=== PATIENT | female | born 1950 | race Caucasian/White ===

== ENCOUNTER 2016-04-13 19:53 | Inpatient (IN) | payer MEDICARE, BC ==
--- NOTE | 2016-04-13 20:42 | EDM.PDOC ---
ED HISTORY OF PRESENT ILLNESS - General Chief Complaint: Respiratory Problem Stated Complaint: ILLNESS Time Seen by Provider: 04/13/16 20:10 Source: Reports: Patient, Family History Limitations: Reports: No limitations - History of Present Illness INITIAL COMMENTS - FREE TEXT/NARRATIVE: 65-year-old female with very severe advanced COPD has had increasing shortness of breath over the past several days. She is on Proventil Zithromax 3 times a week and was started on Levaquin several days ago in response to a productive cough. She's also been running "low-grade fevers". She gets very distressed at night, anxious, and can't breathe. Severity: moderate Associated Symptoms: Reports: cough, fever/chills, weakness - Related Data Allergies/ADRs: Allergies Allergy/AdvReac Type Severity Reaction Status Date / Time Cephalosporins Allergy Severe Anaphylactic Verified 04/13/16 19:56 Shock Penicillins Allergy Severe Anaphylactic Verified 04/13/16 19:56 Shock adhesive Allergy Unknown Cannot Verified 04/13/16 19:56 Remember Iodinated Contrast Media - Allergy Itching Verified 04/13/16 19:56 Oral and [Iodinated Contrast Media - IV Dye] erythromycin base AdvReac Unknown Nausea and Verified 04/13/16 19:56 [Erythromycin Base] Vomiting Home Meds: Home Meds Nitroglycerin [Nitrostat] 0.4 mg SL DAILY PRN 12/28/12 [History] Albuterol/Ipratropium [DuoNeb 3.0-0.5 MG/3 ML] 3 ml NEB QIDRT #100 [facility] 03/28/14 [Rx] Budesonide [Pulmicort] 0.5 mg NEB BIDRT #60 [facility] 03/28/14 [Rx] Simethicone [Gas-X] 80 mg PO TID PRN 07/24/14 [History] Cholecalciferol (Vitamin D3) [Vitamin D3] 1,000 units PO DAILY #0 12/12/14 [ History] Acetaminophen [Tylenol] 650 mg PO Q4H PRN 04/28/15 [History] Aspirin [Halfprin] 81 mg PO DAILY 05/29/15 [History] Famotidine [Pepcid] 20 mg PO DAILY 05/29/15 [History] busPIRone [Buspar] 20 mg PO TID 05/29/15 [History] LORazepam [Ativan] 1 mg PO BID 06/10/15 [History] Calcitonin ([place]) [Miacalcin Nasal [place]] 1 spray NS DAILY 10/16/15 [History] Triamcinolone Acetonide [Triamcinolone Acetonide 0.1% Crm] 1 dose TOP DAILY PRN 10/16/15 [History] Warfarin [Coumadin] 5 mg PO ASDIRECTED 10/16/15 [History] Warfarin [Coumadin] 7.5 mg PO ASDIRECTED 10/16/15 [History] Arformoterol [Brovana] 15 mcg NEB BID neb 10/20/15 [Rx] guaiFENesin [Mucinex] 400 mg PO TID 12/20/15 [History] ALPRAZolam [Alprazolam] 0.25 mg PO BID PRN #20 tablet 12/21/15 [Rx] Citalopram Hydrobromide [Celexa] 20 mg PO DAILY 12/29/15 [History] Carvedilol 12.5 mg PO BID 02/08/16 [History] Prednisone [IJD: predniSONE] 10 mg PO WITHBREAKFAST 02/08/16 [History] rOPINIRole [Requip] 1 mg PO BEDTIME 02/08/16 [History] Diltiazem [Dilacor XR] 180 mg PO DAILY 02/24/16 [History] Azithromycin 500 mg PO ASDIRECTED 04/13/16 [History] Bumetanide [Bumex] 1 mg PO BID 04/13/16 [History] L.acidoph,Paracasei, B.lactis [Probiotic] 2 each PO DAILY 04/13/16 [History] Levofloxacin [Levaquin] 250 mg PO DAILY 04/13/16 [History] Mirtazapine [Remeron] 22.5 mg PO BEDTIME 04/13/16 [History] Morphine [MS Contin] 15 mg PO Q12H 04/13/16 [History] Nystatin [Mycostatin] 500,000 unit PO QID 04/13/16 [History] Potassium Chloride [Klor-Con M20] 20 meq PO BID 04/13/16 [History] Sennosides/Docusate Sodium [Senna Laxative Tablet] 1 tab PO BID 04/13/16 [ History] Tiotropium [Spiriva] 18 mcg INH DAILY 04/13/16 [History] oxyCODONE 10 mg PO BID PRN 04/13/16 [History] Past Medical History HEENT History: Reports: Cataract, Other (see below) Other HEENT History: dry nose Cardiovascular History: Reports: Aneurysm, CAD, Hypertension, VT, SOB on exertion Other Cardiovascular History: 3 stents, aneurysm was repaired Respiratory History: Reports: Asthma, Bronchitis, recurrent, COPD, Intubation, previous, Pneumonia, recurrent, SOB Gastrointestinal History: Reports: Chronic diarrhea, Irritable bowel syndrome, Other (see below) Other Gastrointestinal History: microscopic colitis Genitourinary History: Reports: Renal calculus, Other (see below) Other Genitourinary History: incontient a lot lately per pt 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: , Spontaneous Musculoskeletal History: Reports: Arthritis, Back pain, chronic, Fibromyalgia, Osteoporosis, Other (see below) Other Musculoskeletal History: compression fx Neurological History: Reports: Other (see below) Other Neuro History: compression fractures Psychiatric History: Reports: Anxiety, Depression Endocrine/Metabolic History: Reports: Osteoporosis Hematologic History: Reports: Other (see below) Other Hematologic History: v Leiden factor five Dermatologic History: Reports: Eczema, Other (see below) Other Dermatologic History: bruises easily related to coumadin, prednisone - Infectious Disease History Infectious Disease History: Reports: Chicken pox Other Infectious Disease History: hx of Hepatitis as a child, pt. does not know which one - Past Surgical History Cardiovascular Surgical History: Reports: Aneurysm, Coronary artery stent GI Surgical History: Reports: Appendectomy, Cholecystectomy, Colonoscopy Other GI Surgeries/Procedures: recent [facility] micrscopic colitis Female Surgical History: Reports: Breast biopsy, Other (see below) Other Female Surgeries/Procedures: cystoscopy x1 for hematuria Neurological Surgical History: Reports: Vertebroplasty Musculoskeletal Surgical History: Reports: Shoulder surgery Social & Family History - Family History Family Medical History: Noncontributory Cardiac: Reports: [place] Respiratory: Reports: COPD : Reports: Renal disease/insufficiency Psychiatric: Reports: Depression - Tobacco Use Smoking Status *Q: Former Smoker Years of Tobacco use: 50 Packs/Tins Daily: 0 Used Tobacco, but Quit: Yes Month Tobacco Last Used: 2012 Second Hand Smoke Exposure: No - Caffeine Use Caffeine Use: Reports: Coffee, Soda, Tea Caffeine Use Comment: 3-4 cups a day - Alcohol Use Days Per Week of Alcohol Use: 3 Number of Drinks Per Day: 1 Total Drinks Per Week: 3 - Recreational Drug Use Recreational Drug Use: No Recreational Drug Type: Reports: Oxycodone Other Recreational Drug Type: per prescription Recreational Drug Use Frequency: Daily - Living Situation & Occupation Living situation: Reports: , alone, other (Has 3 children: Lisbet and Lia, one son Steven.) Occupation: retired (lives alone in [place], [place]., has one cat, 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.) ED ROS GENERAL - Review of Systems Review Of Systems: See Below Constitutional: Reports: fever, chills, malaise HEENT: Reports: No symptoms Respiratory: Reports: shortness of breath, cough, sputum Cardiovascular: Denies: Chest pain GI/Abdominal: Denies: Nausea, Vomiting Musculoskeletal: Reports: back pain Neurological: Denies: headache Psychiatric: Reports: Anxiety ED EXAM, GENERAL - Physical Exam Exam: See Below Exam Limited By: No limitations General Appearance: alert, mild distress Eye Exam: bilateral eye: EOMI Respiratory/Chest: respiratory distress (Patient displays mild respiratory distress with increased effort. She has diffuse decreased breath sounds and also diffuse expiratory wheezes.) Cardiovascular: regular rate, rhythm GI/Abdominal: soft, non tender Neurological: alert, oriented Psychiatric: anxious Course - Vital Signs Last Recorded V/S: Last Vital Signs Temp 97.8 F 04/14/16 15:00 Pulse 81 04/14/16 14:34 Resp 16 04/14/16 17:00 BP 113/61 04/14/16 17:00 Pulse Ox 95 04/14/16 17:00 - Orders/Labs/Meds Orders: Active Orders 24 hr Category Date Time Status Patient Status [ADT] Routine ADT 04/13/16 23:05 Active Bedrest Bathroom Privileges [RC] ASDIRECTED Care 04/13/16 23:05 Active Cardiac Monitoring [RC] Q6H Care 04/13/16 20:26 Active Diabetes Education [RC] Click to Edit Care 04/13/16 23:05 Active Intake and Output [RC] QSHIFT Care 04/13/16 23:05 Active Oxygen Therapy [RC] PRN Care 04/13/16 23:05 Active RT Aerosol Therapy [RC] ASDIRECTED Care 04/13/16 23:05 Active VTE/DVT Education [RC] Per Unit Routine Care 04/13/16 23:05 Active Vital Signs [RC] Q2H Care 04/13/16 23:05 Active CULTURE BLOOD [BC] Urgent Lab 04/13/16 20:30 Received CULTURE BLOOD [BC] Urgent Lab 04/13/16 21:40 Received CULTURE URINE [RM] Stat Lab 04/13/16 21:55 Received ALPRAZolam [Xanax] Med 04/13/16 23:05 Active 0.25 mg PO BID PRN Albuterol [Proventil Neb Soln] Med 04/13/16 23:05 Active 2.5 mg NEB Q4H PRN Albuterol/Ipratropium [DuoNeb 3.0-0.5 MG/3 ML] Med 04/13/16 23:05 Active 3 ml NEB QID PRN Albuterol/Ipratropium [DuoNeb 3.0-0.5 MG/3 ML] Med 04/14/16 07:00 Active 3 ml NEB QIDRT Arformoterol [Brovana] Med 04/13/16 23:05 Active 15 mcg NEB BIDRT Aspirin [Halfprin] Med 04/14/16 09:00 Active 81 mg PO DAILY Bisacodyl [Dulcolax] Med 04/13/16 23:05 Active 5 mg PO DAILY PRN Budesonide [Pulmicort] Med 04/14/16 07:00 Active 0.5 mg NEB BIDRT Carvedilol [Coreg] Med 04/14/16 09:00 Active 12.5 mg PO BIDMEALS Citalopram [Celexa] Med 04/14/16 09:00 Active 20 mg PO DAILY Diltiazem [Cardizem CD] Med 04/14/16 09:00 Active 180 mg PO DAILY Docusate Sodium [Colace] Med 04/13/16 23:05 Active 100 mg PO BID PRN Docusate Sodium/Sennosides [Senna Plus] Med 04/14/16 09:00 Active 1 tab PO BID Famotidine [Pepcid] Med 04/14/16 09:00 Active 20 mg PO DAILY Insulin Aspart [NovoLOG] Med 04/13/16 23:05 Active See Protocol SUBCUT ASDIRECTED Levofloxacin/Dextrose 5%-Water [Levaquin in D5W 500 MG/ Med 04/13/16 23:05 Active 100 ML] 500 mg Premix Bag 1 bag IV Q24H Mirtazapine [Remeron] Med 04/13/16 23:05 Active 22.5 mg PO BEDTIME Morphine [MS Contin] Med 04/13/16 23:05 Active 15 mg PO Q12H Nitroglycerin [Nitrostat] Med 04/13/16 23:05 Active 0.4 mg SL DAILY PRN Nystatin [Mycostatin] Med 04/14/16 00:00 Active 5 ml PO QID Ondansetron [Zofran] Med 04/13/16 23:05 Active 4 mg IV Q4H PRN Tiotropium [Spiriva HandiHaler] Med 04/14/16 07:00 Active 18 mcg INH DAILYRT Triamcinolone Acetonide [Triamcinolone Acetonide 0.1% Med 04/13/16 23:05 Active Crm] 0 gm TOP DAILY PRN Warfarin [Coumadin] Med 04/14/16 13:00 Active 5 mg PO MoFr@1300 Zolpidem [Ambien] Med 04/13/16 23:05 Active 5 mg PO BEDTIME PRN busPIRone [Buspar] Med 04/14/16 09:00 Active 20 mg PO TID guaiFENesin [Mucinex] Med 04/14/16 09:00 Active 600 mg PO BID oxyCODONE Med 04/13/16 23:05 Active 10 mg PO BID PRN rOPINIRole [Requip] Med 04/14/16 21:00 Active 1 mg PO BEDTIME Blood Culture x2 Reflex Set [OM.PC] Urgent Oth 04/13/16 20:26 Ordered Sequential Compression Device [OM.PC] Per Unit Routine Oth 04/13/16 23:05 Ordered Resuscitation Status Routine Resus Stat 04/13/16 22:26 Ordered Medication Orders Albuterol (Proventil Neb Soln) 2.5 mg NEB Q4H PRN PRN Reason: Shortness Of Breath/wheezing Albuterol/Ipratropium (Duoneb 3.0-0.5 Mg/3 Ml) 3 ml NEB QID PRN PRN Reason: Shortness Of Breath/wheezing Albuterol/Ipratropium (Duoneb 3.0-0.5 Mg/3 Ml) 3 ml NEB QIDRT [facility] Last Admin: 04/14/16 14:34 Dose: 3 ml Admin: 04/14/16 10:57 Dose: 3 ml Admin: 04/14/16 07:07 Dose: 3 ml Alprazolam (Xanax) 0.25 mg PO BID PRN PRN Reason: panic attack Last Admin: 04/14/16 00:38 Dose: 0.25 mg Arformoterol Tartrate (Brovana) 15 mcg NEB BIDRT [facility] Last Admin: 04/14/16 08:50 Dose: 15 mcg Admin: 04/14/16 01:08 Dose: Aspirin (Halfprin) 81 mg PO DAILY [facility] Last Admin: 04/14/16 08:16 Dose: 81 mg Bisacodyl (Dulcolax) 5 mg PO DAILY PRN PRN Reason: Constipation Budesonide (Pulmicort) 0.5 mg NEB BIDRT [facility] Last Admin: 04/14/16 07:07 Dose: 0.5 mg Buspirone HCl (Buspar) 20 mg PO TID [facility] Last Admin: 04/14/16 13:47 Dose: 20 mg Admin: 04/14/16 08:15 Dose: 20 mg Carvedilol (Coreg) 12.5 mg PO BIDMEALS [facility] Last Admin: 04/14/16 17:04 Dose: 12.5 mg Admin: 04/14/16 08:16 Dose: 12.5 mg Citalopram Hydrobromide (Celexa) 20 mg PO DAILY [facility] Last Admin: 04/14/16 08:15 Dose: 20 mg Diltiazem HCl (Cardizem Cd) 180 mg PO DAILY [facility] Last Admin: 04/14/16 08:15 Dose: 180 mg Docusate Sodium (Colace) 100 mg PO BID PRN PRN Reason: Constipation Docusate Sodium (Colace) 100 mg PO BID [facility] Last Admin: 04/14/16 11:45 Dose: 100 mg Famotidine (Pepcid) 20 mg PO DAILY [facility] Last Admin: 04/14/16 08:16 Dose: 20 mg Guaifenesin (Mucinex) 600 mg PO BID [facility] Last Admin: 04/14/16 08:16 Dose: 600 mg Levofloxacin/Dextrose 500 mg/ (Premix) 100 mls @ 100 mls/hr IV Q24H [facility] Last Admin: 04/14/16 01:03 Dose: 100 mls/hr Sodium Chloride (Normal Saline) 1,000 mls @ 75 mls/hr IV ASDIRECTED [facility] Insulin Aspart (Novolog) 0 unit SUBCUT ASDIRECTED [facility] PRN Reason: Protocol Last Admin: 04/14/16 17:05 Dose: 1 unit Admin: 04/14/16 12:04 Dose: 2 unit Admin: 04/14/16 08:21 Dose: 1 unit Lorazepam (Ativan) 1 mg IVPUSH Q2H PRN PRN Reason: Anxiety Last Admin: 04/14/16 14:19 Dose: 1 mg Methylprednisolone Sodium Succinate (Solu-Medrol) 40 mg IVPUSH Q6H [facility] Last Admin: 04/14/16 17:04 Dose: 40 mg Admin: 04/14/16 11:45 Dose: 40 mg Mirtazapine (Remeron) 22.5 mg PO BEDTIME [facility] Last Admin: 04/14/16 01:06 Dose: 22.5 mg Morphine Sulfate (Ms Contin) 15 mg PO Q12H [facility] Stop: 04/18/16 23:59 Last Admin: 04/14/16 11:45 Dose: 15 mg Admin: 04/14/16 00:22 Dose: 15 mg Nitroglycerin (Nitrostat) 0.4 mg SL DAILY PRN PRN Reason: Chest Pain Nystatin (Mycostatin) 5 ml PO QID [facility] Last Admin: 04/14/16 17:04 Dose: 5 ml Admin: 04/14/16 09:43 Dose: 5 ml Admin: 04/14/16 05:32 Dose: Admin: 04/14/16 01:15 Dose: Ondansetron HCl (Zofran) 4 mg IV Q4H PRN PRN Reason: Nausea/Vomiting Oxycodone HCl (Oxycodone) 10 mg PO BID PRN PRN Reason: Pain Polyethylene Glycol (Miralax) 17 gm PO DAILY [facility] Last Admin: 04/14/16 11:45 Dose: 17 gm Ropinirole HCl (Requip) 1 mg PO BEDTIME [facility] Senna/Docusate Sodium (Senna Plus) 1 tab PO BID [facility] Last Admin: 04/14/16 09:43 Dose: 1 tab Tiotropium [place] (Spiriva Handihaler) 18 mcg INH DAILYRT [facility] Last Admin: 04/14/16 08:50 Dose: 18 mcg Triamcinolone Acetonide (Triamcinolone Acetonide 0.1% Crm) 0 gm TOP DAILY PRN PRN Reason: Rash Warfarin Sodium (Coumadin) 5 mg PO MoFr@1300 [facility] Last Admin: 04/14/16 13:46 Dose: 5 mg Warfarin Sodium (Coumadin) 7.5 mg PO SuTuWeThSa@1300 [facility] Zolpidem Tartrate (Ambien) 5 mg PO BEDTIME PRN PRN Reason: Sleep Labs: Laboratory Tests 04/13/16 04/13/16 04/13/16 Range/Units 20:23 20:23 20:29 WBC 10.3 (4.5-11.0) K/uL RBC 3.44 (3.30-5.50) M/uL Hgb 10.7 L (12.0-15.0) g/dL Hct 35.8 L (36.0-48.0) % MCV 104 H (80-98) fL MCH 31 (27-31) pg MCHC 30 L (32-36) % Plt Count 206 (150-400) K/uL Neut % (Auto) 63 (36-66) % Lymph % (Auto) 10 L (24-44) % [place] % (Auto) 13 H (2-6) % Eos % (Auto) 14 H (2-4) % Baso % (Auto) 1 (0-1) % PT 29.4 H (9.5-12.0) sec INR 2.69 H (0.80-1.20) Puncture Site ABG pH (7.350-7.450) ABG pCO2 (35.0-42.0) mmHg ABG pO2 (75.0-100.0) mmHg ABG HCO3 (22.0-26.0) mmol/L ABG Total CO2 (21.0-25.0) mmol/L ABG O2 Saturation (95.0-98.0) % ABG O2 Content (15.0-23.0) %vol ABG Base Excess mm/L ABG Hemoglobin (12.0-16.0) g/dL ABG Oxyhemoglobin % ABG Carboxyhemoglobin (0.0-1.6) % ABG Methemoglobin % Cornelio Test O2 Delivery Device Oxygen Flow Rate L Sodium 144 (140-148) mmol/L Potassium 4.4 (3.6-5.2) mmol/L Chloride 105 (100-108) mmol/L Carbon Dioxide 35 H (21-32) mmol/L Anion Gap 8.4 (5.0-14.0) mmol/L BUN 21 H (7-18) mg/dL Creatinine 1.3 H (0.6-1.0) mg/dL Est Cr Clr Drug Dosing 32.92 mL/min Estimated GFR (MDRD) 41 L (>60) Glucose 135 H (74-106) mg/dL Lactic Acid (0.4-2.0) mmol/L Calcium 8.4 L (8.5-10.1) mg/dL Magnesium (1.8-2.4) mg/dL Amylase (25-115) U/L Lipase (73-393) U/L Urine Color Urine Appearance Urine pH (4.5-8.0) Ur Specific [place] (1.008-1.030) Urine Protein (NEGATIVE) mg/dL Urine Glucose (UA) (NEGATIVE) mg/dL Urine Ketones (NEGATIVE) mg/dL Urine Occult Blood (NEGATIVE) Urine Nitrite (NEGATIVE) Urine Bilirubin (NEGATIVE) Urine Urobilinogen (NORMAL) mg/dL Ur Leukocyte Esterase (NEGATIVE) Urine RBC (0-5) Urine WBC (0-5) Ur Epithelial Cells Amorphous Sediment Urine Bacteria Urine Mucus 04/13/16 04/13/16 04/13/16 Range/Units 20:31 20:42 21:30 WBC (4.5-11.0) K/uL RBC (3.30-5.50) M/uL Hgb (12.0-15.0) g/dL Hct (36.0-48.0) % MCV (80-98) fL MCH (27-31) pg MCHC (32-36) % Plt Count (150-400) K/uL Neut % (Auto) (36-66) % Lymph % (Auto) (24-44) % [place] % (Auto) (2-6) % Eos % (Auto) (2-4) % Baso % (Auto) (0-1) % PT (9.5-12.0) sec INR (0.80-1.20) Puncture Site Lt.radial ABG pH 7.374 (7.350-7.450) ABG pCO2 54.8 H (35.0-42.0) mmHg ABG pO2 77.3 (75.0-100.0) mmHg ABG HCO3 31.3 H (22.0-26.0) mmol/L ABG Total CO2 29.0 H (21.0-25.0) mmol/L ABG O2 Saturation 95.0 (95.0-98.0) % ABG O2 Content 13.9 L (15.0-23.0) %vol ABG Base Excess 5.5 mm/L ABG Hemoglobin 10.5 L (12.0-16.0) g/dL ABG Oxyhemoglobin 93.7 % ABG Carboxyhemoglobin 0.6 (0.0-1.6) % ABG Methemoglobin 0.8 % Cornelio Test Passed O2 Delivery Device Nasal cannula Oxygen Flow Rate 4 L Sodium (140-148) mmol/L Potassium (3.6-5.2) mmol/L Chloride (100-108) mmol/L Carbon Dioxide (21-32) mmol/L Anion Gap (5.0-14.0) mmol/L BUN (7-18) mg/dL Creatinine (0.6-1.0) mg/dL Est Cr Clr Drug Dosing mL/min Estimated GFR (MDRD) (>60) Glucose (74-106) mg/dL Lactic Acid 1.2 (0.4-2.0) mmol/L Calcium (8.5-10.1) mg/dL Magnesium 2.3 (1.8-2.4) mg/dL Amylase 46 (25-115) U/L Lipase 131 (73-393) U/L Urine Color Urine Appearance Urine pH (4.5-8.0) Ur Specific [place] (1.008-1.030) Urine Protein (NEGATIVE) mg/dL Urine Glucose (UA) (NEGATIVE) mg/dL Urine Ketones (NEGATIVE) mg/dL Urine Occult Blood (NEGATIVE) Urine Nitrite (NEGATIVE) Urine Bilirubin (NEGATIVE) Urine Urobilinogen (NORMAL) mg/dL Ur Leukocyte Esterase (NEGATIVE) Urine RBC (0-5) Urine WBC (0-5) Ur Epithelial Cells Amorphous Sediment Urine Bacteria Urine Mucus 04/13/16 Range/Units 21:55 WBC (4.5-11.0) K/uL RBC (3.30-5.50) M/uL Hgb (12.0-15.0) g/dL Hct (36.0-48.0) % MCV (80-98) fL MCH (27-31) pg MCHC (32-36) % Plt Count (150-400) K/uL Neut % (Auto) (36-66) % Lymph % (Auto) (24-44) % [place] % (Auto) (2-6) % Eos % (Auto) (2-4) % Baso % (Auto) (0-1) % PT (9.5-12.0) sec INR (0.80-1.20) Puncture Site ABG pH (7.350-7.450) ABG pCO2 (35.0-42.0) mmHg ABG pO2 (75.0-100.0) mmHg ABG HCO3 (22.0-26.0) mmol/L ABG Total CO2 (21.0-25.0) mmol/L ABG O2 Saturation (95.0-98.0) % ABG O2 Content (15.0-23.0) %vol ABG Base Excess mm/L ABG Hemoglobin (12.0-16.0) g/dL ABG Oxyhemoglobin % ABG Carboxyhemoglobin (0.0-1.6) % ABG Methemoglobin % Cornelio Test O2 Delivery Device Oxygen Flow Rate L Sodium (140-148) mmol/L Potassium (3.6-5.2) mmol/L Chloride (100-108) mmol/L Carbon Dioxide (21-32) mmol/L Anion Gap (5.0-14.0) mmol/L BUN (7-18) mg/dL Creatinine (0.6-1.0) mg/dL Est Cr Clr Drug Dosing mL/min Estimated GFR (MDRD) (>60) Glucose (74-106) mg/dL Lactic Acid (0.4-2.0) mmol/L Calcium (8.5-10.1) mg/dL Magnesium (1.8-2.4) mg/dL Amylase (25-115) U/L Lipase (73-393) U/L Urine Color Yellow Urine Appearance Clear Urine pH 8.0 (4.5-8.0) Ur Specific [place] 1.015 (1.008-1.030) Urine Protein Negative (NEGATIVE) mg/dL Urine Glucose (UA) Normal (NEGATIVE) mg/dL Urine Ketones Negative (NEGATIVE) mg/dL Urine Occult Blood Negative (NEGATIVE) Urine Nitrite Negative (NEGATIVE) Urine Bilirubin Negative (NEGATIVE) Urine Urobilinogen Normal (NORMAL) mg/dL Ur Leukocyte Esterase Negative (NEGATIVE) Urine RBC 0-5 (0-5) Urine WBC 10-20 H (0-5) Ur Epithelial Cells Few Amorphous Sediment Not seen Urine Bacteria Many Urine Mucus Not seen Meds: Medications Generic Name Dose Route Start Last Admin Trade Name Freq PRN Reason Stop Dose Admin Albuterol 2.5 mg 04/13/16 23:05 Proventil Neb Soln NEB Q4H PRN Shortness Of Breath/wheezing Albuterol/Ipratropium 3 ml 04/13/16 23:05 Duoneb 3.0-0.5 Mg/3 Ml NEB QID PRN Shortness Of Breath/wheezing Albuterol/Ipratropium 3 ml 04/14/16 07:00 04/14/16 14:34 Duoneb 3.0-0.5 Mg/3 Ml NEB 3 ml QIDRT [facility] Administration Alprazolam 0.25 mg 04/13/16 23:05 04/14/16 00:38 Xanax PO 0.25 mg BID PRN Administration panic attack Arformoterol Tartrate 15 mcg 04/13/16 23:05 04/14/16 08:50 Brovana NEB 15 mcg BIDRT [facility] Administration Aspirin 81 mg 04/14/16 09:00 04/14/16 08:16 Halfprin PO 81 mg DAILY [facility] Administration Bisacodyl 5 mg 04/13/16 23:05 Dulcolax PO DAILY PRN Constipation Budesonide 0.5 mg 04/14/16 07:00 04/14/16 07:07 Pulmicort NEB 0.5 mg BIDRT [facility] Administration Buspirone HCl 20 mg 04/14/16 09:00 04/14/16 13:47 Buspar PO 20 mg TID [facility] Administration Carvedilol 12.5 mg 04/14/16 09:00 04/14/16 17:04 Coreg PO 12.5 mg BIDMEALS [facility] Administration Citalopram Hydrobromide 20 mg 04/14/16 09:00 04/14/16 08:15 Celexa PO 20 mg DAILY [facility] Administration Diltiazem HCl 180 mg 04/14/16 09:00 04/14/16 08:15 Cardizem Cd PO 180 mg DAILY [facility] Administration Docusate Sodium 100 mg 04/13/16 23:05 Colace PO BID PRN Constipation Docusate Sodium 100 mg 04/14/16 11:00 04/14/16 11:45 Colace PO 100 mg BID [facility] Administration Famotidine 20 mg 04/14/16 09:00 04/14/16 08:16 Pepcid PO 20 mg DAILY [facility] Administration Guaifenesin 600 mg 04/14/16 09:00 04/14/16 08:16 Mucinex PO 600 mg BID [facility] Administration Levofloxacin/Dextrose 500 mg/ 100 mls @ 100 mls/hr 04/13/16 23:05 04/14/16 01 :03 Premix IV 100 mls/hr Q24H [facility] Administration Sodium Chloride 1,000 mls @ 75 mls/hr 04/14/16 10:30 Normal Saline IV ASDIRECTED [facility] Insulin Aspart 0 unit 04/13/16 23:05 04/14/16 17:05 Novolog SUBCUT 1 unit ASDIRECTED [facility] Administration Protocol Lorazepam 1 mg 04/14/16 02:10 04/14/16 14:19 Ativan IVPUSH 1 mg Q2H PRN Administration Anxiety Methylprednisolone Sodium Succinate 40 mg 04/14/16 11:00 04/14/16 17:04 Solu-Medrol IVPUSH 40 mg Q6H [facility] Administration Mirtazapine 22.5 mg 04/13/16 23:05 04/14/16 01:06 Remeron PO 22.5 mg BEDTIME [facility] Administration Morphine Sulfate 15 mg 04/13/16 23:05 04/14/16 11:45 Ms Contin PO 04/18/16 23:59 15 mg Q12H DAVIN Administration Nitroglycerin 0.4 mg 04/13/16 23:05 Nitrostat SL DAILY PRN Chest Pain Nystatin 5 ml 04/14/16 00:00 04/14/16 17:04 Mycostatin PO 5 ml QID DAVIN Administration Ondansetron HCl 4 mg 04/13/16 23:05 Zofran IV Q4H PRN Nausea/Vomiting Oxycodone HCl 10 mg 04/13/16 23:05 Oxycodone PO BID PRN Pain Polyethylene Glycol 17 gm 04/14/16 11:00 04/14/16 11:45 Miralax PO 17 gm DAILY DAVIN Administration Ropinirole HCl 1 mg 04/14/16 21:00 Requip PO BEDTIME DAVIN Senna/Docusate Sodium 1 tab 04/14/16 09:00 04/14/16 09:43 Senna Plus PO 1 tab BID DAVIN Administration Tiotropium Aurora 18 mcg 04/14/16 07:00 04/14/16 08:50 Spiriva Handihaler INH 18 mcg DAILYRT DAVIN Administration Triamcinolone Acetonide 0 gm 04/13/16 23:05 Triamcinolone Acetonide 0.1% Crm TOP DAILY PRN Rash Warfarin Sodium 5 mg 04/14/16 13:00 04/14/16 13:46 Coumadin PO 5 mg [id number] DAVIN Administration Warfarin Sodium 7.5 mg 04/15/16 13:00 Coumadin PO [email or web address] DAVIN Zolpidem Tartrate 5 mg 04/13/16 23:05 Ambien PO BEDTIME PRN Sleep Discontinued Medications Generic Name Dose Route Start Last Admin Trade Name Carringtonq PRN Reason Stop Dose Admin Lorazepam 1 mg 04/13/16 22:02 04/13/16 22:19 Ativan IVPUSH 04/13/16 22:03 1 mg ONETIME ONE Administration Lorazepam 2 mg 04/14/16 02:08 04/14/16 02:08 Ativan IVPUSH 04/14/16 02:09 2 mg ONETIME ONE Administration Methylprednisolone Sodium Succinate 125 mg 04/14/16 00:00 04/14/16 05:31 Solu-Medrol IVPUSH 125 mg Q6H DAVIN Administration Potassium Chloride 20 meq 04/14/16 09:00 04/14/16 08:15 Klor-Con M20 PO 20 meq BID DAVIN Administration - Re-Assessments/Exams Free Text/Narrative Re-Assessment/Exam: 04/13/16 20:39 A CBC and BMP were obtained. A 1 view chest x-ray was also obtained which looks stable without failure or infiltrates at this time. I asked Mera Giang of the hospitalist service to evaluate the patient for admission for treatment of her symptoms along with IV steroids and evaluate for any other options of treatment. Departure - Departure Time of Disposition: 23:14 Disposition: Admitted As Inpatient 64 Condition: poor Clinical Impression: Bronchitis COPD (chronic obstructive pulmonary disease) Qualifiers: COPD type: emphysema Emphysema type: panlobular Qualified Code(s): J43.1 - Panlobular emphysema Anxiety disorder Qualifiers: Anxiety disorder type: other mixed anxiety disorder Qualified Code(s): F41.3 - Other mixed anxiety disorders
[2016-04-13] MEDS ORDERED: LORazepam 2 MG/ML MDV IVPUSH ONE (22:02)
[2016-04-13] MEDS ORDERED: Bisacodyl 5 MG Tab PO PRN (23:05)
[2016-04-13] MEDS ORDERED: Ondansetron 4 MG/2 ML SDV IV PRN (23:05)
[2016-04-13] MEDS ORDERED: Zolpidem 5 MG Tab PO PRN (23:05)
[2016-04-13] MEDS ORDERED: Albuterol/Ipratropium 3.0-0.5 MG/3 ML Neb Soln NEB PRN (23:05)
[2016-04-13] MEDS ORDERED: oxyCODONE 5 MG Tab PO PRN (23:05)
[2016-04-13] MEDS ORDERED: Nitroglycerin 0.4 MG Tab.SL SL PRN (23:05)
[2016-04-13] MEDS ORDERED: Triamcinolone Acetonide 0.1% Crm 15 GM Tube TOP PRN (23:05)
[2016-04-14] MEDS: Morphine 15 MG Tab.ER PO SCH ×3 (00:22→22:22)
[2016-04-14] MEDS: methylPREDNISolone Sodium Succinate 125 MG/2 ML SDV IVPUSH SCH ×2 (00:23→05:31)
[2016-04-14] MEDS: ALPRAZolam 0.25 MG Tab PO PRN (00:38)
[2016-04-14] MEDS: Levofloxacin/Dextrose 5%-Water 500 MG in Premix Bag 1 BAG IV SCH ×2 (01:03→22:15)
[2016-04-14] MEDS: Mirtazapine 15 MG Tab PO SCH ×2 (01:06→20:21)
[2016-04-14] MEDS: Arformoterol 15 MCG/2 ML Neb Soln NEB SCH ×3 (01:08→20:14)
[2016-04-14] MEDS: Nystatin Susp 100,000 Unit/ML 5 ML UD Cup PO SCH ×5 (01:15→22:13)
[2016-04-14] MEDS ORDERED: LORazepam 2 MG/ML MDV IVPUSH ONE (02:08)
--- NOTE | 2016-04-14 05:56 | PCM.HP ---
H&P History of Present Illness - General Date of Service: 04/13/16 Source of Information: Patient, EMS, [facility] records History Limitations: Reports: No limitations - History of Present Illness Initial Comments - Free Text/Narative: - History of Present Illness INITIAL COMMENTS - FREE TEXT/NARRATIVE: 65-year-old female with very severe advanced COPD has had increasing shortness of breath over the past several days. She is on Proventil Zithromax 3 times a week and was started on Levaquin several days ago in response to a productive cough. She's also been running "low-grade fevers". She gets very distressed at night, anxious, and can't breathe. Severity: moderate 04/13/16 20:39 A CBC and BMP were obtained. A 1 view chest x-ray was also obtained which looks stable without failure or infiltrates at this time. I asked Mera Giang of the hospitalist service to evaluate the patient for admission for treatment of her symptoms along with IV steroids and evaluate for any other options of treatment. Onset of Symptoms: Reports: sudden Duration of Symptoms: Reports: Getting worse Location: Reports: chest Quality: Reports: Same as previous episode Improves with: Reports: None Worsens with: Reports: None Context: Reports: other (chronic COPD) Associated Symptoms: Reports: cough, fever/chills (low grade temp for 2 days. 100.9 and 99), shortness of breath (worse of respiratory status) - Related Data Allergies/Adverse Reactions: Allergies Allergy/AdvReac Type Severity Reaction Status Date / Time Cephalosporins Allergy Severe Anaphylactic Verified 04/13/16 19:56 Shock Penicillins Allergy Severe Anaphylactic Verified 04/13/16 19:56 Shock adhesive Allergy Unknown Cannot Verified 04/13/16 19:56 Remember Iodinated Contrast Media - Allergy Itching Verified 04/13/16 19:56 Oral and [Iodinated Contrast Media - IV Dye] erythromycin base AdvReac Unknown Nausea and Verified 04/13/16 19:56 [Erythromycin Base] Vomiting Home Medications: Home Meds Nitroglycerin [Nitrostat] 0.4 mg SL DAILY PRN 12/28/12 [History] Albuterol/Ipratropium [DuoNeb 3.0-0.5 MG/3 ML] 3 ml NEB QIDRT #100 neb 03/28/14 [Rx] Budesonide [Pulmicort] 0.5 mg NEB BIDRT #60 neb 03/28/14 [Rx] Simethicone [Gas-X] 80 mg PO TID PRN 07/24/14 [History] Cholecalciferol (Vitamin D3) [Vitamin D3] 1,000 units PO DAILY #0 12/12/14 [ History] Acetaminophen [Tylenol] 650 mg PO Q4H PRN 04/28/15 [History] Aspirin [Halfprin] 81 mg PO DAILY 05/29/15 [History] Famotidine [Pepcid] 20 mg PO DAILY 05/29/15 [History] busPIRone [Buspar] 20 mg PO TID 05/29/15 [History] LORazepam [Ativan] 1 mg PO BID 06/10/15 [History] Calcitonin ([place]) [Miacalcin Nasal [place]] 1 spray NS DAILY 10/16/15 [History] Triamcinolone Acetonide [Triamcinolone Acetonide 0.1% Crm] 1 dose TOP DAILY PRN 10/16/15 [History] Warfarin [Coumadin] 5 mg PO ASDIRECTED 10/16/15 [History] Warfarin [Coumadin] 7.5 mg PO ASDIRECTED 10/16/15 [History] Arformoterol [Brovana] 15 mcg NEB BID neb 10/20/15 [Rx] guaiFENesin [Mucinex] 400 mg PO TID 12/20/15 [History] ALPRAZolam [Alprazolam] 0.25 mg PO BID PRN #20 tablet 12/21/15 [Rx] Citalopram Hydrobromide [Celexa] 20 mg PO DAILY 12/29/15 [History] Carvedilol 12.5 mg PO BID 02/08/16 [History] Prednisone [IJD: predniSONE] 10 mg PO WITHBREAKFAST 02/08/16 [History] rOPINIRole [Requip] 1 mg PO BEDTIME 02/08/16 [History] Diltiazem [Dilacor XR] 180 mg PO DAILY 02/24/16 [History] Azithromycin 500 mg PO ASDIRECTED 04/13/16 [History] Bumetanide [Bumex] 1 mg PO BID 04/13/16 [History] L.acidoph,Paracasei, B.lactis [Probiotic] 2 each PO DAILY 04/13/16 [History] Levofloxacin [Levaquin] 250 mg PO DAILY 04/13/16 [History] Mirtazapine [Remeron] 22.5 mg PO BEDTIME 04/13/16 [History] Morphine [MS Contin] 15 mg PO Q12H 04/13/16 [History] Nystatin [Mycostatin] 500,000 unit PO QID 04/13/16 [History] Potassium Chloride [Klor-Con M20] 20 meq PO BID 04/13/16 [History] Sennosides/Docusate Sodium [Senna Laxative Tablet] 1 tab PO BID 04/13/16 [ History] Tiotropium [Spiriva] 18 mcg INH DAILY 04/13/16 [History] oxyCODONE 10 mg PO BID PRN 04/13/16 [History] Past Medical History HEENT History: Reports: Cataract, Other (see below) Other HEENT History: dry nose Cardiovascular History: Reports: Aneurysm, CAD, Hypertension, [place], SOB on exertion Other Cardiovascular History: 3 stents, aneurysm was repaired Respiratory History: Reports: Asthma, Bronchitis, recurrent, COPD, Intubation, previous, Pneumonia, recurrent, SOB Gastrointestinal History: Reports: Chronic diarrhea, Irritable bowel syndrome, Other (see below) Other Gastrointestinal History: microscopic colitis Genitourinary History: Reports: Renal calculus, Other (see below) Other Genitourinary History: incontient a lot lately per pt 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: , Spontaneous Musculoskeletal History: Reports: Arthritis, Back pain, chronic, Fibromyalgia, Osteoporosis, Other (see below) Other Musculoskeletal History: compression fx Neurological History: Reports: Other (see below) Other Neuro History: compression fractures Psychiatric History: Reports: Anxiety, Depression Endocrine/Metabolic History: Reports: Osteoporosis Hematologic History: Reports: Other (see below) Other Hematologic History: v Leiden factor five Dermatologic History: Reports: Eczema, Other (see below) Other Dermatologic History: bruises easily related to coumadin, prednisone - Infectious Disease History Infectious Disease History: Reports: Chicken pox Other Infectious Disease History: hx of Hepatitis as a child, pt. does not know which one - Past Surgical History Cardiovascular Surgical History: Reports: Aneurysm, Coronary artery stent GI Surgical History: Reports: Appendectomy, Cholecystectomy, Colonoscopy Other GI Surgeries/Procedures: recent dx [facility] micrscopic colitis Female Surgical History: Reports: Breast biopsy, Other (see below) Other Female Surgeries/Procedures: cystoscopy x1 for hematuria Neurological Surgical History: Reports: Vertebroplasty Musculoskeletal Surgical History: Reports: Shoulder surgery Social & Family History - Family History Family Medical History: Noncontributory Cardiac: Reports: [place] Respiratory: Reports: COPD : Reports: Renal disease/insufficiency Psychiatric: Reports: Depression - Tobacco Use Smoking Status *Q: Former Smoker Years of Tobacco use: 50 Packs/Tins Daily: 0 Used Tobacco, but Quit: Yes Month Tobacco Last Used: 2012 Second Hand Smoke Exposure: No - Caffeine Use Caffeine Use: Reports: Coffee, Soda, Tea Caffeine Use Comment: 3-4 cups a day - Alcohol Use Days Per Week of Alcohol Use: 3 Number of Drinks Per Day: 1 Total Drinks Per Week: 3 - Recreational Drug Use Recreational Drug Use: No Recreational Drug Type: Reports: Oxycodone Other Recreational Drug Type: per prescription Recreational Drug Use Frequency: Daily - Living Situation & Occupation Living situation: Reports: , extended care facility, other (Has 3 children: Stephie, one son Steven.) Occupation: retired (retired Nurse.) H&P Review of Systems - Review of Systems: Review Of Systems: See Below General: Reports: fever, chills, fatigue, other (worsen of breathing.) HEENT: Reports: glasses Pulmonary: Reports: shortness of breath, pleuritic chest pain, cough, other ( reports lungs feeling tight) Cardiovascular: Reports: no symptoms Gastrointestinal: Reports: No symptoms Genitourinary: Reports: no symptoms Musculoskeletal: Reports: muscle pain Skin: Reports: no symptoms Psychiatric: Reports: anxiety (restless, doesnt feel safe at [facility] tonight. worried about breathing) Neurological: Reports: no symptoms, weakness Hematologic/Lymphatic: Reports: no symptoms Immunologic: Reports: no symptoms Exam - Exam Exam: See Below - Vital Signs Vital Signs: Last Vital Signs Temp 37.4 C 04/14/16 02:38 Pulse 78 04/14/16 02:38 Resp 27 H 04/14/16 02:38 BP 135/77 04/13/16 23:05 Pulse Ox 93 L 04/14/16 02:38 Weight: 67.132 kg - Exam Quality Assessment: supplemental oxygen General: alert, oriented, cooperative, moderate distress HEENT: PERRLA, Hearing intact, Mucosa moist & pink, Nares patent, Normal nasal septum, Posterior pharynx clear, Conjunctiva clear, EOMI, EACs clear, TMs clear Neck: supple, trachea midline, 2 Lungs: Clear to auscultation, Normal respiratory effort, Decreased breath sounds Cardiovascular: regular rate, regular rhythm, normal S1, normal S2 Abdomen: normal bowel sounds, soft (Female) Exam: Deferred Rectal (Female) Exam: Deferred Back Exam: normal inspection, full range of motion Extremities: normal inspection Skin: warm, dry, intact Neurological: reflexes equal bilateral Neuro Extensive - Mental Status: alert, oriented x3, normal mood/affect, normal cognition, memory intact Psychiatric: alert, anxious Physical Exam Comments:: Mrs. Zuniga is sitting straight up on stretcher, breathing in short puffs, able to speak in complete sentence. appears frail and chronically ill. appears anxieous. Daughter and Son-in-law at bedside. - Patient Data Lab Results last 24 hrs: Laboratory Results - last 24 hr 04/14/16 04/14/16 Range/Units 05:00 05:00 WBC 8.5 (4.5-11.0) K/uL RBC 3.43 (3.30-5.50) M/uL Hgb 10.6 L (12.0-15.0) g/dL Hct 36.1 (36.0-48.0) % MCV 105 H (80-98) fL MCH 31 (27-31) pg MCHC 29 L (32-36) % Plt Count 195 (150-400) K/uL Neut % (Auto) 88 H (36-66) % Lymph % (Auto) 7 L (24-44) % [place] % (Auto) 2 (2-6) % Eos % (Auto) 3 (2-4) % Baso % (Auto) 0 (0-1) % Sodium 142 (140-148) mmol/L Potassium 5.4 H (3.6-5.2) mmol/L Chloride 105 (100-108) mmol/L Carbon Dioxide 34 H (21-32) mmol/L Anion Gap 8.4 (5.0-14.0) mmol/L BUN 23 H (7-18) mg/dL Creatinine 1.3 H (0.6-1.0) mg/dL Est Cr Clr Drug Dosing 31.69 mL/min Estimated GFR (MDRD) 41 L (>60) Glucose 160 H (74-106) mg/dL Calcium 8.7 (8.5-10.1) mg/dL Result Diagrams: 04/14/16 05:00 04/14/16 05:00 *Q Meaningful Use (ADM) - VTE *Q VTE Criteria *Q: - Stroke *Q Stroke Criteria *Q: - AMI *Q AMI Criteria *Q: - Problem List (1) COPD (chronic obstructive pulmonary disease) SNOMED Code(s): 59611066 ICD Code: J44.9 - CHRONIC OBSTRUCTIVE PULMONARY DISEASE, UNSPECIFIED Status : Acute Priority: High Current Visit: Yes Qualifiers: COPD type: emphysema Emphysema type: panlobular Qualified Code(s): J43.1 - Panlobular emphysema (2) Anxiety disorder SNOMED Code(s): 746811608 ICD Code: F41.9 - ANXIETY DISORDER, UNSPECIFIED Status: Chronic Priority : High Current Visit: Yes Qualifiers: Anxiety disorder type: other mixed anxiety disorder Qualified Code(s): F41.3 - Other mixed anxiety disorders (3) Cor pulmonale, chronic SNOMED Code(s): 89137829 ICD Code: I27.81 - COR PULMONALE (CHRONIC) Status: Acute Priority: Medium Current Visit: No Problem Details: acute on chronic (4) Stage III chronic kidney disease SNOMED Code(s): 179043237 ICD Code: N18.3 - CHRONIC KIDNEY DISEASE, STAGE 3 (MODERATE) Status: Acute Priority: Medium Current Visit: No Problem List Initiated/Reviewed/Updated: Yes Orders Last 24hrs: Active Orders 24 hr Category Date Time Status LORazepam [Ativan] Med 04/14/16 02:10 Active 1 mg IVPUSH Q2H PRN Medication Orders Albuterol (Proventil Neb Soln) 2.5 mg NEB Q4H PRN PRN Reason: Shortness Of Breath/wheezing Albuterol/Ipratropium (Duoneb 3.0-0.5 Mg/3 Ml) 3 ml NEB QID PRN PRN Reason: Shortness Of Breath/wheezing Albuterol/Ipratropium (Duoneb 3.0-0.5 Mg/3 Ml) 3 ml NEB QIDRT [facility] Alprazolam (Xanax) 0.25 mg PO BID PRN PRN Reason: panic attack Last Admin: 04/14/16 00:38 Dose: 0.25 mg Arformoterol Tartrate (Brovana) 15 mcg NEB BIDRT [facility] Last Admin: 04/14/16 01:08 Dose: Aspirin (Halfprin) 81 mg PO DAILY [facility] Bisacodyl (Dulcolax) 5 mg PO DAILY PRN PRN Reason: Constipation Budesonide (Pulmicort) 0.5 mg NEB BIDRT [facility] Buspirone HCl (Buspar) 20 mg PO TID [facility] Carvedilol (Coreg) 12.5 mg PO BID [facility] Citalopram Hydrobromide (Celexa) 20 mg PO DAILY [facility] Diltiazem HCl (Cardizem Cd) 180 mg PO DAILY [facility] Docusate Sodium (Colace) 100 mg PO BID PRN PRN Reason: Constipation Famotidine (Pepcid) 20 mg PO DAILY [facility] Guaifenesin (Mucinex) 400 mg PO TID [facility] Levofloxacin/Dextrose 500 mg/ (Premix) 100 mls @ 100 mls/hr IV Q24H [facility] Last Admin: 04/14/16 01:03 Dose: 100 mls/hr Insulin Aspart (Novolog) 0 unit SUBCUT ASDIRECTED [facility] PRN Reason: Protocol Lorazepam (Ativan) 1 mg IVPUSH Q2H PRN PRN Reason: Anxiety Methylprednisolone Sodium Succinate (Solu-Medrol) 125 mg IVPUSH Q6H [facility] Last Admin: 04/14/16 05:31 Dose: 125 mg Admin: 04/14/16 00:23 Dose: 125 mg Mirtazapine (Remeron) 22.5 mg PO BEDTIME [facility] Last Admin: 04/14/16 01:06 Dose: 22.5 mg Morphine Sulfate (Ms Contin) 15 mg PO Q12H [facility] Stop: 04/18/16 23:59 Last Admin: 04/14/16 00:22 Dose: 15 mg Nitroglycerin (Nitrostat) 0.4 mg SL DAILY PRN PRN Reason: Chest Pain Nystatin (Mycostatin) 5 ml PO QID [facility] Last Admin: 04/14/16 05:32 Dose: Admin: 04/14/16 01:15 Dose: Ondansetron HCl (Zofran) 4 mg IV Q4H PRN PRN Reason: Nausea/Vomiting Oxycodone HCl (Oxycodone) 10 mg PO BID PRN PRN Reason: Pain Potassium Chloride (Klor-Con M20) 20 meq PO BID [facility] Ropinirole HCl (Requip) 1 mg PO BEDTIME [facility] Senna/Docusate Sodium (Senna Plus) 1 tab PO BID [facility] Tiotropium [place] (Spiriva Handihaler) 18 mcg INH DAILYRT [facility] Triamcinolone Acetonide (Triamcinolone Acetonide 0.1% Crm) 0 gm TOP DAILY PRN PRN Reason: Rash Warfarin Sodium (Coumadin) 5 mg PO ASDIRECTED [facility] Zolpidem Tartrate (Ambien) 5 mg PO BEDTIME PRN PRN Reason: Sleep Assessment/Plan Comment:: ASSESSMENT / PLAN 65-year-old female with very severe advanced COPD has had increasing shortness of breath over the past several days. She is on Proventil Zithromax 3 times a week and was started on Levaquin several days ago in response to a productive cough. She's also been running "low-grade fevers". She gets very distressed at night, anxious, and can't breathe. Severity: moderate 04/13/16 20:39 A CBC and BMP were obtained. A 1 view chest x-ray was also obtained which looks stable without failure or infiltrates at this time. admission for treatment of her symptoms along with IV steroids and evaluate for any other options of treatment. Plan COPD -admit to ICU Med-Surg overflow -Solumedrol 125mg IV every 6 hours -Nebulizers -IV Levaquin 500mg daily -Oxygen per nasal cannula -am labs; cbc, bmp ANXIETY -continue anxiety medication -Ativan IV 1 mg given in ER -Oxygen per nasal cannula Maintenance issues -Orders home meds: -Nutrition: Regular diet -Nunez catheter not indicated at this time -DVT: SCD -GI prophaxis; Prontinxix 20mg daily CODE STATUS: Full Admission status: Admit to ICU Med overflow Admission justification. This patient will be admitted for inpatient services and is medically appropriate meeting medical necessity for inpatient admission as outlined in my documentation. I reasonably expect the patient will require inpatient services that span. Time over 2 midnights. I reasonably expect this patient to be discharged or transferred within 96 hours after admission to the critical access hospital. Disposition;[facility] resident Primary care provider: not listed
--- NOTE | 2016-04-14 06:28 | PCM.SN ---
- Free Text/Narrative Note: time 2:09 call from ICU Med-overflow; Mrs. Zuniga is having a panic attack, requesting sedation vital signs are stable for Mrs. Zuniga a; anxiety panic attack p; Ativan 2mg IV now, Ativan 1mg IV every 2 hours prn anxiety. continue present plan of care.
[2016-04-14] MEDS: Albuterol/Ipratropium 3.0-0.5 MG/3 ML Neb Soln NEB SCH ×4 (07:07→20:18)
[2016-04-14] MEDS: Budesonide 0.5 MG/2 ML Neb Susp NEB SCH ×2 (07:07→20:20)
[2016-04-14] MEDS: Citalopram 20 MG Tab PO SCH (08:15)
[2016-04-14] MEDS: busPIRone 10 MG Tab PO SCH ×3 (08:15→20:16)
[2016-04-14] MEDS: Diltiazem 180 MG Cap.CD PO SCH (08:15)
[2016-04-14] MEDS: Carvedilol 12.5 MG Tab PO SCH ×2 (08:16→17:04)
[2016-04-14] MEDS: Famotidine 20 MG Tab PO SCH (08:16)
[2016-04-14] MEDS: guaiFENesin 600 MG Tab.ER PO SCH ×2 (08:16→20:19)
[2016-04-14] MEDS: Aspirin 81 MG Tab.EC PO SCH (08:16)
[2016-04-14] MEDS: Insulin Aspart 100 Units/ML 3 ML Pen SUBCUT SCH ×4 (08:21→21:27)
[2016-04-14] MEDS: Tiotropium Inhaler 18 MCG Inhalation Powder Cap Kit of 5 INH SCH (08:50)
[2016-04-14] MEDS ORDERED: Potassium Chloride 20 MEQ Tab.ER PO SCH (09:00)
--- NOTE | 2016-04-14 10:24 | PCM.PN ---
- General Info Date of Service: 04/14/16 Functional Status: Reports: pain controlled - Review of Systems General: Reports: weakness. Denies: fever, chills Pulmonary: Reports: shortness of breath, cough, wheezing. Denies: pleuritic chest pain, sputum, hemoptysis Cardiovascular: Reports: dyspnea on exertion. Denies: chest pain, palpitations , orthopnea, PND, edema, lightheadedness Gastrointestinal: Reports: No symptoms Systems Review Comment:: Zhane was admitted last night with acute on chronic respiratory failure secondary to COPD exacerbation and probable underlying bronchitis. With current management she is improved and reports that she is less short of breath even over the past 12 hours. Vital signs have been stable and she has remained afebrile. - Patient Data Vitals - most recent: Last Vital Signs Temp 96.4 F 04/14/16 07:00 Pulse 74 04/14/16 07:08 Resp 19 04/14/16 07:00 BP 149/85 H 04/14/16 07:00 Pulse Ox 90 L 04/14/16 07:00 Weight - most recent: 148 lb 0.011 oz Lab Results last 24 hrs: Laboratory Results - last 24 hr 04/14/16 04/14/16 Range/Units 05:00 05:00 WBC 8.5 (4.5-11.0) K/uL RBC 3.43 (3.30-5.50) M/uL Hgb 10.6 L (12.0-15.0) g/dL Hct 36.1 (36.0-48.0) % MCV 105 H (80-98) fL MCH 31 (27-31) pg MCHC 29 L (32-36) % Plt Count 195 (150-400) K/uL Neut % (Auto) 88 H (36-66) % Lymph % (Auto) 7 L (24-44) % [place] % (Auto) 2 (2-6) % Eos % (Auto) 3 (2-4) % Baso % (Auto) 0 (0-1) % Sodium 142 (140-148) mmol/L Potassium 5.4 H (3.6-5.2) mmol/L Chloride 105 (100-108) mmol/L Carbon Dioxide 34 H (21-32) mmol/L Anion Gap 8.4 (5.0-14.0) mmol/L BUN 23 H (7-18) mg/dL Creatinine 1.3 H (0.6-1.0) mg/dL Est Cr Clr Drug Dosing 31.69 mL/min Estimated GFR (MDRD) 41 L (>60) Glucose 160 H (74-106) mg/dL Calcium 8.7 (8.5-10.1) mg/dL Med Orders - Current: Current Medications Albuterol (Proventil Neb Soln) 2.5 mg NEB Q4H PRN PRN Reason: Shortness Of Breath/wheezing Albuterol/Ipratropium (Duoneb 3.0-0.5 Mg/3 Ml) 3 ml NEB QID PRN PRN Reason: Shortness Of Breath/wheezing Albuterol/Ipratropium (Duoneb 3.0-0.5 Mg/3 Ml) 3 ml NEB QIDRT [facility] Last Admin: 04/14/16 07:07 Dose: 3 ml Alprazolam (Xanax) 0.25 mg PO BID PRN PRN Reason: panic attack Last Admin: 04/14/16 00:38 Dose: 0.25 mg Arformoterol Tartrate (Brovana) 15 mcg NEB BIDRT [facility] Last Admin: 04/14/16 08:50 Dose: 15 mcg Aspirin (Halfprin) 81 mg PO DAILY [facility] Last Admin: 04/14/16 08:16 Dose: 81 mg Bisacodyl (Dulcolax) 5 mg PO DAILY PRN PRN Reason: Constipation Budesonide (Pulmicort) 0.5 mg NEB BIDRT [facility] Last Admin: 04/14/16 07:07 Dose: 0.5 mg Buspirone HCl (Buspar) 20 mg PO TID [facility] Last Admin: 04/14/16 08:15 Dose: 20 mg Carvedilol (Coreg) 12.5 mg PO BIDMEALS [facility] Last Admin: 04/14/16 08:16 Dose: 12.5 mg Citalopram Hydrobromide (Celexa) 20 mg PO DAILY [facility] Last Admin: 04/14/16 08:15 Dose: 20 mg Diltiazem HCl (Cardizem Cd) 180 mg PO DAILY [facility] Last Admin: 04/14/16 08:15 Dose: 180 mg Docusate Sodium (Colace) 100 mg PO BID PRN PRN Reason: Constipation Famotidine (Pepcid) 20 mg PO DAILY [facility] Last Admin: 04/14/16 08:16 Dose: 20 mg Guaifenesin (Mucinex) 600 mg PO BID [facility] Last Admin: 04/14/16 08:16 Dose: 600 mg Levofloxacin/Dextrose 500 mg/ (Premix) 100 mls @ 100 mls/hr IV Q24H [facility] Last Admin: 04/14/16 01:03 Dose: 100 mls/hr Insulin Aspart (Novolog) 0 unit SUBCUT ASDIRECTED [facility] PRN Reason: Protocol Last Admin: 04/14/16 08:21 Dose: 1 unit Lorazepam (Ativan) 1 mg IVPUSH Q2H PRN PRN Reason: Anxiety Mirtazapine (Remeron) 22.5 mg PO BEDTIME [facility] Last Admin: 04/14/16 01:06 Dose: 22.5 mg Morphine Sulfate (Ms Contin) 15 mg PO Q12H [facility] Stop: 04/18/16 23:59 Last Admin: 04/14/16 00:22 Dose: 15 mg Nitroglycerin (Nitrostat) 0.4 mg SL DAILY PRN PRN Reason: Chest Pain Nystatin (Mycostatin) 5 ml PO QID [facility] Last Admin: 04/14/16 09:43 Dose: 5 ml Ondansetron HCl (Zofran) 4 mg IV Q4H PRN PRN Reason: Nausea/Vomiting Oxycodone HCl (Oxycodone) 10 mg PO BID PRN PRN Reason: Pain Ropinirole HCl (Requip) 1 mg PO BEDTIME [facility] Senna/Docusate Sodium (Senna Plus) 1 tab PO BID [facility] Last Admin: 04/14/16 09:43 Dose: 1 tab Tiotropium [place] (Spiriva Handihaler) 18 mcg INH DAILYRT [facility] Last Admin: 04/14/16 08:50 Dose: 18 mcg Triamcinolone Acetonide (Triamcinolone Acetonide 0.1% Crm) 0 gm TOP DAILY PRN PRN Reason: Rash Warfarin Sodium (Coumadin) 5 mg PO MoFr@1300 [facility] Warfarin Sodium (Coumadin) 7.5 mg PO SuTuWeThSa@1300 [facility] Zolpidem Tartrate (Ambien) 5 mg PO BEDTIME PRN PRN Reason: Sleep Discontinued Medications Lorazepam (Ativan) 1 mg IVPUSH ONETIME ONE Stop: 04/13/16 22:03 Last Admin: 04/13/16 22:19 Dose: 1 mg Lorazepam (Ativan) 2 mg IVPUSH ONETIME ONE Stop: 04/14/16 02:09 Last Admin: 04/14/16 02:08 Dose: 2 mg Methylprednisolone Sodium Succinate (Solu-Medrol) 125 mg IVPUSH Q6H [facility] Last Admin: 04/14/16 05:31 Dose: 125 mg Potassium Chloride (Klor-Con M20) 20 meq PO BID [facility] Last Admin: 04/14/16 08:15 Dose: 20 meq - Exam Quality Assessment: supplemental oxygen, DVT prophylaxis General: alert, oriented, cooperative, mild distress Lungs: Decreased breath sounds, Wheezing. No: Crackles, Rales, Rhonchi, Rub, Stridor Cardiovascular: regular rhythm, no murmurs, tachycardia. No: irregular rhythm, bradycardia, murmurs Abdomen: bowel sounds present, soft, no tenderness, no distension Extremities: no edema Skin: warm, dry, intact - Problem List Review Problem List Initiated/Reviewed/Updated: Yes - My Orders Last 24 Hours: My Active Orders 04/14/16 10:17 methylPREDNISolone Sod Succ [Solu-MEDROL] 40 mg IVPUSH Q6H 04/14/16 10:30 Sodium Chloride 0.9% @ 75 MLS/HR(1000ml) Sodium Chloride 0.9% [Normal Saline] 1 ,000 ml IV ASDIRECTED 04/15/16 05:00 BASIC METABOLIC PANEL,BMP [CHEM] Timed CBC WITH AUTO DIFF [HEME] Timed INR,PT,PROTHROMBIN TIME [COAG] Timed - Plan Plan:: ASSESSMENT / PLAN ACUTE ON CHRONIC HYPERCAPNIC AND HYPOXIC RESPIRATORY FAILURE-likely secondary to underlying infection, viral versus bacterial. -Solu-Medrol 40 mg IV q. 6 hours -Nebulizer therapy -IV fluids for hydration -Levofloxacin 500 mg IV daily -Supplemental oxygen as needed, maintain O2 sats in the range of 80-92% SEVERE COPD oxygen dependent A -Management as above ANXIETY -continue anxiety medication -Ativan IV 1 mg given in ER -Oxygen per nasal cannula LONG-TERM ORAL ANTICOAGULATION WITH WARFARIN -Continue outpatient dosing of warfarin -Recheck INR in a.m. Maintenance issues -Nutrition: Regular diet -Nunez catheter not indicated at this time -DVT: Current therapy with warfarin should provide adequate DVT prophylaxis -GI prophaxis; Prontinxix 20mg daily CODE STATUS: Full Admission status: Admit to ICU Med overflow Admission justification. This patient will be admitted for inpatient services and is medically appropriate meeting medical necessity for inpatient admission as outlined in my documentation. I reasonably expect the patient will require inpatient services that span. Time over 2 midnights. I reasonably expect this patient to be discharged or transferred within 96 hours after admission to the critical [facility]. Disposition;Senior Living resident Primary care provider: Dr. Rosario
[2016-04-14] MEDS ORDERED: Sodium Chloride 0.9% 1,000 ML IV SCH (10:30)
--- NOTE | 2016-04-14 11:31 | CR ---
Portable chest Comparison: 26 February 2016. There has been interval development of a patchy infiltrate adjacent to the left hemidiaphragm at the left lung base. The remaining lung johnosn are clear. The heart and vascular structures are stable. Impression: 1. New left basilar infiltrate. Finding is most consistent with pneumonia. Follow-up is recommended to confirm resolution.
[2016-04-14] MEDS: Polyethylene Glycol 3350 Powder 17 GM Packet PO SCH (11:45)
[2016-04-14] MEDS: methylPREDNISolone Sodium Succinate 40 MG/1 ML SDV IVPUSH SCH ×3 (11:45→22:14)
[2016-04-14] MEDS: Docusate Sodium 100 MG Cap PO SCH ×2 (11:45→20:16)
[2016-04-14] MEDS ORDERED: Warfarin 5 MG Tab PO SCH (13:00)
[2016-04-14] MEDS: LORazepam 2 MG/ML MDV IVPUSH PRN ×2 (14:19→19:53)
[2016-04-14] MEDS: rOPINIRole 1 MG Tab PO SCH (20:23)
[2016-04-15] MEDS: LORazepam 2 MG/ML MDV IVPUSH PRN ×3 (05:16→21:56)
[2016-04-15] MEDS: methylPREDNISolone Sodium Succinate 40 MG/1 ML SDV IVPUSH SCH ×4 (05:16→23:27)
[2016-04-15] MEDS: Nystatin Susp 100,000 Unit/ML 5 ML UD Cup PO SCH ×4 (05:16→21:19)
[2016-04-15] MEDS: Budesonide 0.5 MG/2 ML Neb Susp NEB SCH ×2 (07:12→21:37)
[2016-04-15] MEDS: Tiotropium Inhaler 18 MCG Inhalation Powder Cap Kit of 5 INH SCH (07:13)
[2016-04-15] MEDS: Albuterol/Ipratropium 3.0-0.5 MG/3 ML Neb Soln NEB SCH ×4 (07:13→21:37)
[2016-04-15] MEDS: Arformoterol 15 MCG/2 ML Neb Soln NEB SCH ×2 (07:14→21:54)
[2016-04-15] MEDS: Polyethylene Glycol 3350 Powder 17 GM Packet PO SCH (08:15)
[2016-04-15] MEDS: Diltiazem 180 MG Cap.CD PO SCH (08:15)
[2016-04-15] MEDS: Carvedilol 12.5 MG Tab PO SCH ×2 (08:16→17:31)
[2016-04-15] MEDS: Famotidine 20 MG Tab PO SCH (08:16)
[2016-04-15] MEDS: Docusate Sodium 100 MG Cap PO SCH (08:16)
[2016-04-15] MEDS: Aspirin 81 MG Tab.EC PO SCH (08:16)
[2016-04-15] MEDS: busPIRone 10 MG Tab PO SCH ×3 (08:16→21:29)
[2016-04-15] MEDS: Citalopram 20 MG Tab PO SCH (08:16)
[2016-04-15] MEDS: guaiFENesin 600 MG Tab.ER PO SCH ×2 (08:17→21:28)
[2016-04-15] MEDS: Morphine 15 MG Tab.ER PO SCH ×2 (11:20→23:27)
[2016-04-15] MEDS: Insulin Aspart 100 Units/ML 3 ML Pen SUBCUT SCH ×3 (12:15→21:39)
[2016-04-15] MEDS ORDERED: Warfarin 2.5 MG Tab PO SCH (13:00)
[2016-04-15] MEDS ORDERED: Warfarin 2.5 MG Tab PO ONE ×2 (13:00→16:00)
--- NOTE | 2016-04-15 15:15 | PCM.PN ---
- General Info Date of Service: 04/15/16 Functional Status: Reports: pain controlled, ambulating - Review of Systems General: Reports: weakness. Denies: fever, chills Pulmonary: Reports: shortness of breath, cough, wheezing. Denies: pleuritic chest pain, sputum, hemoptysis Cardiovascular: Reports: dyspnea on exertion. Denies: chest pain, palpitations , orthopnea, PND, edema, lightheadedness Gastrointestinal: Reports: No symptoms Systems Review Comment:: Zhane has unfortunately felt somewhat worse since yesterday with increased shortness of breath throughout the day today. She's also experiencing some nasal congestion, vital signs have been stable and she has remained afebrile. - Patient Data Vitals - most recent: Last Vital Signs Temp 98.7 F 04/15/16 14:39 Pulse 91 04/15/16 14:45 Resp 18 04/15/16 14:39 BP 125/56 L 04/15/16 14:39 Pulse Ox 95 04/15/16 14:54 Weight - most recent: 148 lb 0.011 oz I&O - last 24 hours: Intake & Output 04/15/16 04/15/16 04/15/16 06:59 14:59 22:59 Intake Total 360 200 Output Total 450 100 Balance -90 100 Lab Results last 24 hrs: Laboratory Results - last 24 hr 04/15/16 04/15/16 04/15/16 Range/Units 04:40 04:40 04:40 WBC 9.5 (4.5-11.0) K/uL RBC 3.22 L (3.30-5.50) M/uL Hgb 9.9 L (12.0-15.0) g/dL Hct 33.5 L (36.0-48.0) % MCV 104 H (80-98) fL MCH 31 (27-31) pg MCHC 30 L (32-36) % Plt Count 196 (150-400) K/uL Neut % (Auto) 88 H (36-66) % Lymph % (Auto) 6 L (24-44) % [place] % (Auto) 6 (2-6) % Eos % (Auto) 0 L (2-4) % Baso % (Auto) 0 (0-1) % PT 38.0 H (9.5-12.0) sec INR 3.45 H (0.80-1.20) Sodium 141 (140-148) mmol/L Potassium 5.2 (3.6-5.2) mmol/L Chloride 108 (100-108) mmol/L Carbon Dioxide 31 (21-32) mmol/L Anion Gap 2.4 L (5.0-14.0) mmol/L BUN 30 H (7-18) mg/dL Creatinine 1.2 H (0.6-1.0) mg/dL Est Cr Clr Drug Dosing 34.37 mL/min Estimated GFR (MDRD) 45 L (>60) Glucose 145 H (74-106) mg/dL Calcium 8.5 (8.5-10.1) mg/dL Med Orders - Current: Current Medications Albuterol (Proventil Neb Soln) 2.5 mg NEB Q4H PRN PRN Reason: Shortness Of Breath/wheezing Albuterol/Ipratropium (Duoneb 3.0-0.5 Mg/3 Ml) 3 ml NEB QIDRT [facility] Last Admin: 04/15/16 14:44 Dose: 3 ml Alprazolam (Xanax) 0.25 mg PO BID PRN PRN Reason: panic attack Last Admin: 04/14/16 00:38 Dose: 0.25 mg Arformoterol Tartrate (Brovana) 15 mcg NEB BIDRT [facility] Last Admin: 04/15/16 07:14 Dose: 15 mcg Aspirin (Halfprin) 81 mg PO DAILY [facility] Last Admin: 04/15/16 08:16 Dose: 81 mg Bisacodyl (Dulcolax) 5 mg PO DAILY PRN PRN Reason: Constipation Budesonide (Pulmicort) 0.5 mg NEB BIDRT [facility] Last Admin: 04/15/16 07:12 Dose: 0.5 mg Buspirone HCl (Buspar) 20 mg PO TID [facility] Last Admin: 04/15/16 14:09 Dose: 20 mg Carvedilol (Coreg) 12.5 mg PO BIDMEALS [facility] Last Admin: 04/15/16 08:16 Dose: 12.5 mg Citalopram Hydrobromide (Celexa) 20 mg PO DAILY [facility] Last Admin: 04/15/16 08:16 Dose: 20 mg Diltiazem HCl (Cardizem Cd) 180 mg PO DAILY [facility] Last Admin: 04/15/16 08:15 Dose: 180 mg Docusate Sodium (Colace) 100 mg PO BID PRN PRN Reason: Constipation Famotidine (Pepcid) 20 mg PO DAILY [facility] Last Admin: 04/15/16 08:16 Dose: 20 mg Guaifenesin (Mucinex) 600 mg PO BID [facility] Last Admin: 04/15/16 08:17 Dose: 600 mg Levofloxacin/Dextrose 500 mg/ (Premix) 100 mls @ 100 mls/hr IV Q24H [facility] Last Admin: 04/14/16 22:15 Dose: 100 mls/hr Insulin Aspart (Novolog) 0 unit SUBCUT ASDIRECTED [facility] PRN Reason: Protocol Last Admin: 04/15/16 12:15 Dose: 2 units Lorazepam (Ativan) 1 mg IVPUSH Q2H PRN PRN Reason: Anxiety Last Admin: 04/15/16 11:35 Dose: 1 mg Methylprednisolone Sodium Succinate (Solu-Medrol) 40 mg IVPUSH Q6H [facility] Last Admin: 04/15/16 10:58 Dose: 40 mg Mirtazapine (Remeron) 22.5 mg PO BEDTIME [facility] Last Admin: 04/14/16 20:21 Dose: 22.5 mg Morphine Sulfate (Ms Contin) 15 mg PO Q12H [facility] Stop: 04/18/16 23:59 Last Admin: 04/15/16 11:20 Dose: 15 mg Nitroglycerin (Nitrostat) 0.4 mg SL DAILY PRN PRN Reason: Chest Pain Nystatin (Mycostatin) 5 ml PO QID [facility] Last Admin: 04/15/16 10:56 Dose: Not Given Ondansetron HCl (Zofran) 4 mg IV Q4H PRN PRN Reason: Nausea/Vomiting Oxycodone HCl (Oxycodone) 10 mg PO BID PRN PRN Reason: Pain Polyethylene Glycol (Miralax) 17 gm PO DAILY [facility] Last Admin: 04/15/16 08:15 Dose: 17 gm Ropinirole HCl (Requip) 1 mg PO BEDTIME [facility] Last Admin: 04/14/16 20:23 Dose: 1 mg Senna/Docusate Sodium (Senna Plus) 1 tab PO BID [facility] Last Admin: 04/15/16 08:15 Dose: 1 tab Tiotropium [place] (Spiriva Handihaler) 18 mcg INH DAILYRT [facility] Last Admin: 04/15/16 07:13 Dose: 18 mcg Triamcinolone Acetonide (Triamcinolone Acetonide 0.1% Crm) 0 gm TOP DAILY PRN PRN Reason: Rash Zolpidem Tartrate (Ambien) 5 mg PO BEDTIME PRN PRN Reason: Sleep Discontinued Medications Albuterol/Ipratropium (Duoneb 3.0-0.5 Mg/3 Ml) 3 ml NEB QID PRN PRN Reason: Shortness Of Breath/wheezing Last Admin: 04/14/16 19:20 Dose: 3 ml Docusate Sodium (Colace) 100 mg PO BID [facility] Last Admin: 04/15/16 08:16 Dose: 100 mg Sodium Chloride (Normal Saline) 1,000 mls @ 75 mls/hr IV ASDIRECTED [facility] Lorazepam (Ativan) 1 mg IVPUSH ONETIME ONE Stop: 04/13/16 22:03 Last Admin: 04/13/16 22:19 Dose: 1 mg Lorazepam (Ativan) 2 mg IVPUSH ONETIME ONE Stop: 04/14/16 02:09 Last Admin: 04/14/16 02:08 Dose: 2 mg Methylprednisolone Sodium Succinate (Solu-Medrol) 125 mg IVPUSH Q6H [facility] Last Admin: 04/14/16 05:31 Dose: 125 mg Potassium Chloride (Klor-Con M20) 20 meq PO BID [facility] Last Admin: 04/14/16 08:15 Dose: 20 meq Warfarin Sodium (Coumadin) 5 mg PO [id number]@1300 [facility] Last Admin: 04/14/16 13:46 Dose: 5 mg Warfarin Sodium (Coumadin) 7.5 mg PO SuTuWeThSa@1300 [facility] Warfarin Sodium (Coumadin) 2.5 mg PO ONETIME ONE Stop: 04/15/16 13:01 Last Admin: 04/15/16 13:31 Dose: Not Given - Exam Quality Assessment: supplemental oxygen, DVT prophylaxis General: alert, oriented, cooperative, moderate distress Lungs: Decreased breath sounds, Wheezing. No: Rales, Rhonchi, Rub, Stridor Cardiovascular: regular rate, regular rhythm, no murmurs Abdomen: bowel sounds present, soft, no tenderness, no distension Extremities: no edema Skin: warm, dry, intact - Problem List Review Problem List Initiated/Reviewed/Updated: Yes - My Orders Last 24 Hours: My Active Orders 04/15/16 09:02 Vital Signs [RC] Q2H Convert IV to Saline Lock [OM.PC] Routine 04/15/16 15:11 Warfarin [Coumadin] 2.5 mg PO ONETIME ONE 04/15/16 16:30 GLUCOSE POC LAB TO COLLECT [POC] QIDACANDBED 04/15/16 21:00 GLUCOSE POC LAB TO COLLECT [POC] QIDACANDBED 04/16/16 05:00 BASIC METABOLIC PANEL,BMP [CHEM] Timed CBC WITH AUTO DIFF [HEME] Timed INR,PT,PROTHROMBIN TIME [COAG] Routine INR,PT,PROTHROMBIN TIME [COAG] Timed MAGNESIUM [CHEM] Timed 04/16/16 07:30 GLUCOSE POC LAB TO COLLECT [POC] QIDACANDBED 04/16/16 11:30 GLUCOSE POC LAB TO COLLECT [POC] QIDACANDBED 04/16/16 16:30 GLUCOSE POC LAB TO COLLECT [POC] QIDACANDBED 04/16/16 21:00 GLUCOSE POC LAB TO COLLECT [POC] QIDACANDBED 04/17/16 07:30 GLUCOSE POC LAB TO COLLECT [POC] QIDACANDBED 04/17/16 11:30 GLUCOSE POC LAB TO COLLECT [POC] QIDACANDBED 04/17/16 16:30 GLUCOSE POC LAB TO COLLECT [POC] QIDACANDBED 04/17/16 21:00 GLUCOSE POC LAB TO COLLECT [POC] QIDACANDBED 04/18/16 07:30 GLUCOSE POC LAB TO COLLECT [POC] QIDACANDBED 04/18/16 11:30 GLUCOSE POC LAB TO COLLECT [POC] QIDACANDBED 04/18/16 16:30 GLUCOSE POC LAB TO COLLECT [POC] QIDACANDBED 04/18/16 21:00 GLUCOSE POC LAB TO COLLECT [POC] QIDACANDBED 04/19/16 07:30 GLUCOSE POC LAB TO COLLECT [POC] QIDACANDBED 04/19/16 11:30 GLUCOSE POC LAB TO COLLECT [POC] QIDACANDBED 04/19/16 16:30 GLUCOSE POC LAB TO COLLECT [POC] QIDACANDBED 04/19/16 21:00 GLUCOSE POC LAB TO COLLECT [POC] QIDACANDBED - Plan Plan:: ASSESSMENT / PLAN ACUTE ON CHRONIC HYPERCAPNIC AND HYPOXIC RESPIRATORY FAILURE-likely secondary to underlying infection, viral versus bacterial. Shortness of breath is worse today when compared to yesterday -Solu-Medrol 40 mg IV q. 6 hours -Nebulizer therapy -Saline lock IV -Levofloxacin 500 mg IV daily -Supplemental oxygen as needed, maintain O2 sats in the range of 80-92% SEVERE COPD -Management as above ANXIETY -continue anxiety medication -Ativan IV 1 mg given in ER -Oxygen per nasal cannula LONG-TERM ORAL ANTICOAGULATION WITH WARFARIN-INR today is supratherapeutic -Warfarin 2.5 mg by mouth today -Recheck INR in a.m. Maintenance issues -Nutrition: Regular diet -Nunez catheter not indicated at this time -DVT: Current therapy with warfarin should provide adequate DVT prophylaxis -GI prophaxis; Prontinxix 20mg daily CODE STATUS: Full Admission status: Admit to ICU Med overflow Admission justification. This patient will be admitted for inpatient services and is medically appropriate meeting medical necessity for inpatient admission as outlined in my documentation. I reasonably expect the patient will require inpatient services that span. Time over 2 midnights. I reasonably expect this patient to be discharged or transferred within 96 hours after admission to the critical access hospital. Disposition;[facility] resident Primary care provider: Dr. Rosario
[2016-04-15] MEDS: Docusate Sodium 100 MG Cap PO PRN (16:05)
[2016-04-15] MEDS: Mometasone Furoate Nasal Spray 17 GM Canister NAS SCH ×2 (16:07→21:24)
[2016-04-15] MEDS: Oxymetazoline 0.05% Nasal Spray 15 ML Bottle NAS SCH ×2 (16:07→21:24)
[2016-04-15] MEDS: ALPRAZolam 0.25 MG Tab PO PRN (17:59)
[2016-04-15] MEDS: Mirtazapine 15 MG Tab PO SCH (21:31)
[2016-04-15] MEDS: rOPINIRole 1 MG Tab PO SCH (21:33)
[2016-04-15] MEDS: Levofloxacin/Dextrose 5%-Water 500 MG in Premix Bag 1 BAG IV SCH (23:28)
[2016-04-16] MEDS: methylPREDNISolone Sodium Succinate 40 MG/1 ML SDV IVPUSH SCH ×4 (04:59→22:19)
[2016-04-16] MEDS: Nystatin Susp 100,000 Unit/ML 5 ML UD Cup PO SCH ×4 (06:06→22:21)
[2016-04-16] MEDS: Carvedilol 12.5 MG Tab PO SCH ×2 (07:35→18:02)
[2016-04-16] MEDS: Albuterol/Ipratropium 3.0-0.5 MG/3 ML Neb Soln NEB SCH ×4 (07:40→22:07)
[2016-04-16] MEDS: Budesonide 0.5 MG/2 ML Neb Susp NEB SCH ×2 (07:40→22:07)
[2016-04-16] MEDS: Tiotropium Inhaler 18 MCG Inhalation Powder Cap Kit of 5 INH SCH (07:41)
[2016-04-16] MEDS: Arformoterol 15 MCG/2 ML Neb Soln NEB SCH ×2 (07:41→22:15)
[2016-04-16] MEDS: LORazepam 2 MG/ML MDV IVPUSH PRN (07:43)
[2016-04-16] MEDS ORDERED: Insulin Aspart 100 Units/ML 3 ML Pen SUBCUT ONE (08:00)
[2016-04-16] MEDS: busPIRone 10 MG Tab PO SCH ×3 (08:21→22:18)
[2016-04-16] MEDS: Aspirin 81 MG Tab.EC PO SCH (08:21)
[2016-04-16] MEDS: Citalopram 20 MG Tab PO SCH (08:22)
[2016-04-16] MEDS: Famotidine 20 MG Tab PO SCH (08:22)
[2016-04-16] MEDS: Diltiazem 180 MG Cap.CD PO SCH (08:22)
[2016-04-16] MEDS: guaiFENesin 600 MG Tab.ER PO SCH ×2 (08:22→22:18)
[2016-04-16] MEDS: Mometasone Furoate Nasal Spray 17 GM Canister NAS SCH ×2 (08:23→22:16)
[2016-04-16] MEDS: Polyethylene Glycol 3350 Powder 17 GM Packet PO SCH (08:24)
[2016-04-16] MEDS: Oxymetazoline 0.05% Nasal Spray 15 ML Bottle NAS SCH ×2 (08:24→22:16)
[2016-04-16] MEDS ORDERED: Sodium Phosphate,Monobasic/Sodium Phosphate,Dibasic Enema 133 ML Bottle RECTAL ONE (08:46)
[2016-04-16] MEDS: Morphine 15 MG Tab.ER PO SCH ×2 (12:00→22:19)
[2016-04-16] MEDS: Insulin Aspart 100 Units/ML 3 ML Pen SUBCUT SCH ×2 (12:18→22:15)
--- NOTE | 2016-04-16 15:22 | PCM.PN ---
- General Info Date of Service: 04/16/16 Functional Status: Reports: tolerating diet, ambulating, urinating - Review of Systems General: Reports: weakness. Denies: fever, chills Pulmonary: Reports: shortness of breath, wheezing. Denies: pleuritic chest pain , cough, sputum, hemoptysis Cardiovascular: Reports: dyspnea on exertion. Denies: chest pain, palpitations , orthopnea, PND, edema, lightheadedness Gastrointestinal: Reports: No symptoms Systems Review Comment:: Zhane continues to experience difficulty with shortness of breath and wheezing, no significant improvement from admission. Vital signs have been stable and she has remained afebrile. - Patient Data Vitals - most recent: Last Vital Signs Temp 97.6 F 04/16/16 15:00 Pulse 80 04/16/16 15:00 Resp 16 04/16/16 15:00 BP 142/84 H 04/16/16 15:00 Pulse Ox 97 04/16/16 15:00 Weight - most recent: 148 lb 0.011 oz I&O - last 24 hours: Intake & Output 04/16/16 04/16/16 04/16/16 06:59 14:59 22:59 Intake Total 600 480 600 Output Total 1025 500 200 Balance -425 -20 400 Lab Results last 24 hrs: Laboratory Results - last 24 hr 04/16/16 04/16/16 04/16/16 Range/Units 05:00 05:00 05:00 WBC 13.1 H (4.5-11.0) K/uL RBC 3.31 (3.30-5.50) M/uL Hgb 10.4 L (12.0-15.0) g/dL Hct 34.5 L (36.0-48.0) % MCV 104 H (80-98) fL MCH 31 (27-31) pg MCHC 30 L (32-36) % Plt Count 230 (150-400) K/uL Neut % (Auto) 92 H (36-66) % Lymph % (Auto) 3 L (24-44) % [place] % (Auto) 5 (2-6) % Eos % (Auto) 0 L (2-4) % Baso % (Auto) 0 (0-1) % PT 29.8 H (9.5-12.0) sec INR 2.73 H (0.80-1.20) Sodium 141 (140-148) mmol/L Potassium 5.0 (3.6-5.2) mmol/L Chloride 107 (100-108) mmol/L Carbon Dioxide 31 (21-32) mmol/L Anion Gap 3.1 L (5.0-14.0) mmol/L BUN 35 H (7-18) mg/dL Creatinine 1.3 H (0.6-1.0) mg/dL Est Cr Clr Drug Dosing 31.72 mL/min Estimated GFR (MDRD) 41 L (>60) Glucose 150 H (74-106) mg/dL Calcium 8.9 (8.5-10.1) mg/dL Magnesium 2.2 (1.8-2.4) mg/dL Med Orders - Current: Current Medications Albuterol (Proventil Neb Soln) 2.5 mg NEB Q4H PRN PRN Reason: Shortness Of Breath/wheezing Albuterol/Ipratropium (Duoneb 3.0-0.5 Mg/3 Ml) 3 ml NEB QIDRT [facility] Last Admin: 04/16/16 14:40 Dose: 3 ml Alprazolam (Xanax) 0.25 mg PO BID PRN PRN Reason: panic attack Last Admin: 04/15/16 17:59 Dose: 0.25 mg Arformoterol Tartrate (Brovana) 15 mcg NEB BIDRT [facility] Last Admin: 04/16/16 07:41 Dose: 15 mcg Aspirin (Halfprin) 81 mg PO DAILY [facility] Last Admin: 04/16/16 08:21 Dose: 81 mg Bisacodyl (Dulcolax) 5 mg PO DAILY PRN PRN Reason: Constipation Last Admin: 04/16/16 08:26 Dose: 5 mg Budesonide (Pulmicort) 0.5 mg NEB BIDRT [facility] Last Admin: 04/16/16 07:40 Dose: 0.5 mg Buspirone HCl (Buspar) 20 mg PO TID [facility] Last Admin: 04/16/16 15:06 Dose: 20 mg Carvedilol (Coreg) 12.5 mg PO BIDMEALS [facility] Last Admin: 04/16/16 07:35 Dose: 12.5 mg Citalopram Hydrobromide (Celexa) 20 mg PO DAILY [facility] Last Admin: 04/16/16 08:22 Dose: 20 mg Diltiazem HCl (Cardizem Cd) 180 mg PO DAILY [facility] Last Admin: 04/16/16 08:22 Dose: 180 mg Docusate Sodium (Colace) 100 mg PO BID PRN PRN Reason: Constipation Last Admin: 04/15/16 16:05 Dose: 100 mg Famotidine (Pepcid) 20 mg PO DAILY [facility] Last Admin: 04/16/16 08:22 Dose: 20 mg Guaifenesin (Mucinex) 600 mg PO BID [facility] Last Admin: 04/16/16 08:22 Dose: 600 mg Doxycycline Hyclate 100 mg/ (Sodium Chloride) 100 mls @ 100 mls/hr IV Q12HR [facility] Sodium Chloride (Normal Saline) 1,000 mls @ 50 mls/hr IV ASDIRECTED [facility] Insulin Aspart (Novolog) 0 unit SUBCUT ASDIRECTED [facility] PRN Reason: Protocol Last Admin: 04/16/16 12:18 Dose: 2 units Lorazepam (Ativan) 1 mg IVPUSH Q2H PRN PRN Reason: Anxiety Last Admin: 04/16/16 07:43 Dose: 1 mg Methylprednisolone Sodium Succinate (Solu-Medrol) 40 mg IVPUSH Q6H [facility] Last Admin: 04/16/16 12:00 Dose: 40 mg Mirtazapine (Remeron) 22.5 mg PO BEDTIME [facility] Last Admin: 04/15/16 21:31 Dose: 22.5 mg Mometasone Furoate (Nasonex [place]) 0 gm ADRIANNA BID [facility] Last Admin: 04/16/16 08:23 Dose: 1 spr Morphine Sulfate (Ms Contin) 15 mg PO Q12H [facility] Stop: 04/18/16 23:59 Last Admin: 04/16/16 12:00 Dose: 15 mg Nitroglycerin (Nitrostat) 0.4 mg SL DAILY PRN PRN Reason: Chest Pain Nystatin (Mycostatin) 5 ml PO QID [facility] Last Admin: 04/16/16 15:07 Dose: Not Given Ondansetron HCl (Zofran) 4 mg IV Q4H PRN PRN Reason: Nausea/Vomiting Oxycodone HCl (Oxycodone) 10 mg PO BID PRN PRN Reason: Pain Oxymetazoline HCl (Afrin Original 0.05% Nasal [place]) 0 ml ADRIANNA BID [facility] Last Admin: 04/16/16 08:24 Dose: 1 spray Polyethylene Glycol (Miralax) 17 gm PO DAILY [facility] Last Admin: 04/16/16 08:24 Dose: 17 gm Ropinirole HCl (Requip) 1 mg PO BEDTIME [facility] Last Admin: 04/15/16 21:33 Dose: 1 mg Senna/Docusate Sodium (Senna Plus) 1 tab PO BID [facility] Last Admin: 04/16/16 08:21 Dose: 1 tab Tiotropium [place] (Spiriva Handihaler) 18 mcg INH DAILYRT [facility] Last Admin: 04/16/16 07:41 Dose: 18 mcg Triamcinolone Acetonide (Triamcinolone Acetonide 0.1% Crm) 0 gm TOP DAILY PRN PRN Reason: Rash Last Admin: 04/15/16 21:35 Dose: 1 applic Warfarin Sodium (Coumadin) 5 mg PO ONETIME ONE Stop: 04/16/16 15:19 Zolpidem Tartrate (Ambien) 5 mg PO BEDTIME PRN PRN Reason: Sleep Discontinued Medications Albuterol/Ipratropium (Duoneb 3.0-0.5 Mg/3 Ml) 3 ml NEB QID PRN PRN Reason: Shortness Of Breath/wheezing Last Admin: 04/14/16 19:20 Dose: 3 ml Docusate Sodium (Colace) 100 mg PO BID [facility] Last Admin: 04/15/16 08:16 Dose: 100 mg Levofloxacin/Dextrose 500 mg/ (Premix) 100 mls @ 100 mls/hr IV Q24H [facility] Last Admin: 04/15/16 23:28 Dose: 100 mls/hr Sodium Chloride (Normal Saline) 1,000 mls @ 75 mls/hr IV ASDIRECTED [facility] Insulin Aspart (Novolog) 6 unit SUBCUT ONETIME ONE Stop: 04/16/16 08:01 Last Admin: 04/16/16 08:13 Dose: 6 units Lorazepam (Ativan) 1 mg IVPUSH ONETIME ONE Stop: 04/13/16 22:03 Last Admin: 04/13/16 22:19 Dose: 1 mg Lorazepam (Ativan) 2 mg IVPUSH ONETIME ONE Stop: 04/14/16 02:09 Last Admin: 04/14/16 02:08 Dose: 2 mg Methylprednisolone Sodium Succinate (Solu-Medrol) 125 mg IVPUSH Q6H [facility] Last Admin: 04/14/16 05:31 Dose: 125 mg Potassium Chloride (Klor-Con M20) 20 meq PO BID [facility] Last Admin: 04/14/16 08:15 Dose: 20 meq Sodium Biphosphate/Sodium Phosphate (Fleet Enema) 133 ml RECTAL ONETIME ONE Stop: 04/16/16 08:47 Last Admin: 04/16/16 10:23 Dose: 133 ml Warfarin Sodium (Coumadin) 5 mg PO MoFr@1300 [facility] Last Admin: 04/14/16 13:46 Dose: 5 mg Warfarin Sodium (Coumadin) 7.5 mg PO SuTuWeThSa@1300 [facility] Warfarin Sodium (Coumadin) 2.5 mg PO ONETIME ONE Stop: 04/15/16 13:01 Last Admin: 04/15/16 13:31 Dose: Not Given Warfarin Sodium (Coumadin) 2.5 mg PO ONETIME ONE Stop: 04/15/16 16:01 Last Admin: 04/15/16 16:05 Dose: 2.5 mg - Exam Quality Assessment: supplemental oxygen, DVT prophylaxis General: alert, oriented, cooperative, mild distress Lungs: Decreased breath sounds, Wheezing. No: Crackles, Rales, Rhonchi, Rub, Stridor Cardiovascular: regular rate, regular rhythm, no murmurs Abdomen: bowel sounds present, soft, no tenderness, no distension Extremities: no edema Skin: warm, dry, intact - Problem List Review Problem List Initiated/Reviewed/Updated: Yes - My Orders Last 24 Hours: My Active Orders 04/15/16 15:15 Mometasone Furoate [Nasonex [place]] See Dose Instructions ADRIANNA BID Oxymetazoline [Afrin Original 0.05% Nasal [place]] See Dose Instructions ADRIANNA BID 04/16/16 15:18 Warfarin [Coumadin] 5 mg PO ONETIME ONE 04/16/16 15:30 Doxycycline [Vibramycin] 100 mg Sodium Chloride 0.9% [Normal Saline] 100 ml IV Q12HR Sodium Chloride 0.9% @ 50 MLS/HR(1000ml) Sodium Chloride 0.9% [Normal Saline] 1 ,000 ml IV ASDIRECTED 04/16/16 16:30 GLUCOSE POC LAB TO COLLECT [POC] QIDACANDBED 04/16/16 21:00 GLUCOSE POC LAB TO COLLECT [POC] QIDACANDBED 04/17/16 05:00 BASIC METABOLIC PANEL,BMP [CHEM] Timed 04/17/16 05:11 INR,PT,PROTHROMBIN TIME [COAG] AM 04/17/16 07:30 GLUCOSE POC LAB TO COLLECT [POC] QIDACANDBED 04/17/16 11:30 GLUCOSE POC LAB TO COLLECT [POC] QIDACANDBED 04/17/16 16:30 GLUCOSE POC LAB TO COLLECT [POC] QIDACANDBED 04/17/16 21:00 GLUCOSE POC LAB TO COLLECT [POC] QIDACANDBED 04/18/16 07:30 GLUCOSE POC LAB TO COLLECT [POC] QIDACANDBED 04/18/16 11:30 GLUCOSE POC LAB TO COLLECT [POC] QIDACANDBED 04/18/16 16:30 GLUCOSE POC LAB TO COLLECT [POC] QIDACANDBED 04/18/16 21:00 GLUCOSE POC LAB TO COLLECT [POC] QIDACANDBED 04/19/16 07:30 GLUCOSE POC LAB TO COLLECT [POC] QIDACANDBED 04/19/16 11:30 GLUCOSE POC LAB TO COLLECT [POC] QIDACANDBED 04/19/16 16:30 GLUCOSE POC LAB TO COLLECT [POC] QIDACANDBED 04/19/16 21:00 GLUCOSE POC LAB TO COLLECT [POC] QIDACANDBED - Plan Plan:: ASSESSMENT / PLAN ACUTE ON CHRONIC HYPERCAPNIC AND HYPOXIC RESPIRATORY FAILURE-likely secondary to underlying infection, viral versus bacterial. Persistent symptoms of shortness of breath and bilateral expiratory wheezes on examination -Solu-Medrol 40 mg IV q. 6 hours -Nebulizer therapy -Saline lock IV -Doxycycline 100 mg IV every 12 hours -Normal saline 50 mL per hour -Supplemental oxygen as needed, maintain O2 sats in the range of 80-92% SEVERE COPD -Management as above ANXIETY -continue anxiety medication -Ativan IV 1 mg given in ER -Oxygen per nasal cannula LONG-TERM ORAL ANTICOAGULATION WITH WARFARIN-INR today is supratherapeutic -Warfarin 5 mg by mouth today -Recheck INR in a.m. Maintenance issues -Nutrition: Regular diet -Nunez catheter not indicated at this time -DVT: Current therapy with warfarin should provide adequate DVT prophylaxis -GI prophaxis; Prontinxix 20mg daily CODE STATUS: Full Admission status: Admit to ICU Med overflow Admission justification. This patient will be admitted for inpatient services and is medically appropriate meeting medical necessity for inpatient admission as outlined in my documentation. I reasonably expect the patient will require inpatient services that span. Time over 2 midnights. I reasonably expect this patient to be discharged or transferred within 96 hours after admission to the critical [facility]. Disposition;[facility] resident Primary care provider: Dr. Rosario
[2016-04-16] MEDS ORDERED: Sodium Chloride 0.9% 1,000 ML IV SCH (15:30)
[2016-04-16] MEDS: ALPRAZolam 0.25 MG Tab PO PRN ×2 (15:59→22:35)
[2016-04-16] MEDS ORDERED: Warfarin 5 MG Tab PO ONE (16:00)
[2016-04-16] MEDS: Doxycycline 100 MG in Sodium Chloride 0.9% 100 ML IV SCH (16:02)
[2016-04-16] MEDS: Mirtazapine 15 MG Tab PO SCH (22:18)
[2016-04-16] MEDS: rOPINIRole 1 MG Tab PO SCH (22:19)
[2016-04-16] MEDS: Docusate Sodium 100 MG Cap PO PRN (22:29)
[2016-04-17] MEDS: Doxycycline 100 MG in Sodium Chloride 0.9% 100 ML IV SCH ×2 (04:15→16:42)
[2016-04-17] MEDS: methylPREDNISolone Sodium Succinate 40 MG/1 ML SDV IVPUSH SCH ×3 (04:15→16:44)
[2016-04-17] MEDS: Nystatin Susp 100,000 Unit/ML 5 ML UD Cup PO SCH ×4 (07:08→21:20)
[2016-04-17] MEDS: Budesonide 0.5 MG/2 ML Neb Susp NEB SCH ×2 (07:18→21:20)
[2016-04-17] MEDS: Albuterol/Ipratropium 3.0-0.5 MG/3 ML Neb Soln NEB SCH ×2 (07:18→10:37)
[2016-04-17] MEDS: Arformoterol 15 MCG/2 ML Neb Soln NEB SCH (07:35)
[2016-04-17] MEDS: Tiotropium Inhaler 18 MCG Inhalation Powder Cap Kit of 5 INH SCH (07:36)
[2016-04-17] MEDS: LORazepam 2 MG/ML MDV IVPUSH PRN (08:01)
[2016-04-17] MEDS: Oxymetazoline 0.05% Nasal Spray 15 ML Bottle NAS SCH ×2 (08:04→21:18)
[2016-04-17] MEDS: Mometasone Furoate Nasal Spray 17 GM Canister NAS SCH ×2 (08:05→21:19)
[2016-04-17] MEDS: Citalopram 20 MG Tab PO SCH (08:06)
[2016-04-17] MEDS: busPIRone 10 MG Tab PO SCH ×3 (08:06→21:19)
[2016-04-17] MEDS: Carvedilol 12.5 MG Tab PO SCH ×2 (08:06→16:44)
[2016-04-17] MEDS: Aspirin 81 MG Tab.EC PO SCH (08:06)
[2016-04-17] MEDS: Famotidine 20 MG Tab PO SCH (08:06)
[2016-04-17] MEDS: guaiFENesin 600 MG Tab.ER PO SCH ×2 (08:06→21:19)
[2016-04-17] MEDS: Diltiazem 180 MG Cap.CD PO SCH (08:07)
[2016-04-17] MEDS: Polyethylene Glycol 3350 Powder 17 GM Packet PO SCH (08:08)
[2016-04-17] MEDS: Docusate Sodium 100 MG Cap PO PRN (08:14)
[2016-04-17] MEDS: Morphine 15 MG Tab.ER PO SCH (11:54)
[2016-04-17] MEDS: Insulin Aspart 100 Units/ML 3 ML Pen SUBCUT SCH ×3 (12:07→21:20)
--- NOTE | 2016-04-17 12:28 | PCM.PN ---
- General Info Date of Service: 04/17/16 Functional Status: Reports: tolerating diet, ambulating, urinating - Review of Systems General: Reports: weakness. Denies: fever, chills Pulmonary: Reports: shortness of breath, cough, wheezing. Denies: pleuritic chest pain, sputum, hemoptysis Cardiovascular: Reports: dyspnea on exertion, edema. Denies: chest pain, palpitations, orthopnea, PND, lightheadedness Gastrointestinal: Reports: No symptoms Systems Review Comment:: Zhane has done well over the past 24 hours, finally has noted some mild improvement in her shortness of breath and cough. Vital signs have been stable and she has remained afebrile. - Patient Data Vitals - most recent: Last Vital Signs Temp 97.6 F 04/17/16 07:00 Pulse 85 04/17/16 10:37 Resp 20 04/17/16 07:00 BP 152/58 H 04/17/16 08:06 Pulse Ox 92 L 04/17/16 10:37 Weight - most recent: 148 lb 0.011 oz I&O - last 24 hours: Intake & Output 04/16/16 04/17/16 04/17/16 22:59 06:59 14:59 Intake Total 940 1412 480 Output Total 950 700 Balance -10 712 480 Lab Results last 24 hrs: Laboratory Results - last 24 hr 04/17/16 04/17/16 Range/Units 04:00 05:11 PT 23.5 H (9.5-12.0) sec INR 2.16 H (0.80-1.20) Sodium 146 (140-148) mmol/L Potassium 4.7 (3.6-5.2) mmol/L Chloride 107 (100-108) mmol/L Carbon Dioxide 33 H (21-32) mmol/L Anion Gap 10.7 (5.0-14.0) mmol/L BUN 33 H (7-18) mg/dL Creatinine 1.2 H (0.6-1.0) mg/dL Est Cr Clr Drug Dosing 34.37 mL/min Estimated GFR (MDRD) 45 L (>60) Glucose 164 H (74-106) mg/dL Calcium 8.4 L (8.5-10.1) mg/dL Med Orders - Current: Current Medications Albuterol (Proventil Neb Soln) 2.5 mg NEB Q4H PRN PRN Reason: Shortness Of Breath/wheezing Albuterol/Ipratropium (Duoneb 3.0-0.5 Mg/3 Ml) 3 ml NEB QIDRT PRN PRN Reason: Dyspnea Alprazolam (Xanax) 0.25 mg PO BID PRN PRN Reason: panic attack Last Admin: 04/16/16 22:35 Dose: 0.25 mg Aspirin (Halfprin) 81 mg PO DAILY [facility] Last Admin: 04/17/16 08:06 Dose: 81 mg Bisacodyl (Dulcolax) 5 mg PO DAILY PRN PRN Reason: Constipation Last Admin: 04/16/16 08:26 Dose: 5 mg Budesonide (Pulmicort) 0.5 mg NEB BIDRT [facility] Last Admin: 04/17/16 07:18 Dose: 0.5 mg Bumetanide (Bumex) 1 mg PO BID [facility] Buspirone HCl (Buspar) 20 mg PO TID [facility] Last Admin: 04/17/16 08:06 Dose: 20 mg Calcitonin [place] (Miacalcin Nasal [place]) ml ADRIANNA DAILY [facility] Carvedilol (Coreg) 12.5 mg PO BIDMEALS [facility] Last Admin: 04/17/16 08:06 Dose: 12.5 mg Citalopram Hydrobromide (Celexa) 20 mg PO DAILY [facility] Last Admin: 04/17/16 08:06 Dose: 20 mg Diltiazem HCl (Cardizem Cd) 180 mg PO DAILY [facility] Last Admin: 04/17/16 08:07 Dose: 180 mg Docusate Sodium (Colace) 100 mg PO BID PRN PRN Reason: Constipation Last Admin: 04/17/16 08:14 Dose: 100 mg Famotidine (Pepcid) 20 mg PO DAILY [facility] Last Admin: 04/17/16 08:06 Dose: 20 mg Guaifenesin (Mucinex) 600 mg PO BID [facility] Last Admin: 04/17/16 08:06 Dose: 600 mg Doxycycline Hyclate 100 mg/ (Sodium Chloride) 100 mls @ 100 mls/hr IV Q12H [facility] Last Admin: 04/17/16 04:15 Dose: 100 mls/hr Insulin Aspart (Novolog) 0 unit SUBCUT ASDIRECTED [facility] PRN Reason: Protocol Last Admin: 04/17/16 12:07 Dose: 3 units Lorazepam (Ativan) 1 mg IVPUSH Q2H PRN PRN Reason: Anxiety Last Admin: 04/17/16 08:01 Dose: 1 mg Methylprednisolone Sodium Succinate (Solu-Medrol) 40 mg IVPUSH Q6H [facility] Last Admin: 04/17/16 11:55 Dose: 40 mg Mirtazapine (Remeron) 22.5 mg PO BEDTIME [facility] Last Admin: 04/16/16 22:18 Dose: 22.5 mg Mometasone Furoate (Nasonex [place]) 0 gm ADRIANNA BID [facility] Last Admin: 04/17/16 08:05 Dose: 1 spr Morphine Sulfate (Ms Contin) 15 mg PO Q12H [facility] Stop: 04/18/16 23:59 Last Admin: 04/17/16 11:54 Dose: 15 mg Nitroglycerin (Nitrostat) 0.4 mg SL DAILY PRN PRN Reason: Chest Pain Non-Formulary Medication (L.Acidoph,Paracasei, B.Lactis [Probiotic]) 2 each PO DAILY [facility] Nystatin (Mycostatin) 5 ml PO QID [facility] Last Admin: 04/17/16 11:21 Dose: Not Given Ondansetron HCl (Zofran) 4 mg IV Q4H PRN PRN Reason: Nausea/Vomiting Oxycodone HCl (Oxycodone) 10 mg PO BID PRN PRN Reason: Pain Oxymetazoline HCl (Afrin Original 0.05% Nasal [place]) 0 ml ADRIANNA BID [facility] Last Admin: 04/17/16 08:04 Dose: 1 spray Polyethylene Glycol (Miralax) 17 gm PO DAILY [facility] Last Admin: 04/17/16 08:08 Dose: 17 gm Ropinirole HCl (Requip) 1 mg PO BEDTIME [facility] Last Admin: 04/16/16 22:19 Dose: 1 mg Senna/Docusate Sodium (Senna Plus) 1 tab PO BID [facility] Last Admin: 04/17/16 08:06 Dose: 1 tab Tiotropium [place] (Spiriva Handihaler) 18 mcg INH DAILYRT [facility] Last Admin: 04/17/16 07:36 Dose: 18 mcg Triamcinolone Acetonide (Triamcinolone Acetonide 0.1% Crm) 0 gm TOP DAILY PRN PRN Reason: Rash Last Admin: 04/15/16 21:35 Dose: 1 applic Warfarin Sodium (Coumadin) 7.5 mg PO ONETIME ONE Stop: 04/17/16 12:25 Zolpidem Tartrate (Ambien) 5 mg PO BEDTIME PRN PRN Reason: Sleep Discontinued Medications Albuterol/Ipratropium (Duoneb 3.0-0.5 Mg/3 Ml) 3 ml NEB QID PRN PRN Reason: Shortness Of Breath/wheezing Last Admin: 04/14/16 19:20 Dose: 3 ml Albuterol/Ipratropium (Duoneb 3.0-0.5 Mg/3 Ml) 3 ml NEB QIDRT [facility] Last Admin: 04/17/16 10:37 Dose: 3 ml Arformoterol Tartrate (Brovana) 15 mcg NEB BIDRT [facility] Last Admin: 04/17/16 07:35 Dose: 15 mcg Docusate Sodium (Colace) 100 mg PO BID [facility] Last Admin: 04/15/16 08:16 Dose: 100 mg Levofloxacin/Dextrose 500 mg/ (Premix) 100 mls @ 100 mls/hr IV Q24H [facility] Last Admin: 04/15/16 23:28 Dose: 100 mls/hr Sodium Chloride (Normal Saline) 1,000 mls @ 75 mls/hr IV ASDIRECTED [facility] Sodium Chloride (Normal Saline) 1,000 mls @ 50 mls/hr IV ASDIRECTED [facility] Last Admin: 04/16/16 22:29 Dose: 50 mls/hr Insulin Aspart (Novolog) 6 unit SUBCUT ONETIME ONE Stop: 04/16/16 08:01 Last Admin: 04/16/16 08:13 Dose: 6 units Lorazepam (Ativan) 1 mg IVPUSH ONETIME ONE Stop: 04/13/16 22:03 Last Admin: 04/13/16 22:19 Dose: 1 mg Lorazepam (Ativan) 2 mg IVPUSH ONETIME ONE Stop: 04/14/16 02:09 Last Admin: 04/14/16 02:08 Dose: 2 mg Methylprednisolone Sodium Succinate (Solu-Medrol) 125 mg IVPUSH Q6H [facility] Last Admin: 04/14/16 05:31 Dose: 125 mg Potassium Chloride (Klor-Con M20) 20 meq PO BID [facility] Last Admin: 04/14/16 08:15 Dose: 20 meq Sodium Biphosphate/Sodium Phosphate (Fleet Enema) 133 ml RECTAL ONETIME ONE Stop: 04/16/16 08:47 Last Admin: 04/16/16 10:23 Dose: 133 ml Warfarin Sodium (Coumadin) 5 mg PO MoFr@1300 DAVIN Last Admin: 04/14/16 13:46 Dose: 5 mg Warfarin Sodium (Coumadin) 7.5 mg PO SuTuWeThSa@1300 [place] Warfarin Sodium (Coumadin) 2.5 mg PO ONETIME ONE Stop: 04/15/16 13:01 Last Admin: 04/15/16 13:31 Dose: Not Given Warfarin Sodium (Coumadin) 2.5 mg PO ONETIME ONE Stop: 04/15/16 16:01 Last Admin: 04/15/16 16:05 Dose: 2.5 mg Warfarin Sodium (Coumadin) 5 mg PO ONETIME ONE Stop: 04/16/16 16:01 Last Admin: 04/16/16 15:59 Dose: 5 mg - Exam Quality Assessment: supplemental oxygen, DVT prophylaxis General: alert, oriented, cooperative, mild distress Lungs: Decreased breath sounds, Wheezing. No: Crackles, Rales, Rhonchi, Rub, Stridor Cardiovascular: regular rate, regular rhythm, no murmurs Abdomen: bowel sounds present, soft, no tenderness, no distension Extremities: edema Skin: warm, dry, intact - Problem List Review Problem List Initiated/Reviewed/Updated: Yes - My Orders Last 24 Hours: My Active Orders 04/16/16 16:00 Doxycycline [Vibramycin] 100 mg Sodium Chloride 0.9% [Normal Saline] 100 ml IV Q12H 04/17/16 12:23 Albuterol/Ipratropium [DuoNeb 3.0-0.5 MG/3 ML] 3 ml NEB QIDRT PRN Convert IV to Saline Lock [OM.PC] Routine 04/17/16 12:24 Warfarin [Coumadin] 7.5 mg PO ONETIME ONE 04/17/16 12:25 Daily Weight [Height and Weight] [RC] DAILY 04/17/16 12:30 Bumetanide [Bumex] 1 mg PO BID 04/17/16 16:30 GLUCOSE POC LAB TO COLLECT [POC] QIDACANDBED 04/17/16 21:00 GLUCOSE POC LAB TO COLLECT [POC] QIDACANDBED 04/18/16 05:00 BASIC METABOLIC PANEL,BMP [CHEM] Timed 04/18/16 05:11 INR,PT,PROTHROMBIN TIME [COAG] AM 04/18/16 07:30 GLUCOSE POC LAB TO COLLECT [POC] QIDACANDBED 04/18/16 09:00 Calcitonin ([place]) [Miacalcin Nasal [place]] 1 spray ADRIANNA DAILY L.acidoph,Paracasei, B.lactis [Probiotic] 2 each PO DAILY 04/18/16 11:30 GLUCOSE POC LAB TO COLLECT [POC] QIDACANDBED 04/18/16 16:30 GLUCOSE POC LAB TO COLLECT [POC] QIDACANDBED 04/18/16 21:00 GLUCOSE POC LAB TO COLLECT [POC] QIDACANDBED 04/19/16 07:30 GLUCOSE POC LAB TO COLLECT [POC] QIDACANDBED 04/19/16 11:30 GLUCOSE POC LAB TO COLLECT [POC] QIDACANDBED 04/19/16 16:30 GLUCOSE POC LAB TO COLLECT [POC] QIDACANDBED 04/19/16 21:00 GLUCOSE POC LAB TO COLLECT [POC] QIDACANDBED - Plan Plan:: ASSESSMENT / PLAN ACUTE ON CHRONIC HYPERCAPNIC AND HYPOXIC RESPIRATORY FAILURE-likely secondary to underlying infection, viral versus bacterial. Modest improvement in symptoms over the past 24 hours -Solu-Medrol 40 mg IV q. 6 hours -Nebulizer therapy -Saline lock IV -Doxycycline 100 mg IV every 12 hours -Supplemental oxygen as needed, maintain O2 sats in the range of 80-92% SEVERE COPD -Management as above ANXIETY -continue anxiety medication -Ativan IV 1 mg given in ER -Oxygen per nasal cannula LONG-TERM ORAL ANTICOAGULATION WITH WARFARIN-INR within the desired range today -Warfarin 7.5 mg by mouth today -Recheck INR in a.m. Maintenance issues -Nutrition: Regular diet -Nunez catheter not indicated at this time -DVT: Current therapy with warfarin should provide adequate DVT prophylaxis -GI prophaxis; Prontinxix 20mg daily CODE STATUS: Full Admission status: Admit to ICU Med overflow Admission justification. This patient will be admitted for inpatient services and is medically appropriate meeting medical necessity for inpatient admission as outlined in my documentation. I reasonably expect the patient will require inpatient services that span. Time over 2 midnights. I reasonably expect this patient to be discharged or transferred within 96 hours after admission to the critical [facility]. Disposition;Retirement resident Primary care provider: Dr. Rosario
[2016-04-17] MEDS ORDERED: Warfarin 2.5 MG Tab PO ONE (13:00)
[2016-04-17] MEDS: Bumetanide 1 MG Tab PO SCH ×2 (13:44→21:19)
[2016-04-17] MEDS: ALPRAZolam 0.25 MG Tab PO PRN (14:05)
[2016-04-17] MEDS: Albuterol 0.083% 2.5 MG/3 ML Neb Soln NEB PRN ×2 (18:11→18:27)
[2016-04-17] MEDS: rOPINIRole 1 MG Tab PO SCH (21:19)
[2016-04-17] MEDS: Mirtazapine 15 MG Tab PO SCH (21:20)
[2016-04-18] MEDS: methylPREDNISolone Sodium Succinate 40 MG/1 ML SDV IVPUSH SCH ×3 (00:04→17:15)
[2016-04-18] MEDS: Morphine 15 MG Tab.ER PO SCH ×3 (00:04→23:24)
[2016-04-18] MEDS: Doxycycline 100 MG in Sodium Chloride 0.9% 100 ML IV SCH (03:43)
[2016-04-18] MEDS: Nystatin Susp 100,000 Unit/ML 5 ML UD Cup PO SCH ×4 (05:52→21:15)
[2016-04-18] MEDS: Budesonide 0.5 MG/2 ML Neb Susp NEB SCH ×2 (07:11→21:23)
[2016-04-18] MEDS: Tiotropium Inhaler 18 MCG Inhalation Powder Cap Kit of 5 INH SCH (07:14)
[2016-04-18] MEDS: Insulin Aspart 100 Units/ML 3 ML Pen SUBCUT SCH ×4 (07:51→21:12)
[2016-04-18] MEDS: Carvedilol 12.5 MG Tab PO SCH ×2 (07:51→17:16)
[2016-04-18] MEDS: ALPRAZolam 0.25 MG Tab PO PRN (08:10)
[2016-04-18] MEDS: Bumetanide 1 MG Tab PO SCH ×2 (08:41→15:31)
[2016-04-18] MEDS: busPIRone 10 MG Tab PO SCH ×3 (08:41→21:13)
[2016-04-18] MEDS: Famotidine 20 MG Tab PO SCH (08:41)
[2016-04-18] MEDS: Aspirin 81 MG Tab.EC PO SCH (08:41)
[2016-04-18] MEDS: Lactobacillus Rhamnosus GG (Probiotic) Cap PO SCH (08:41)
[2016-04-18] MEDS: Diltiazem 180 MG Cap.CD PO SCH (08:42)
[2016-04-18] MEDS: Mometasone Furoate Nasal Spray 17 GM Canister NAS SCH ×2 (08:42→21:14)
[2016-04-18] MEDS: Polyethylene Glycol 3350 Powder 17 GM Packet PO SCH (08:42)
[2016-04-18] MEDS: guaiFENesin 600 MG Tab.ER PO SCH ×2 (08:42→21:14)
[2016-04-18] MEDS: Oxymetazoline 0.05% Nasal Spray 15 ML Bottle NAS SCH ×2 (08:43→21:13)
[2016-04-18] MEDS: Citalopram 20 MG Tab PO SCH (08:44)
[2016-04-18] MEDS ORDERED: ACIDOPH PARACASEI B LACTIS PO SCH (09:00)
[2016-04-18] MEDS: Calcitonin (Salmon) Nasal Spray 3.7 ML Bottle NAS SCH (11:22)
[2016-04-18] MEDS: Albuterol 0.083% 2.5 MG/3 ML Neb Soln NEB PRN (11:55)
[2016-04-18] MEDS: Albuterol/Ipratropium 3.0-0.5 MG/3 ML Neb Soln NEB PRN (14:58)
--- NOTE | 2016-04-18 14:58 | PCM.PN ---
- General Info Date of Service: 04/18/16 Functional Status: Reports: ambulating, urinating - Review of Systems General: Reports: weakness. Denies: fever, chills Pulmonary: Reports: shortness of breath. Denies: pleuritic chest pain, cough, sputum, hemoptysis, wheezing Cardiovascular: Reports: dyspnea on exertion, edema. Denies: chest pain, palpitations, orthopnea, PND, lightheadedness Gastrointestinal: Reports: No symptoms Systems Review Comment:: Zhane has experienced moderate improvement in her shortness of breath since admission, is not yet back to baseline. Vital signs have been stable and she has remained afebrile. IV access has become a problem so we'll plan to transition over to oral medications. - Patient Data Vitals - most recent: Last Vital Signs Temp 97.6 F 04/18/16 11:38 Pulse 88 04/18/16 11:55 Resp 20 04/18/16 11:38 BP 158/72 H 04/18/16 11:38 Pulse Ox 93 L 04/18/16 11:38 Weight - most recent: 173 lb 3.2 oz I&O - last 24 hours: Intake & Output 04/17/16 04/18/16 04/18/16 22:59 06:59 14:59 Intake Total 220 100 60 Output Total 900 300 200 Balance -680 -200 -140 Lab Results last 24 hrs: Laboratory Results - last 24 hr 04/18/16 04/18/16 Range/Units 03:57 03:57 PT 27.7 H (9.5-12.0) sec INR 2.54 H (0.80-1.20) Sodium 145 (140-148) mmol/L Potassium 4.1 (3.6-5.2) mmol/L Chloride 107 (100-108) mmol/L Carbon Dioxide 33 H (21-32) mmol/L Anion Gap 9.1 (5.0-14.0) mmol/L BUN 36 H (7-18) mg/dL Creatinine 1.3 H (0.6-1.0) mg/dL Est Cr Clr Drug Dosing 31.72 mL/min Estimated GFR (MDRD) 41 L (>60) Glucose 149 H (74-106) mg/dL Calcium 8.0 L (8.5-10.1) mg/dL Med Orders - Current: Current Medications Albuterol (Proventil Neb Soln) 2.5 mg NEB Q4H PRN PRN Reason: Shortness Of Breath/wheezing Last Admin: 04/18/16 11:55 Dose: 2.5 mg Albuterol/Ipratropium (Duoneb 3.0-0.5 Mg/3 Ml) 3 ml NEB QIDRT PRN PRN Reason: Dyspnea Alprazolam (Xanax) 0.25 mg PO BID PRN PRN Reason: panic attack Last Admin: 04/18/16 08:10 Dose: 0.25 mg Aspirin (Halfprin) 81 mg PO DAILY [facility] Last Admin: 04/18/16 08:41 Dose: 81 mg Bisacodyl (Dulcolax) 5 mg PO DAILY PRN PRN Reason: Constipation Last Admin: 04/16/16 08:26 Dose: 5 mg Budesonide (Pulmicort) 0.5 mg NEB BIDRT [facility] Last Admin: 04/18/16 07:11 Dose: 0.5 mg Bumetanide (Bumex) 2 mg PO BID [facility] Buspirone HCl (Buspar) 20 mg PO TID [facility] Last Admin: 04/18/16 13:48 Dose: 20 mg Calcitonin [place] (Miacalcin Nasal [place]) 0 ml ADRIANNA DAILY [facility] Last Admin: 04/18/16 11:22 Dose: 1 spray Carvedilol (Coreg) 12.5 mg PO BIDMEALS [facility] Last Admin: 04/18/16 07:51 Dose: 12.5 mg Citalopram Hydrobromide (Celexa) 20 mg PO DAILY [facility] Last Admin: 04/18/16 08:44 Dose: 20 mg Diltiazem HCl (Cardizem Cd) 180 mg PO DAILY [facility] Last Admin: 04/18/16 08:42 Dose: 180 mg Docusate Sodium (Colace) 100 mg PO BID PRN PRN Reason: Constipation Last Admin: 04/17/16 08:14 Dose: 100 mg Doxycycline Hyclate (Vibramycin) 100 mg PO Q12H [facility] Famotidine (Pepcid) 20 mg PO DAILY [facility] Last Admin: 04/18/16 08:41 Dose: 20 mg Guaifenesin (Mucinex) 600 mg PO BID [facility] Last Admin: 04/18/16 08:42 Dose: 600 mg Insulin Aspart (Novolog) 0 unit SUBCUT ASDIRECTED [facility] PRN Reason: Protocol Last Admin: 04/18/16 12:18 Dose: 1 units Lactobacillus Rhamnosus (Culturelle) 2 cap PO DAILY [facility] Last Admin: 04/18/16 08:41 Dose: 2 cap Lorazepam (Ativan) 1 mg IVPUSH Q2H PRN PRN Reason: Anxiety Last Admin: 04/17/16 08:01 Dose: 1 mg Mirtazapine (Remeron) 22.5 mg PO BEDTIME [facility] Last Admin: 04/17/16 21:20 Dose: 22.5 mg Mometasone Furoate (Nasonex [place]) 0 gm ADRIANNA BID [facility] Last Admin: 04/18/16 08:42 Dose: 1 spr Morphine Sulfate (Ms Contin) 15 mg PO Q12H [facility] Last Admin: 04/18/16 11:22 Dose: 15 mg Nitroglycerin (Nitrostat) 0.4 mg SL DAILY PRN PRN Reason: Chest Pain Nystatin (Mycostatin) 5 ml PO QID [facility] Last Admin: 04/18/16 09:36 Dose: 5 ml Ondansetron HCl (Zofran) 4 mg IV Q4H PRN PRN Reason: Nausea/Vomiting Oxycodone HCl (Oxycodone) 10 mg PO BID PRN PRN Reason: Pain Oxymetazoline HCl (Afrin Original 0.05% Nasal [place]) 0 ml ADRIANNA BID [facility] Last Admin: 04/18/16 08:43 Dose: 1 spray Polyethylene Glycol (Miralax) 17 gm PO DAILY [facility] Last Admin: 04/18/16 08:42 Dose: 17 gm Prednisone (Prednisone) 40 mg PO BID [facility] Ropinirole HCl (Requip) 1 mg PO BEDTIME [facility] Last Admin: 04/17/16 21:19 Dose: 1 mg Senna/Docusate Sodium (Senna Plus) 1 tab PO BID [facility] Last Admin: 04/18/16 08:42 Dose: 1 tab Tiotropium [place] (Spiriva Handihaler) 18 mcg INH DAILYRT [facility] Last Admin: 04/18/16 07:14 Dose: 18 mcg Triamcinolone Acetonide (Triamcinolone Acetonide 0.1% Crm) 0 gm TOP DAILY PRN PRN Reason: Rash Last Admin: 04/15/16 21:35 Dose: 1 applic Warfarin Sodium (Coumadin) 5 mg PO ONETIME ONE Stop: 04/18/16 14:55 Zolpidem Tartrate (Ambien) 5 mg PO BEDTIME PRN PRN Reason: Sleep Discontinued Medications Albuterol/Ipratropium (Duoneb 3.0-0.5 Mg/3 Ml) 3 ml NEB QID PRN PRN Reason: Shortness Of Breath/wheezing Last Admin: 04/14/16 19:20 Dose: 3 ml Albuterol/Ipratropium (Duoneb 3.0-0.5 Mg/3 Ml) 3 ml NEB QIDRT [facility] Last Admin: 04/17/16 10:37 Dose: 3 ml Arformoterol Tartrate (Brovana) 15 mcg NEB BIDRT [facility] Last Admin: 04/17/16 07:35 Dose: 15 mcg Bumetanide (Bumex) 1 mg PO BID [facility] Last Admin: 04/18/16 08:41 Dose: 1 mg Docusate Sodium (Colace) 100 mg PO BID [facility] Last Admin: 04/15/16 08:16 Dose: 100 mg Levofloxacin/Dextrose 500 mg/ (Premix) 100 mls @ 100 mls/hr IV Q24H [facility] Last Admin: 04/15/16 23:28 Dose: 100 mls/hr Sodium Chloride (Normal Saline) 1,000 mls @ 75 mls/hr IV ASDIRECTED [facility] Doxycycline Hyclate 100 mg/ (Sodium Chloride) 100 mls @ 100 mls/hr IV Q12H [facility] Last Admin: 04/18/16 03:43 Dose: 100 mls/hr Sodium Chloride (Normal Saline) 1,000 mls @ 50 mls/hr IV ASDIRECTED [facility] Last Admin: 04/16/16 22:29 Dose: 50 mls/hr Insulin Aspart (Novolog) 6 unit SUBCUT ONETIME ONE Stop: 04/16/16 08:01 Last Admin: 04/16/16 08:13 Dose: 6 units Lorazepam (Ativan) 1 mg IVPUSH ONETIME ONE Stop: 04/13/16 22:03 Last Admin: 04/13/16 22:19 Dose: 1 mg Lorazepam (Ativan) 2 mg IVPUSH ONETIME ONE Stop: 04/14/16 02:09 Last Admin: 04/14/16 02:08 Dose: 2 mg Methylprednisolone Sodium Succinate (Solu-Medrol) 125 mg IVPUSH Q6H [facility] Last Admin: 04/14/16 05:31 Dose: 125 mg Methylprednisolone Sodium Succinate (Solu-Medrol) 40 mg IVPUSH Q6H [facility] Last Admin: 04/18/16 05:52 Dose: 40 mg Potassium Chloride (Klor-Con M20) 20 meq PO BID [facility] Last Admin: 04/14/16 08:15 Dose: 20 meq Sodium Biphosphate/Sodium Phosphate (Fleet Enema) 133 ml RECTAL ONETIME ONE Stop: 04/16/16 08:47 Last Admin: 04/16/16 10:23 Dose: 133 ml Warfarin Sodium (Coumadin) 5 mg PO MoFr@1300 [facility] Last Admin: 04/14/16 13:46 Dose: 5 mg Warfarin Sodium (Coumadin) 7.5 mg PO SuTuWeThSa@1300 [facility] Warfarin Sodium (Coumadin) 2.5 mg PO ONETIME ONE Stop: 04/15/16 13:01 Last Admin: 04/15/16 13:31 Dose: Not Given Warfarin Sodium (Coumadin) 2.5 mg PO ONETIME ONE Stop: 04/15/16 16:01 Last Admin: 04/15/16 16:05 Dose: 2.5 mg Warfarin Sodium (Coumadin) 5 mg PO ONETIME ONE Stop: 04/16/16 16:01 Last Admin: 04/16/16 15:59 Dose: 5 mg Warfarin Sodium (Coumadin) 7.5 mg PO ONETIME ONE Stop: 04/17/16 13:01 Last Admin: 04/17/16 13:43 Dose: 7.5 mg - Exam Quality Assessment: supplemental oxygen, DVT prophylaxis General: alert, oriented, cooperative, mild distress Lungs: Decreased breath sounds. No: Crackles, Rales, Rhonchi, Rub, Stridor, Wheezing Cardiovascular: regular rate, regular rhythm, no murmurs Abdomen: bowel sounds present, soft, no tenderness, no distension Extremities: no edema Skin: warm, dry, intact - Problem List Review Problem List Initiated/Reviewed/Updated: Yes - My Orders Last 24 Hours: My Active Orders 04/18/16 09:00 Calcitonin ([place]) [Miacalcin Nasal [place]] 0 ml ADRIANNA DAILY Lactobacillus Rhamnosus GG [Culturelle] 2 cap PO DAILY 04/18/16 14:49 Bumetanide [Bumex] 2 mg PO BID 04/18/16 14:54 Warfarin [Coumadin] 5 mg PO ONETIME ONE 04/18/16 15:00 Doxycycline [Vibramycin] 100 mg PO Q12H 04/18/16 16:30 GLUCOSE POC LAB TO COLLECT [POC] QIDACANDBED 04/18/16 21:00 GLUCOSE POC LAB TO COLLECT [POC] QIDACANDBED predniSONE 40 mg PO BID 04/19/16 05:00 BASIC METABOLIC PANEL,BMP [CHEM] Timed 04/19/16 05:11 INR,PT,PROTHROMBIN TIME [COAG] AM 04/19/16 07:30 GLUCOSE POC LAB TO COLLECT [POC] QIDACANDBED 04/19/16 11:30 GLUCOSE POC LAB TO COLLECT [POC] QIDACANDBED 04/19/16 16:30 GLUCOSE POC LAB TO COLLECT [POC] QIDACANDBED 04/19/16 21:00 GLUCOSE POC LAB TO COLLECT [POC] QIDACANDBED - Plan Plan:: ASSESSMENT / PLAN ACUTE ON CHRONIC HYPERCAPNIC AND HYPOXIC RESPIRATORY FAILURE-likely secondary to underlying infection, viral versus bacterial. Symptoms have improved over the past few days since admission -Prednisone 40 mg twice daily -Nebulizer therapy -Saline lock IV -Doxycycline 100 mg po every 12 hours -Supplemental oxygen as needed, maintain O2 sats in the range of 80-92% SEVERE COPD -Management as above ANXIETY -continue anxiety medication -Ativan IV 1 mg given in ER -Oxygen per nasal cannula LONG-TERM ORAL ANTICOAGULATION WITH WARFARIN-INR within the desired range today -Warfarin 5 mg by mouth today -Recheck INR in a.m. Maintenance issues -Nutrition: Regular diet -Nunez catheter not indicated at this time -DVT: Current therapy with warfarin should provide adequate DVT prophylaxis -GI prophaxis; Prontinxix 20mg daily CODE STATUS: Full Admission status: Admit to ICU Med overflow Admission justification. This patient will be admitted for inpatient services and is medically appropriate meeting medical necessity for inpatient admission as outlined in my documentation. I reasonably expect the patient will require inpatient services that span. Time over 2 midnights. I reasonably expect this patient to be discharged or transferred within 96 hours after admission to the critical access hospital. Disposition;Correction resident Primary care provider: Dr. Rosario
[2016-04-18] MEDS: LORazepam 1 MG Tab PO PRN ×2 (15:36→21:32)
[2016-04-18] MEDS ORDERED: Warfarin 5 MG Tab PO ONE (16:00)
[2016-04-18] MEDS: predniSONE 20 MG Tab PO SCH (17:16)
[2016-04-18] MEDS: Doxycycline 100 MG Cap PO SCH (17:16)
[2016-04-18] MEDS: Mirtazapine 15 MG Tab PO SCH (21:15)
[2016-04-18] MEDS: rOPINIRole 1 MG Tab PO SCH (21:18)
[2016-04-19] MEDS: Albuterol/Ipratropium 3.0-0.5 MG/3 ML Neb Soln NEB PRN ×3 (03:24→14:57)
[2016-04-19] MEDS: Doxycycline 100 MG Cap PO SCH ×2 (05:31→17:00)
[2016-04-19] MEDS: Nystatin Susp 100,000 Unit/ML 5 ML UD Cup PO SCH ×4 (05:31→21:18)
[2016-04-19] MEDS: Budesonide 0.5 MG/2 ML Neb Susp NEB SCH ×2 (07:16→20:46)
[2016-04-19] MEDS: Bumetanide 1 MG Tab PO SCH ×2 (07:56→14:20)
[2016-04-19] MEDS: predniSONE 20 MG Tab PO SCH ×2 (07:57→17:00)
[2016-04-19] MEDS: Carvedilol 12.5 MG Tab PO SCH ×2 (07:58→17:00)
[2016-04-19] MEDS: Tiotropium Inhaler 18 MCG Inhalation Powder Cap Kit of 5 INH SCH (08:48)
[2016-04-19] MEDS: Oxymetazoline 0.05% Nasal Spray 15 ML Bottle NAS SCH ×2 (09:21→20:44)
[2016-04-19] MEDS: Polyethylene Glycol 3350 Powder 17 GM Packet PO SCH (09:21)
[2016-04-19] MEDS: Mometasone Furoate Nasal Spray 17 GM Canister NAS SCH ×2 (09:21→20:45)
[2016-04-19] MEDS: Calcitonin (Salmon) Nasal Spray 3.7 ML Bottle NAS SCH (09:23)
[2016-04-19] MEDS: Citalopram 20 MG Tab PO SCH (09:24)
[2016-04-19] MEDS: Famotidine 20 MG Tab PO SCH (09:24)
[2016-04-19] MEDS: busPIRone 10 MG Tab PO SCH ×3 (09:24→20:45)
[2016-04-19] MEDS: Diltiazem 180 MG Cap.CD PO SCH (09:24)
[2016-04-19] MEDS: Aspirin 81 MG Tab.EC PO SCH (09:25)
[2016-04-19] MEDS: guaiFENesin 600 MG Tab.ER PO SCH ×2 (09:25→20:45)
[2016-04-19] MEDS: Lactobacillus Rhamnosus GG (Probiotic) Cap PO SCH (09:25)
[2016-04-19] MEDS: Morphine 15 MG Tab.ER PO SCH ×2 (10:58→22:08)
[2016-04-19] MEDS: Insulin Aspart 100 Units/ML 3 ML Pen SUBCUT SCH ×3 (12:20→20:54)
--- NOTE | 2016-04-19 14:46 | PCM.PN ---
- General Info Date of Service: 04/19/16 - Review of Systems General: Reports: weakness. Denies: fever, chills Pulmonary: Reports: shortness of breath, cough. Denies: pleuritic chest pain, sputum, hemoptysis, wheezing Cardiovascular: Reports: dyspnea on exertion, edema. Denies: chest pain, palpitations, orthopnea, PND, lightheadedness Gastrointestinal: Reports: No symptoms Systems Review Comment:: Zhane continues to experience significant shortness of breath despite current therapy. Vital signs have been stable and she has remained afebrile. Continues to feel somewhat bloated and fluid overloaded. - Patient Data Vitals - most recent: Last Vital Signs Temp 98.6 F 04/19/16 14:00 Pulse 76 04/19/16 14:00 Resp 20 04/19/16 14:00 BP 140/75 04/19/16 14:19 Pulse Ox 91 L 04/19/16 14:00 Weight - most recent: 163 lb 14.4 oz I&O - last 24 hours: Intake & Output 04/18/16 04/19/16 04/19/16 22:59 06:59 14:59 Intake Total 840 120 477 Output Total 2307 463 5333 Balance -011 -669 -837 Lab Results last 24 hrs: Laboratory Results - last 24 hr 04/19/16 04/19/16 Range/Units 06:03 06:03 PT 36.1 H (9.5-12.0) sec INR 3.28 H (0.80-1.20) Sodium 143 (140-148) mmol/L Potassium 3.8 (3.6-5.2) mmol/L Chloride 104 (100-108) mmol/L Carbon Dioxide 36 H (21-32) mmol/L Anion Gap 6.8 (5.0-14.0) mmol/L BUN 38 H (7-18) mg/dL Creatinine 1.3 H (0.6-1.0) mg/dL Est Cr Clr Drug Dosing 31.72 mL/min Estimated GFR (MDRD) 41 L (>60) Glucose 140 H (74-106) mg/dL Calcium 7.2 L (8.5-10.1) mg/dL Med Orders - Current: Current Medications Albuterol (Proventil Neb Soln) 2.5 mg NEB Q4H PRN PRN Reason: Shortness Of Breath/wheezing Last Admin: 04/18/16 11:55 Dose: 2.5 mg Albuterol/Ipratropium (Duoneb 3.0-0.5 Mg/3 Ml) 3 ml NEB QIDRT PRN PRN Reason: Dyspnea Last Admin: 04/19/16 11:47 Dose: 3 ml Alprazolam (Xanax) 0.25 mg PO BID PRN PRN Reason: panic attack Last Admin: 04/18/16 08:10 Dose: 0.25 mg Aspirin (Halfprin) 81 mg PO DAILY [facility] Last Admin: 04/19/16 09:25 Dose: 81 mg Bisacodyl (Dulcolax) 5 mg PO DAILY PRN PRN Reason: Constipation Last Admin: 04/16/16 08:26 Dose: 5 mg Budesonide (Pulmicort) 0.5 mg NEB BIDRT [facility] Last Admin: 04/19/16 07:16 Dose: 0.5 mg Bumetanide (Bumex) 4 mg PO BID@0800,1400 [facility] Buspirone HCl (Buspar) 20 mg PO TID [facility] Last Admin: 04/19/16 14:20 Dose: 20 mg Calcitonin [place] (Miacalcin Nasal [place]) 0 ml ADRIANNA DAILY [facility] Last Admin: 04/19/16 09:23 Dose: 1 spray Carvedilol (Coreg) 12.5 mg PO BIDMEALS [facility] Last Admin: 04/19/16 07:58 Dose: 12.5 mg Citalopram Hydrobromide (Celexa) 20 mg PO DAILY [facility] Last Admin: 04/19/16 09:24 Dose: 20 mg Diltiazem HCl (Cardizem Cd) 180 mg PO DAILY [facility] Last Admin: 04/19/16 09:24 Dose: 180 mg Docusate Sodium (Colace) 100 mg PO BID PRN PRN Reason: Constipation Last Admin: 04/17/16 08:14 Dose: 100 mg Doxycycline Hyclate (Vibramycin) 100 mg PO Q12H [facility] Last Admin: 04/19/16 05:31 Dose: 100 mg Famotidine (Pepcid) 20 mg PO DAILY [facility] Last Admin: 04/19/16 09:24 Dose: 20 mg Guaifenesin (Mucinex) 600 mg PO BID [facility] Last Admin: 04/19/16 09:25 Dose: 600 mg Insulin Aspart (Novolog) 0 unit SUBCUT ASDIRECTED [facility] PRN Reason: Protocol Last Admin: 04/19/16 12:20 Dose: 2 units Lactobacillus Rhamnosus (Culturelle) 2 cap PO DAILY [facility] Last Admin: 04/19/16 09:25 Dose: 2 cap Lorazepam (Ativan) 1 mg IVPUSH Q2H PRN PRN Reason: Anxiety Last Admin: 04/17/16 08:01 Dose: 1 mg Lorazepam (Ativan) 1 mg PO Q4H PRN PRN Reason: Anxiety Last Admin: 04/18/16 21:32 Dose: 1 mg Mirtazapine (Remeron) 22.5 mg PO BEDTIME [facility] Last Admin: 04/18/16 21:15 Dose: 22.5 mg Mometasone Furoate (Nasonex [place]) 0 gm ADRIANNA BID [facility] Last Admin: 04/19/16 09:21 Dose: 1 spr Morphine Sulfate (Ms Contin) 15 mg PO Q12H [facility] Last Admin: 04/19/16 10:58 Dose: 15 mg Nitroglycerin (Nitrostat) 0.4 mg SL DAILY PRN PRN Reason: Chest Pain Nystatin (Mycostatin) 5 ml PO QID [facility] Last Admin: 04/19/16 09:21 Dose: 5 ml Ondansetron HCl (Zofran) 4 mg IV Q4H PRN PRN Reason: Nausea/Vomiting Oxycodone HCl (Oxycodone) 10 mg PO BID PRN PRN Reason: Pain Oxymetazoline HCl (Afrin Original 0.05% Nasal [place]) 0 ml ADRIANNA BID [facility] Last Admin: 04/19/16 09:21 Dose: 1 spray Polyethylene Glycol (Miralax) 17 gm PO DAILY [facility] Last Admin: 04/19/16 09:21 Dose: 17 gm Prednisone (Prednisone) 40 mg PO BIDMEALS [facility] Last Admin: 04/19/16 07:57 Dose: 40 mg Ropinirole HCl (Requip) 1 mg PO BEDTIME [facility] Last Admin: 04/18/16 21:18 Dose: 1 mg Senna/Docusate Sodium (Senna Plus) 1 tab PO BID [facility] Last Admin: 04/19/16 09:25 Dose: 1 tab Tiotropium [place] (Spiriva Handihaler) [facility] Last Admin: 04/19/16 08:48 Dose: 18 mcg Triamcinolone Acetonide (Triamcinolone Acetonide 0.1% Crm) 0 gm TOP DAILY PRN PRN Reason: Rash Last Admin: 04/15/16 21:35 Dose: 1 applic Zolpidem Tartrate (Ambien) 5 mg PO BEDTIME PRN PRN Reason: Sleep Discontinued Medications Albuterol/Ipratropium (Duoneb 3.0-0.5 Mg/3 Ml) 3 ml NEB QID PRN PRN Reason: Shortness Of Breath/wheezing Last Admin: 04/14/16 19:20 Dose: 3 ml Albuterol/Ipratropium (Duoneb 3.0-0.5 Mg/3 Ml) 3 ml NEB QIDRT [facility] Last Admin: 04/17/16 10:37 Dose: 3 ml Arformoterol Tartrate (Brovana) 15 mcg NEB BIDRT [facility] Last Admin: 04/17/16 07:35 Dose: 15 mcg Bumetanide (Bumex) 1 mg PO BID [facility] Last Admin: 04/18/16 08:41 Dose: 1 mg Bumetanide (Bumex) 2 mg PO BID@0800,1400 [facility] Last Admin: 04/19/16 14:20 Dose: 2 mg Docusate Sodium (Colace) 100 mg PO BID [facility] Last Admin: 04/15/16 08:16 Dose: 100 mg Levofloxacin/Dextrose 500 mg/ (Premix) 100 mls @ 100 mls/hr IV Q24H [facility] Last Admin: 04/15/16 23:28 Dose: 100 mls/hr Sodium Chloride (Normal Saline) 1,000 mls @ 75 mls/hr IV ASDIRECTED [facility] Doxycycline Hyclate 100 mg/ (Sodium Chloride) 100 mls @ 100 mls/hr IV Q12H [facility] Last Admin: 04/18/16 03:43 Dose: 100 mls/hr Sodium Chloride (Normal Saline) 1,000 mls @ 50 mls/hr IV ASDIRECTED [facility] Last Admin: 04/16/16 22:29 Dose: 50 mls/hr Insulin Aspart (Novolog) 6 unit SUBCUT ONETIME ONE Stop: 04/16/16 08:01 Last Admin: 04/16/16 08:13 Dose: 6 units Lorazepam (Ativan) 1 mg IVPUSH ONETIME ONE Stop: 04/13/16 22:03 Last Admin: 04/13/16 22:19 Dose: 1 mg Lorazepam (Ativan) 2 mg IVPUSH ONETIME ONE Stop: 04/14/16 02:09 Last Admin: 04/14/16 02:08 Dose: 2 mg Methylprednisolone Sodium Succinate (Solu-Medrol) 125 mg IVPUSH Q6H [facility] Last Admin: 04/14/16 05:31 Dose: 125 mg Methylprednisolone Sodium Succinate (Solu-Medrol) 40 mg IVPUSH Q6H [facility] Last Admin: 04/18/16 17:15 Dose: Not Given Potassium Chloride (Klor-Con M20) 20 meq PO BID [facility] Last Admin: 04/14/16 08:15 Dose: 20 meq Sodium Biphosphate/Sodium Phosphate (Fleet Enema) 133 ml RECTAL ONETIME ONE Stop: 04/16/16 08:47 Last Admin: 04/16/16 10:23 Dose: 133 ml Warfarin Sodium (Coumadin) 5 mg PO MoFr@1300 [facility] Last Admin: 04/14/16 13:46 Dose: 5 mg Warfarin Sodium (Coumadin) 7.5 mg PO SuTuWeThSa@1300 [facility] Warfarin Sodium (Coumadin) 2.5 mg PO ONETIME ONE Stop: 04/15/16 13:01 Last Admin: 04/15/16 13:31 Dose: Not Given Warfarin Sodium (Coumadin) 2.5 mg PO ONETIME ONE Stop: 04/15/16 16:01 Last Admin: 04/15/16 16:05 Dose: 2.5 mg Warfarin Sodium (Coumadin) 5 mg PO ONETIME ONE Stop: 04/16/16 16:01 Last Admin: 04/16/16 15:59 Dose: 5 mg Warfarin Sodium (Coumadin) 7.5 mg PO ONETIME ONE Stop: 04/17/16 13:01 Last Admin: 04/17/16 13:43 Dose: 7.5 mg Warfarin Sodium (Coumadin) 5 mg PO ONETIME ONE Stop: 04/18/16 16:01 Last Admin: 04/18/16 15:31 Dose: 5 mg - Exam Quality Assessment: supplemental oxygen, DVT prophylaxis General: alert, oriented, cooperative, mild distress Lungs: Decreased breath sounds. No: Crackles, Rales, Rhonchi, Rub, Stridor, Wheezing Cardiovascular: regular rate, regular rhythm, no murmurs Abdomen: bowel sounds present, soft, no tenderness, no distension Extremities: edema Skin: warm, dry, intact - Problem List Review Problem List Initiated/Reviewed/Updated: Yes - My Orders Last 24 Hours: My Active Orders 04/18/16 15:28 LORazepam [Ativan] 1 mg PO Q4H PRN 04/18/16 17:00 Doxycycline [Vibramycin] 100 mg PO Q12H predniSONE 40 mg PO BIDMEALS 04/19/16 14:40 Bumetanide [Bumex] 4 mg PO BID@0800,1400 04/19/16 14:43 Warfarin [Coumadin] 2.5 mg PO ONETIME ONE 04/19/16 16:30 GLUCOSE POC LAB TO COLLECT [POC] QIDACANDBED 04/19/16 21:00 GLUCOSE POC LAB TO COLLECT [POC] QIDACANDBED 04/20/16 05:00 BASIC METABOLIC PANEL,BMP [CHEM] Timed CBC WITH AUTO DIFF [HEME] Timed INR,PT,PROTHROMBIN TIME [COAG] Timed MAGNESIUM [CHEM] Timed - Plan Plan:: ASSESSMENT / PLAN ACUTE ON CHRONIC HYPERCAPNIC AND HYPOXIC RESPIRATORY FAILURE-likely secondary to underlying infection, viral versus bacterial. No significant improvement in symptoms over the past 24 hours -Prednisone 40 mg twice daily -Nebulizer therapy -Saline lock IV -Doxycycline 100 mg po every 12 hours -Supplemental oxygen as needed, maintain O2 sats in the range of 80-92% SEVERE COPD -Management as above ANXIETY -continue anxiety medication -Ativan IV 1 mg given in ER -Oxygen per nasal cannula LONG-TERM ORAL ANTICOAGULATION WITH WARFARIN-INR supratherapeutic today -Warfarin 2.5 mg by mouth today -Recheck INR in a.m. Maintenance issues -Nutrition: Regular diet -Nunez catheter not indicated at this time -DVT: Current therapy with warfarin should provide adequate DVT prophylaxis -GI prophaxis; Prontinxix 20mg daily CODE STATUS: Full Admission status: Admit to ICU Med overflow Admission justification. This patient will be admitted for inpatient services and is medically appropriate meeting medical necessity for inpatient admission as outlined in my documentation. I reasonably expect the patient will require inpatient services that span. Time over 2 midnights. I reasonably expect this patient to be discharged or transferred within 96 hours after admission to the critical access hospital. Disposition;Longterm resident Primary care provider: Dr. Rosario
[2016-04-19] MEDS ORDERED: Warfarin 2.5 MG Tab PO ONE (15:00)
[2016-04-19] MEDS ORDERED: Bumetanide 1 MG Tab PO ONE (15:00)
[2016-04-19] MEDS ORDERED: Simethicone 80 MG Tab.Chew PO PRN (16:13)
[2016-04-19] MEDS ORDERED: Alum Hydrox/Mag Hydrox/Simeth 15 ML, Lidocaine 2% 15 ML PO ONE ×2 (16:14)
[2016-04-19] MEDS: rOPINIRole 1 MG Tab PO SCH (20:47)
[2016-04-19] MEDS: Mirtazapine 15 MG Tab PO SCH (20:48)
[2016-04-19] MEDS: LORazepam 1 MG Tab PO PRN (20:48)
[2016-04-20] MEDS: Doxycycline 100 MG Cap PO SCH ×2 (05:35→16:31)
[2016-04-20] MEDS: Albuterol/Ipratropium 3.0-0.5 MG/3 ML Neb Soln NEB PRN ×3 (05:37→18:09)
[2016-04-20] MEDS: Nystatin Susp 100,000 Unit/ML 5 ML UD Cup PO SCH ×4 (06:19→21:19)
[2016-04-20] MEDS: LORazepam 1 MG Tab PO PRN ×3 (06:19→18:06)
[2016-04-20] MEDS: predniSONE 20 MG Tab PO SCH ×2 (07:35→18:05)
[2016-04-20] MEDS: Carvedilol 12.5 MG Tab PO SCH ×2 (07:36→18:06)
[2016-04-20] MEDS: Tiotropium Inhaler 18 MCG Inhalation Powder Cap Kit of 5 INH SCH (07:49)
[2016-04-20] MEDS: Budesonide 0.5 MG/2 ML Neb Susp NEB SCH ×2 (07:49→20:41)
[2016-04-20] MEDS ORDERED: Bumetanide 1 MG Tab PO SCH (08:00)
[2016-04-20] MEDS: Insulin Aspart 100 Units/ML 3 ML Pen SUBCUT SCH ×4 (08:44→21:17)
[2016-04-20] MEDS: Oxymetazoline 0.05% Nasal Spray 15 ML Bottle NAS SCH ×2 (08:48→20:41)
[2016-04-20] MEDS: Diltiazem 180 MG Cap.CD PO SCH (08:49)
[2016-04-20] MEDS: busPIRone 10 MG Tab PO SCH ×3 (08:49→20:42)
[2016-04-20] MEDS: Famotidine 20 MG Tab PO SCH (08:50)
[2016-04-20] MEDS: Lactobacillus Rhamnosus GG (Probiotic) Cap PO SCH (08:50)
[2016-04-20] MEDS: Citalopram 20 MG Tab PO SCH (08:50)
[2016-04-20] MEDS: Aspirin 81 MG Tab.EC PO SCH (08:51)
[2016-04-20] MEDS: Calcitonin (Salmon) Nasal Spray 3.7 ML Bottle NAS SCH (08:53)
[2016-04-20] MEDS: guaiFENesin 600 MG Tab.ER PO SCH ×2 (08:54→20:42)
[2016-04-20] MEDS: Polyethylene Glycol 3350 Powder 17 GM Packet PO SCH (08:54)
[2016-04-20] MEDS: Mometasone Furoate Nasal Spray 17 GM Canister NAS SCH ×2 (08:55→20:41)
[2016-04-20] MEDS ORDERED: Potassium Chloride 20 MEQ Tab.ER PO ONE (09:00)
[2016-04-20] MEDS: Morphine 15 MG Tab.ER PO SCH ×2 (11:36→22:41)
--- NOTE | 2016-04-20 13:24 | PCM.PN ---
- General Info Date of Service: 04/20/16 Functional Status: Reports: tolerating diet, ambulating - Review of Systems General: Reports: weakness. Denies: fever, chills Pulmonary: Reports: shortness of breath, cough, sputum. Denies: pleuritic chest pain, hemoptysis, wheezing Cardiovascular: Reports: dyspnea on exertion, edema. Denies: chest pain, palpitations, orthopnea, PND, lightheadedness Gastrointestinal: Reports: No symptoms Systems Review Comment:: Zhane is been stable since yesterday, still reports significant shortness of breath with relatively minimal exertion. Vital signs have been stable and she has remained afebrile. Significant improvement in peripheral edema with diuretic therapy. - Patient Data Vitals - most recent: Last Vital Signs Temp 98.1 F 04/20/16 11:00 Pulse 82 04/20/16 11:37 Resp 16 04/20/16 07:05 BP 157/75 H 04/20/16 11:37 Pulse Ox 99 04/20/16 07:42 Weight - most recent: 163 lb 6.4 oz I&O - last 24 hours: Intake & Output 04/19/16 04/20/16 04/20/16 21:59 06:59 14:59 Intake Total 350 Output Total 2200 Balance -1850 Lab Results last 24 hrs: Laboratory Results - last 24 hr 04/20/16 04/20/16 04/20/16 Range/Units 05:00 05:00 05:00 WBC 12.7 H (4.5-11.0) K/uL RBC 3.98 (3.30-5.50) M/uL Hgb 12.4 D (12.0-15.0) g/dL Hct 39.3 (36.0-48.0) % MCV 99 H (80-98) fL MCH 31 (27-31) pg MCHC 32 (32-36) % Plt Count 303 (150-400) K/uL Add Manual Diff Yes Neutrophils % (Manual) 85 H (36-66) % Lymphocytes % (Manual) 5 L (24-44) % Monocytes % (Manual) 10 H (2-6) % PT 26.6 H (9.5-12.0) sec INR 2.44 H (0.80-1.20) Sodium 142 (140-148) mmol/L Potassium 3.5 L (3.6-5.2) mmol/L Chloride 101 (100-108) mmol/L Carbon Dioxide 36 H (21-32) mmol/L Anion Gap 8.5 (5.0-14.0) mmol/L BUN 41 H (7-18) mg/dL Creatinine 1.3 H (0.6-1.0) mg/dL Est Cr Clr Drug Dosing 31.72 mL/min Estimated GFR (MDRD) 41 L (>60) Glucose 154 H (74-106) mg/dL Calcium 7.6 L (8.5-10.1) mg/dL Magnesium 2.0 (1.8-2.4) mg/dL Med Orders - Current: Current Medications Albuterol (Proventil Neb Soln) 2.5 mg NEB Q4H PRN PRN Reason: Shortness Of Breath/wheezing Last Admin: 04/18/16 11:55 Dose: 2.5 mg Albuterol/Ipratropium (Duoneb 3.0-0.5 Mg/3 Ml) 3 ml NEB QIDRT PRN PRN Reason: Dyspnea Last Admin: 04/20/16 10:16 Dose: 3 ml Alprazolam (Xanax) 0.25 mg PO BID PRN PRN Reason: panic attack Last Admin: 04/18/16 08:10 Dose: 0.25 mg Aspirin (Halfprin) 81 mg PO DAILY [facility] Last Admin: 04/20/16 08:51 Dose: 81 mg Bisacodyl (Dulcolax) 5 mg PO DAILY PRN PRN Reason: Constipation Last Admin: 04/16/16 08:26 Dose: 5 mg Budesonide (Pulmicort) 0.5 mg NEB BIDRT [facility] Last Admin: 04/20/16 07:49 Dose: 0.5 mg Bumetanide (Bumex) 4 mg PO DAILY [facility] Buspirone HCl (Buspar) 20 mg PO TID [facility] Last Admin: 04/20/16 08:49 Dose: 20 mg Calcitonin [place] (Miacalcin Nasal [place]) 0 ml ADRIANNA DAILY [facility] Last Admin: 04/20/16 08:53 Dose: 1 spray Carvedilol (Coreg) 12.5 mg PO BIDMEALS [facility] Last Admin: 04/20/16 07:36 Dose: 12.5 mg Citalopram Hydrobromide (Celexa) 20 mg PO DAILY [facility] Last Admin: 04/20/16 08:50 Dose: 20 mg Diltiazem HCl (Cardizem Cd) 180 mg PO DAILY [facility] Last Admin: 04/20/16 08:49 Dose: 180 mg Docusate Sodium (Colace) 100 mg PO BID PRN PRN Reason: Constipation Last Admin: 04/17/16 08:14 Dose: 100 mg Doxycycline Hyclate (Vibramycin) 100 mg PO Q12H [facility] Last Admin: 04/20/16 05:35 Dose: 100 mg Famotidine (Pepcid) 20 mg PO DAILY [facility] Last Admin: 04/20/16 08:50 Dose: 20 mg Guaifenesin (Mucinex) 600 mg PO BID [facility] Last Admin: 04/20/16 08:54 Dose: 600 mg Insulin Aspart (Novolog) 0 unit SUBCUT ASDIRECTED [facility] PRN Reason: Protocol Last Admin: 04/20/16 11:40 Dose: 2 unit Lactobacillus Rhamnosus (Culturelle) 2 cap PO DAILY [facility] Last Admin: 04/20/16 08:50 Dose: 2 cap Lorazepam (Ativan) 1 mg IVPUSH Q2H PRN PRN Reason: Anxiety Last Admin: 04/17/16 08:01 Dose: 1 mg Lorazepam (Ativan) 1 mg PO Q4H PRN PRN Reason: Anxiety Last Admin: 04/20/16 10:35 Dose: 1 mg Mirtazapine (Remeron) 22.5 mg PO BEDTIME [facility] Last Admin: 04/19/16 20:48 Dose: 22.5 mg Mometasone Furoate (Nasonex [place]) 0 gm ADRIANNA BID [facility] Last Admin: 04/20/16 08:55 Dose: Not Given Morphine Sulfate (Ms Contin) 15 mg PO Q12H [facility] Last Admin: 04/20/16 11:36 Dose: 15 mg Nitroglycerin (Nitrostat) 0.4 mg SL DAILY PRN PRN Reason: Chest Pain Nystatin (Mycostatin) 5 ml PO QID [facility] Last Admin: 04/20/16 09:29 Dose: 5 ml Ondansetron HCl (Zofran) 4 mg IV Q4H PRN PRN Reason: Nausea/Vomiting Oxycodone HCl (Oxycodone) 10 mg PO BID PRN PRN Reason: Pain Oxymetazoline HCl (Afrin Original 0.05% Nasal [place]) 0 ml ADRIANNA BID [facility] Last Admin: 04/20/16 08:48 Dose: Not Given Polyethylene Glycol (Miralax) 17 gm PO DAILY [facility] Last Admin: 04/20/16 08:54 Dose: Not Given Prednisone (Prednisone) 40 mg PO BIDMEALS [facility] Last Admin: 04/20/16 07:35 Dose: 40 mg Ropinirole HCl (Requip) 1 mg PO BEDTIME [facility] Last Admin: 04/19/16 20:47 Dose: 1 mg Senna/Docusate Sodium (Senna Plus) 1 tab PO BID [facility] Last Admin: 04/20/16 08:56 Dose: 1 tab Simethicone (Simethicone) 80 mg PO Q4H PRN PRN Reason: Heartburn Tiotropium [place] (Spiriva Handihaler) 18 mcg INH DAILYRT [facility] Last Admin: 04/20/16 07:49 Dose: 18 mcg Triamcinolone Acetonide (Triamcinolone Acetonide 0.1% Crm) 0 gm TOP DAILY PRN PRN Reason: Rash Last Admin: 04/15/16 21:35 Dose: 1 applic Warfarin Sodium (Coumadin) 5 mg PO DAILY@1300 [facility] Zolpidem Tartrate (Ambien) 5 mg PO BEDTIME PRN PRN Reason: Sleep Discontinued Medications Albuterol/Ipratropium (Duoneb 3.0-0.5 Mg/3 Ml) 3 ml NEB QID PRN PRN Reason: Shortness Of Breath/wheezing Last Admin: 04/14/16 19:20 Dose: 3 ml Albuterol/Ipratropium (Duoneb 3.0-0.5 Mg/3 Ml) 3 ml NEB QIDRT [facility] Last Admin: 04/17/16 10:37 Dose: 3 ml Arformoterol Tartrate (Brovana) 15 mcg NEB BIDRT [facility] Last Admin: 04/17/16 07:35 Dose: 15 mcg Bumetanide (Bumex) 1 mg PO BID [facility] Last Admin: 04/18/16 08:41 Dose: 1 mg Bumetanide (Bumex) 2 mg PO BID@0800,1400 [facility] Last Admin: 04/19/16 14:20 Dose: 2 mg Bumetanide (Bumex) 4 mg PO BID@0800,1400 [facility] Last Admin: 04/20/16 07:34 Dose: 4 mg Bumetanide (Bumex) 2 mg PO ONETIME ONE Stop: 04/19/16 15:01 Last Admin: 04/19/16 15:58 Dose: 2 mg Al Hydroxide/Mg Hydroxide 15 (ml/ Lidocaine HCl 15 ml) 0 ml PO ONETIME ONE Stop: 04/19/16 16:15 Last Admin: 04/19/16 16:58 Dose: 30 ml Docusate Sodium (Colace) 100 mg PO BID [facility] Last Admin: 04/15/16 08:16 Dose: 100 mg Levofloxacin/Dextrose 500 mg/ (Premix) 100 mls @ 100 mls/hr IV Q24H [facility] Last Admin: 04/15/16 23:28 Dose: 100 mls/hr Sodium Chloride (Normal Saline) 1,000 mls @ 75 mls/hr IV ASDIRECTED [facility] Doxycycline Hyclate 100 mg/ (Sodium Chloride) 100 mls @ 100 mls/hr IV Q12H [facility] Last Admin: 04/18/16 03:43 Dose: 100 mls/hr Sodium Chloride (Normal Saline) 1,000 mls @ 50 mls/hr IV ASDIRECTED [facility] Last Admin: 04/16/16 22:29 Dose: 50 mls/hr Insulin Aspart (Novolog) 6 unit SUBCUT ONETIME ONE Stop: 04/16/16 08:01 Last Admin: 04/16/16 08:13 Dose: 6 units Lorazepam (Ativan) 1 mg IVPUSH ONETIME ONE Stop: 04/13/16 22:03 Last Admin: 04/13/16 22:19 Dose: 1 mg Lorazepam (Ativan) 2 mg IVPUSH ONETIME ONE Stop: 04/14/16 02:09 Last Admin: 04/14/16 02:08 Dose: 2 mg Methylprednisolone Sodium Succinate (Solu-Medrol) 125 mg IVPUSH Q6H [facility] Last Admin: 04/14/16 05:31 Dose: 125 mg Methylprednisolone Sodium Succinate (Solu-Medrol) 40 mg IVPUSH Q6H [facility] Last Admin: 04/18/16 17:15 Dose: Not Given Potassium Chloride (Klor-Con M20) 20 meq PO BID [facility] Last Admin: 04/14/16 08:15 Dose: 20 meq Potassium Chloride (Klor-Con M20) 40 meq PO ONETIME ONE Stop: 04/20/16 09:01 Last Admin: 04/20/16 08:52 Dose: 40 meq Sodium Biphosphate/Sodium Phosphate (Fleet Enema) 133 ml RECTAL ONETIME ONE Stop: 04/16/16 08:47 Last Admin: 04/16/16 10:23 Dose: 133 ml Warfarin Sodium (Coumadin) 5 mg PO MoFr@1300 [facility] Last Admin: 04/14/16 13:46 Dose: 5 mg Warfarin Sodium (Coumadin) 7.5 mg PO SuTuWeThSa@1300 [facility] Warfarin Sodium (Coumadin) 2.5 mg PO ONETIME ONE Stop: 04/15/16 13:01 Last Admin: 04/15/16 13:31 Dose: Not Given Warfarin Sodium (Coumadin) 2.5 mg PO ONETIME ONE Stop: 04/15/16 16:01 Last Admin: 04/15/16 16:05 Dose: 2.5 mg Warfarin Sodium (Coumadin) 5 mg PO ONETIME ONE Stop: 04/16/16 16:01 Last Admin: 04/16/16 15:59 Dose: 5 mg Warfarin Sodium (Coumadin) 7.5 mg PO ONETIME ONE Stop: 04/17/16 13:01 Last Admin: 04/17/16 13:43 Dose: 7.5 mg Warfarin Sodium (Coumadin) 5 mg PO ONETIME ONE Stop: 04/18/16 16:01 Last Admin: 04/18/16 15:31 Dose: 5 mg Warfarin Sodium (Coumadin) 2.5 mg PO ONETIME ONE Stop: 04/19/16 15:01 Last Admin: 04/19/16 15:57 Dose: 2.5 mg - Exam Quality Assessment: supplemental oxygen, DVT prophylaxis General: alert, oriented, cooperative, mild distress Lungs: Decreased breath sounds. No: Crackles, Rales, Rhonchi, Rub, Stridor, Wheezing Cardiovascular: regular rate, regular rhythm, no murmurs Abdomen: bowel sounds present, soft, no tenderness, no distension Extremities: edema Skin: warm, dry, intact - Problem List Review Problem List Initiated/Reviewed/Updated: Yes - My Orders Last 24 Hours: My Active Orders 04/19/16 16:13 Simethicone 80 mg PO Q4H PRN 04/20/16 16:30 GLUCOSE POC LAB TO COLLECT [POC] QIDACANDBED 04/20/16 21:00 GLUCOSE POC LAB TO COLLECT [POC] QIDACANDBED 04/21/16 05:00 BASIC METABOLIC PANEL,BMP [CHEM] Timed INR,PT,PROTHROMBIN TIME [COAG] Timed 04/21/16 07:30 GLUCOSE POC LAB TO COLLECT [POC] QIDACANDBED 04/21/16 09:00 Bumetanide [Bumex] 4 mg PO DAILY 04/21/16 11:30 GLUCOSE POC LAB TO COLLECT [POC] QIDACANDBED 04/21/16 13:00 Warfarin [Coumadin] 5 mg PO DAILY@1300 04/21/16 16:30 GLUCOSE POC LAB TO COLLECT [POC] QIDACANDBED 04/21/16 21:00 GLUCOSE POC LAB TO COLLECT [POC] QIDACANDBED 04/22/16 07:30 GLUCOSE POC LAB TO COLLECT [POC] QIDACANDBED 04/22/16 11:30 GLUCOSE POC LAB TO COLLECT [POC] QIDACANDBED 04/22/16 16:30 GLUCOSE POC LAB TO COLLECT [POC] QIDACANDBED 04/22/16 21:00 GLUCOSE POC LAB TO COLLECT [POC] QIDACANDBED 04/23/16 07:30 GLUCOSE POC LAB TO COLLECT [POC] QIDACANDBED 04/23/16 11:30 GLUCOSE POC LAB TO COLLECT [POC] QIDACANDBED 04/23/16 16:30 GLUCOSE POC LAB TO COLLECT [POC] QIDACANDBED 04/23/16 21:00 GLUCOSE POC LAB TO COLLECT [POC] QIDACANDBED - Plan Plan:: ASSESSMENT / PLAN ACUTE ON CHRONIC HYPERCAPNIC AND HYPOXIC RESPIRATORY FAILURE-likely secondary to underlying infection, most likely viral given prolonged duration of symptoms -Prednisone 40 mg twice daily -Nebulizer therapy -Saline lock IV -Doxycycline 100 mg po every 12 hours -Supplemental oxygen as needed, maintain O2 sats in the range of 80-92% SEVERE COPD -Management as above ANXIETY -continue anxiety medication -Oxygen per nasal cannula LONG-TERM ORAL ANTICOAGULATION WITH WARFARIN-INR within therapeutic range today -Warfarin 5 mg by mouth daily -Recheck INR in a.m. Maintenance issues -Nutrition: Regular diet -Nunez catheter not indicated at this time -DVT: Current therapy with warfarin should provide adequate DVT prophylaxis -GI prophaxis; Prontinxix 20mg daily CODE STATUS: Full Admission status: Admission justification. This patient will be admitted for inpatient services and is medically appropriate meeting medical necessity for inpatient admission as outlined in my documentation. I reasonably expect the patient will require inpatient services that span. Time over 2 midnights. I reasonably expect this patient to be discharged or transferred within 96 hours after admission to the [facility]. Disposition;[facility] resident, anticipate discharge back to [facility] after her hospital stay Primary care provider: Dr. Rosario
[2016-04-20] MEDS: Warfarin 5 MG Tab PO SCH (13:51)
[2016-04-20] MEDS: Mirtazapine 15 MG Tab PO SCH (20:42)
[2016-04-20] MEDS: rOPINIRole 1 MG Tab PO SCH (20:43)
[2016-04-21] MEDS: Albuterol/Ipratropium 3.0-0.5 MG/3 ML Neb Soln NEB PRN ×3 (01:19→19:42)
[2016-04-21] MEDS: LORazepam 1 MG Tab PO PRN ×3 (01:19→19:42)
[2016-04-21] MEDS: Doxycycline 100 MG Cap PO SCH ×2 (04:37→16:51)
[2016-04-21] MEDS: Nystatin Susp 100,000 Unit/ML 5 ML UD Cup PO SCH ×4 (05:59→21:02)
[2016-04-21] MEDS: Budesonide 0.5 MG/2 ML Neb Susp NEB SCH ×2 (07:21→21:02)
[2016-04-21] MEDS: Tiotropium Inhaler 18 MCG Inhalation Powder Cap Kit of 5 INH SCH (07:23)
[2016-04-21] MEDS: Carvedilol 12.5 MG Tab PO SCH ×2 (08:11→16:49)
[2016-04-21] MEDS: predniSONE 20 MG Tab PO SCH (08:12)
[2016-04-21] MEDS: guaiFENesin 600 MG Tab.ER PO SCH ×2 (08:13→21:03)
[2016-04-21] MEDS: Oxymetazoline 0.05% Nasal Spray 15 ML Bottle NAS SCH ×2 (08:13→21:03)
[2016-04-21] MEDS: Mometasone Furoate Nasal Spray 17 GM Canister NAS SCH ×2 (08:13→21:02)
[2016-04-21] MEDS: Aspirin 81 MG Tab.EC PO SCH (08:14)
[2016-04-21] MEDS: Diltiazem 180 MG Cap.CD PO SCH (08:14)
[2016-04-21] MEDS: busPIRone 10 MG Tab PO SCH ×3 (08:14→21:04)
[2016-04-21] MEDS: Bumetanide 1 MG Tab PO SCH (08:15)
[2016-04-21] MEDS: Lactobacillus Rhamnosus GG (Probiotic) Cap PO SCH (08:15)
[2016-04-21] MEDS: Citalopram 20 MG Tab PO SCH (08:16)
[2016-04-21] MEDS: Famotidine 20 MG Tab PO SCH (08:16)
[2016-04-21] MEDS: Polyethylene Glycol 3350 Powder 17 GM Packet PO SCH (08:18)
[2016-04-21] MEDS: Calcitonin (Salmon) Nasal Spray 3.7 ML Bottle NAS SCH (08:19)
--- NOTE | 2016-04-21 12:31 | PCM.PN ---
- General Info Date of Service: 04/21/16 Functional Status: Reports: pain controlled, tolerating diet, ambulating - Review of Systems General: Reports: weakness Pulmonary: Reports: shortness of breath, cough Systems Review Comment:: no acute events overnight. Tolerated the transition to oral medications. No fevers. Has a dry loose but nonproductive cough. Still very short of breath with any activity and more so than baseline. Appetite has not been good. Good response to diuresis. - Patient Data Vitals - most recent: Last Vital Signs Temp 36.6 C 04/21/16 11:22 Pulse 85 04/21/16 11:22 Resp 16 04/21/16 11:22 BP 148/52 H 04/21/16 11:22 Pulse Ox 94 L 04/21/16 11:22 Weight - most recent: 71.532 kg I&O - last 24 hours: Intake & Output 04/20/16 04/21/16 04/21/16 22:59 06:59 14:59 Intake Total 360 Output Total 300 400 Balance -300 -400 360 Lab Results last 24 hrs: Laboratory Results - last 24 hr 04/21/16 04/21/16 Range/Units 05:59 05:59 PT 29.1 H (9.5-12.0) sec INR 2.66 H (0.80-1.20) Sodium 142 (140-148) mmol/L Potassium 3.9 (3.6-5.2) mmol/L Chloride 102 (100-108) mmol/L Carbon Dioxide 35 H (21-32) mmol/L Anion Gap 8.9 (5.0-14.0) mmol/L BUN 40 H (7-18) mg/dL Creatinine 1.2 H (0.6-1.0) mg/dL Est Cr Clr Drug Dosing 34.37 mL/min Estimated GFR (MDRD) 45 L (>60) Glucose 152 H (74-106) mg/dL Calcium 8.2 L (8.5-10.1) mg/dL Med Orders - Current: Current Medications Albuterol (Proventil Neb Soln) 2.5 mg NEB Q4H PRN PRN Reason: Shortness Of Breath/wheezing Last Admin: 04/18/16 11:55 Dose: 2.5 mg Albuterol/Ipratropium (Duoneb 3.0-0.5 Mg/3 Ml) 3 ml NEB QIDRT PRN PRN Reason: Dyspnea Last Admin: 04/21/16 01:19 Dose: 3 ml Alprazolam (Xanax) 0.25 mg PO BID PRN PRN Reason: panic attack Last Admin: 04/18/16 08:10 Dose: 0.25 mg Aspirin (Halfprin) 81 mg PO DAILY [facility] Last Admin: 04/21/16 08:14 Dose: 81 mg Bisacodyl (Dulcolax) 5 mg PO DAILY PRN PRN Reason: Constipation Last Admin: 04/16/16 08:26 Dose: 5 mg Budesonide (Pulmicort) 0.5 mg NEB BIDRT [facility] Last Admin: 04/21/16 07:21 Dose: 0.5 mg Bumetanide (Bumex) 4 mg PO DAILY [facility] Last Admin: 04/21/16 08:15 Dose: 4 mg Buspirone HCl (Buspar) 20 mg PO TID [facility] Last Admin: 04/21/16 08:14 Dose: 20 mg Calcitonin [place] (Miacalcin Nasal [place]) 0 ml ADRIANNA DAILY [facility] Last Admin: 04/21/16 08:19 Dose: 1 spray Carvedilol (Coreg) 12.5 mg PO BIDMEALS [facility] Last Admin: 04/21/16 08:11 Dose: 12.5 mg Citalopram Hydrobromide (Celexa) 20 mg PO DAILY [facility] Last Admin: 04/21/16 08:16 Dose: 20 mg Diltiazem HCl (Cardizem Cd) 180 mg PO DAILY [facility] Last Admin: 04/21/16 08:14 Dose: 180 mg Docusate Sodium (Colace) 100 mg PO BID PRN PRN Reason: Constipation Last Admin: 04/17/16 08:14 Dose: 100 mg Doxycycline Hyclate (Vibramycin) 100 mg PO Q12H [facility] Last Admin: 04/21/16 04:37 Dose: 100 mg Famotidine (Pepcid) 20 mg PO DAILY [facility] Last Admin: 04/21/16 08:16 Dose: 20 mg Guaifenesin (Mucinex) 600 mg PO BID [facility] Last Admin: 04/21/16 08:13 Dose: 600 mg Insulin Aspart (Novolog) 0 unit SUBCUT ASDIRECTED [facility] PRN Reason: Protocol Last Admin: 04/20/16 21:17 Dose: 3 unit Lactobacillus Rhamnosus (Culturelle) 2 cap PO DAILY [facility] Last Admin: 04/21/16 08:15 Dose: 2 cap Lorazepam (Ativan) 1 mg PO Q4H PRN PRN Reason: Anxiety Last Admin: 04/21/16 08:25 Dose: 1 mg Mirtazapine (Remeron) 22.5 mg PO BEDTIME [facility] Last Admin: 04/20/16 20:42 Dose: 22.5 mg Mometasone Furoate (Nasonex [place]) 0 gm ADRIANNA BID [facility] Last Admin: 04/21/16 08:13 Dose: 1 spr Morphine Sulfate (Ms Contin) 15 mg PO Q12H [facility] Last Admin: 04/20/16 22:41 Dose: 15 mg Nitroglycerin (Nitrostat) 0.4 mg SL DAILY PRN PRN Reason: Chest Pain Nystatin (Mycostatin) 5 ml PO QID [facility] Last Admin: 04/21/16 05:59 Dose: Not Given Ondansetron HCl (Zofran) 4 mg IV Q4H PRN PRN Reason: Nausea/Vomiting Oxycodone HCl (Oxycodone) 10 mg PO BID PRN PRN Reason: Pain Oxymetazoline HCl (Afrin Original 0.05% Nasal [place]) 0 ml ADRIANNA BID [facility] Last Admin: 04/21/16 08:13 Dose: 1 spray Polyethylene Glycol (Miralax) 17 gm PO DAILY [facility] Last Admin: 04/21/16 08:18 Dose: 17 gm Prednisone (Prednisone) 30 mg PO BIDAC [facility] Ropinirole HCl (Requip) 1 mg PO BEDTIME [facility] Last Admin: 04/20/16 20:43 Dose: 1 mg Senna/Docusate Sodium (Senna Plus) 1 tab PO BID [facility] Last Admin: 04/21/16 08:14 Dose: 1 tab Simethicone (Simethicone) 80 mg PO Q4H PRN PRN Reason: Heartburn Tiotropium [place] (Spiriva Handihaler) 18 mcg INH DAILYRT [facility] Last Admin: 04/21/16 07:23 Dose: 18 mcg Triamcinolone Acetonide (Triamcinolone Acetonide 0.1% Crm) 0 gm TOP DAILY PRN PRN Reason: Rash Last Admin: 04/15/16 21:35 Dose: 1 applic Warfarin Sodium (Coumadin) 5 mg PO DAILY@1300 [facility] Last Admin: 04/20/16 13:51 Dose: 5 mg Zolpidem Tartrate (Ambien) 5 mg PO BEDTIME PRN PRN Reason: Sleep Discontinued Medications Albuterol/Ipratropium (Duoneb 3.0-0.5 Mg/3 Ml) 3 ml NEB QID PRN PRN Reason: Shortness Of Breath/wheezing Last Admin: 04/14/16 19:20 Dose: 3 ml Albuterol/Ipratropium (Duoneb 3.0-0.5 Mg/3 Ml) 3 ml NEB QIDRT [facility] Last Admin: 04/17/16 10:37 Dose: 3 ml Arformoterol Tartrate (Brovana) 15 mcg NEB BIDRT [facility] Last Admin: 04/17/16 07:35 Dose: 15 mcg Bumetanide (Bumex) 1 mg PO BID [facility] Last Admin: 04/18/16 08:41 Dose: 1 mg Bumetanide (Bumex) 2 mg PO BID@0800,1400 [facility] Last Admin: 04/19/16 14:20 Dose: 2 mg Bumetanide (Bumex) 4 mg PO BID@0800,1400 [facility] Last Admin: 04/20/16 07:34 Dose: 4 mg Bumetanide (Bumex) 2 mg PO ONETIME ONE Stop: 04/19/16 15:01 Last Admin: 04/19/16 15:58 Dose: 2 mg Al Hydroxide/Mg Hydroxide 15 (ml/ Lidocaine HCl 15 ml) 0 ml PO ONETIME ONE Stop: 04/19/16 16:15 Last Admin: 04/19/16 16:58 Dose: 30 ml Docusate Sodium (Colace) 100 mg PO BID [facility] Last Admin: 04/15/16 08:16 Dose: 100 mg Levofloxacin/Dextrose 500 mg/ (Premix) 100 mls @ 100 mls/hr IV Q24H [facility] Last Admin: 04/15/16 23:28 Dose: 100 mls/hr Sodium Chloride (Normal Saline) 1,000 mls @ 75 mls/hr IV ASDIRECTED [facility] Doxycycline Hyclate 100 mg/ (Sodium Chloride) 100 mls @ 100 mls/hr IV Q12H [facility] Last Admin: 04/18/16 03:43 Dose: 100 mls/hr Sodium Chloride (Normal Saline) 1,000 mls @ 50 mls/hr IV ASDIRECTED [facility] Last Admin: 04/16/16 22:29 Dose: 50 mls/hr Insulin Aspart (Novolog) 6 unit SUBCUT ONETIME ONE Stop: 04/16/16 08:01 Last Admin: 04/16/16 08:13 Dose: 6 units Lorazepam (Ativan) 1 mg IVPUSH ONETIME ONE Stop: 04/13/16 22:03 Last Admin: 04/13/16 22:19 Dose: 1 mg Lorazepam (Ativan) 2 mg IVPUSH ONETIME ONE Stop: 04/14/16 02:09 Last Admin: 04/14/16 02:08 Dose: 2 mg Lorazepam (Ativan) 1 mg IVPUSH Q2H PRN PRN Reason: Anxiety Last Admin: 04/17/16 08:01 Dose: 1 mg Methylprednisolone Sodium Succinate (Solu-Medrol) 125 mg IVPUSH Q6H [facility] Last Admin: 04/14/16 05:31 Dose: 125 mg Methylprednisolone Sodium Succinate (Solu-Medrol) 40 mg IVPUSH Q6H [facility] Last Admin: 04/18/16 17:15 Dose: Not Given Potassium Chloride (Klor-Con M20) 20 meq PO BID [facility] Last Admin: 04/14/16 08:15 Dose: 20 meq Potassium Chloride (Klor-Con M20) 40 meq PO ONETIME ONE Stop: 04/20/16 09:01 Last Admin: 04/20/16 08:52 Dose: 40 meq Prednisone (Prednisone) 40 mg PO BIDMEALS [facility] Last Admin: 04/21/16 08:12 Dose: 40 mg Sodium Biphosphate/Sodium Phosphate (Fleet Enema) 133 ml RECTAL ONETIME ONE Stop: 04/16/16 08:47 Last Admin: 04/16/16 10:23 Dose: 133 ml Warfarin Sodium (Coumadin) 5 mg PO MoFr@1300 [facility] Last Admin: 04/14/16 13:46 Dose: 5 mg Warfarin Sodium (Coumadin) 7.5 mg PO SuTuWeThSa@1300 [facility] Warfarin Sodium (Coumadin) 2.5 mg PO ONETIME ONE Stop: 04/15/16 13:01 Last Admin: 04/15/16 13:31 Dose: Not Given Warfarin Sodium (Coumadin) 2.5 mg PO ONETIME ONE Stop: 04/15/16 16:01 Last Admin: 04/15/16 16:05 Dose: 2.5 mg Warfarin Sodium (Coumadin) 5 mg PO ONETIME ONE Stop: 04/16/16 16:01 Last Admin: 04/16/16 15:59 Dose: 5 mg Warfarin Sodium (Coumadin) 7.5 mg PO ONETIME ONE Stop: 04/17/16 13:01 Last Admin: 04/17/16 13:43 Dose: 7.5 mg Warfarin Sodium (Coumadin) 5 mg PO ONETIME ONE Stop: 04/18/16 16:01 Last Admin: 04/18/16 15:31 Dose: 5 mg Warfarin Sodium (Coumadin) 2.5 mg PO ONETIME ONE Stop: 04/19/16 15:01 Last Admin: 04/19/16 15:57 Dose: 2.5 mg - Exam Quality Assessment: supplemental oxygen General: alert, oriented, cooperative, no acute distress Neck: supple Lungs: Clear to auscultation, Normal respiratory effort, Rales (rare left lung base) Cardiovascular: regular rate, regular rhythm, murmurs Abdomen: soft, no distension Extremities: no cyanosis, edema (mild pitting edema both lower legs below the knee) Skin: warm, dry Psy/Mental Status: alert, normal affect - Problem List Review Problem List Initiated/Reviewed/Updated: Yes - My Orders Last 24 Hours: My Active Orders 04/21/16 12:29 Communication Order [RC] ROUTINE Up With Assistance [RC] ASDIRECTED 04/21/16 16:30 predniSONE 30 mg PO BIDAC 04/22/16 05:00 BASIC METABOLIC PANEL,BMP [CHEM] Timed CBC W/O DIFF,HEMOGRAM [HEME] Timed (1) INR,PT,PROTHROMBIN TIME [COAG] Timed - Plan Plan:: ASSESSMENT / PLAN ACUTE ON CHRONIC HYPERCAPNIC AND HYPOXIC RESPIRATORY FAILURE - likely secondary to underlying infection, most likely viral given prolonged duration of symptoms. Slow but steady clinical improvement. lower extremity edema much better with diuresis. -start prednisone taper ( 30 mg twice daily for 3 days then 20 mg twice daily for 3 days then decrease by 10 mg thereafter) -Nebulizer therapy -Saline lock IV -Doxycycline 100 mg po every 12 hours -Supplemental oxygen as needed, maintain O2 sats in the range of 88-92% SEVERE COPD - back to baseline level of supplemental oxygen but still short of breath with activity. -Management as above ANXIETY - generalized anxiety seems to be stable at this time. -continue anxiety medication -Oxygen per nasal cannula Stage III chronic kidney disease - kidney function is at baseline at this time. LONG-TERM ORAL ANTICOAGULATION WITH WARFARIN - INR within therapeutic range today -Warfarin 5 mg by mouth daily -Recheck INR in a.m. Maintenance issues -Nutrition: Regular diet -Nunez catheter not indicated at this time -DVT: Current therapy with warfarin should provide adequate DVT prophylaxis -GI prophaxis; Prontinxix 20mg daily Disposition - anticipate discharge back to [facility] after her hospital stay , very likely tomorrow Chester Morse M.D.
[2016-04-21] MEDS: Warfarin 5 MG Tab PO SCH (13:04)
[2016-04-21] MEDS: Insulin Aspart 100 Units/ML 3 ML Pen SUBCUT SCH ×2 (13:04→21:00)
[2016-04-21] MEDS: Morphine 15 MG Tab.ER PO SCH ×2 (13:04→22:34)
[2016-04-21] MEDS: predniSONE 10 MG Tab PO SCH (16:50)
[2016-04-21] MEDS: Mirtazapine 15 MG Tab PO SCH (21:04)
[2016-04-21] MEDS: rOPINIRole 1 MG Tab PO SCH (21:04)
[2016-04-22] MEDS: Doxycycline 100 MG Cap PO SCH (04:34)
[2016-04-22] MEDS: Albuterol/Ipratropium 3.0-0.5 MG/3 ML Neb Soln NEB PRN ×2 (04:42→10:50)
[2016-04-22] MEDS: Nystatin Susp 100,000 Unit/ML 5 ML UD Cup PO SCH ×2 (05:21→09:06)
[2016-04-22 07:20] VITALS: BP 144/67
[2016-04-22] MEDS: Budesonide 0.5 MG/2 ML Neb Susp NEB SCH (07:44)
[2016-04-22] MEDS: Tiotropium Inhaler 18 MCG Inhalation Powder Cap Kit of 5 INH SCH (07:44)
[2016-04-22] MEDS: Oxymetazoline 0.05% Nasal Spray 15 ML Bottle NAS SCH (08:55)
[2016-04-22] MEDS: Mometasone Furoate Nasal Spray 17 GM Canister NAS SCH (08:56)
[2016-04-22] MEDS: Carvedilol 12.5 MG Tab PO SCH (08:56)
[2016-04-22] MEDS: predniSONE 10 MG Tab PO SCH (08:56)
[2016-04-22] MEDS: Famotidine 20 MG Tab PO SCH (08:57)
[2016-04-22] MEDS: Diltiazem 180 MG Cap.CD PO SCH (08:57)
[2016-04-22] MEDS: Bumetanide 1 MG Tab PO SCH (08:57)
[2016-04-22] MEDS: Polyethylene Glycol 3350 Powder 17 GM Packet PO SCH (08:58)
[2016-04-22] MEDS: Calcitonin (Salmon) Nasal Spray 3.7 ML Bottle NAS SCH (08:58)
[2016-04-22] MEDS: busPIRone 10 MG Tab PO SCH (08:58)
[2016-04-22] MEDS: Aspirin 81 MG Tab.EC PO SCH (08:58)
[2016-04-22] MEDS: guaiFENesin 600 MG Tab.ER PO SCH (08:58)
[2016-04-22] MEDS: Citalopram 20 MG Tab PO SCH (08:59)
[2016-04-22] MEDS: Insulin Aspart 100 Units/ML 3 ML Pen SUBCUT SCH (08:59)
[2016-04-22] MEDS: Lactobacillus Rhamnosus GG (Probiotic) Cap PO SCH (09:06)
[2016-04-22] MEDS: LORazepam 1 MG Tab PO PRN (10:50)
[2016-04-22] MEDS: Morphine 15 MG Tab.ER PO SCH (11:24)
--- NOTE | 2016-04-22 11:25 | PCM.DCSUM1 ---
Discharge Summary - Hospital Course Brief History: 65-year-old female with severe oxygen dependent COPD who presented with increasing shortness of breath and cough and was admitted for management of COPD exacerbation secondary to bronchitis - Discharge Data Discharge Date: 04/22/16 Discharge Disposition: DC/Tfer to [facility] 03 Condition: Fair - Discharge Diagnosis/Problem(s) (1) Acute exacerbation of chronic obstructive pulmonary disease (COPD) SNOMED Code(s): 502767079 ICD Code: J44.1 - CHRONIC OBSTRUCTIVE PULMONARY DISEASE W (ACUTE) EXACERBATION Status: Acute Current Visit: Yes (2) Bronchitis SNOMED Code(s): 09883266 ICD Code: J40 - BRONCHITIS, NOT SPECIFIED ACUTE OR CHRONIC Status: Acute Current Visit: Yes (3) Cor pulmonale, chronic SNOMED Code(s): 08468546 ICD Code: I27.81 - COR PULMONALE (CHRONIC) Status: Chronic Priority: Medium Current Visit: No Problem Details: acute on chronic (4) Stage III chronic kidney disease SNOMED Code(s): 627697865 ICD Code: N18.3 - CHRONIC KIDNEY DISEASE, STAGE 3 (MODERATE) Status: Chronic Priority: Medium Current Visit: No (5) Generalized anxiety disorder SNOMED Code(s): 19506353 ICD Code: F41.1 - GENERALIZED ANXIETY DISORDER Status: Chronic Current Visit: No - Patient Summary/Data Hospital Course: Zhane presented to the emergency room with increasing cough and shortness of breath. Workup in the emergency room revealed evidence for acute exacerbation of COPD thought secondary to bronchitis. She was admitted to the hospital and started on broad-spectrum antibiotics as well as increased dose of steroids from baseline. Over the next several days she had slow improvement but was making her regular improvement. Her oxygenation improved and air movement improved over the next few days. She tolerated antibiotics and steroids quite well. Subjectively she remained very short of breath and was symptomatic with even minimal activity in bed. She has been afebrile throughout most of the hospital stay. We did have a mild issue with increased lower extremity edema which has responded to usual diuretic doses over the past few days. We're able to transition her from IV steroids to high-dose oral steroids and have begun to taper his. We're unable to transition her from IV to oral antibiotics. All of her cultures have been negative. It is not entirely clear if this is viral or bacterial but we have elected to continue antibiotics for 3 additional days. No significant issues with anxiety during the hospital stay. At this point I believe that she is safe for outpatient management. She has been transitioned to oral medications and has tolerated his transition without a worsening of symptoms. She will need a prednisone taper over the next few weeks and this is outlined in the discharge instructions. She will be on doxycycline for 3-1/2 more days. She would benefit from physical and occupational therapy during her stay at the [facility]. She should followup with Dr. Kaminski in approximately one week to ensure that she continues to improve with current therapy. Kidney function has been stable during the hospital stay. Her INR is 2.6 on the day of discharge. - Patient Instructions Diet: Low Sodium Activity: As Tolerated Showering/Bathing: May Shower Notify Provider of: Fever, Increased Pain, Nausea and/or Vomiting Other/Special Instructions: 1. You were the hospital for management of an acute exacerbation of COPD secondary to bronchitis. It is not entirely clear if this was caused by a virus or a bacteria but I do recommend a few additional days of antibiotic therapy. Because of the high-dose prednisone used during hospital stay you will be on a prolonged taper. We will taper your prednisone as follows : -- 30 mg BID with meals x4 days then 20 mg BID with meals x5 days then 30 mg daily x5 days then 20 mg daily x5 days then 10 mg daily. 2. Please continue your other medications as previously prescribed. 3. Recheck your INR next week to monitoring your warfarin levels. 4. Seek medical attention if you develop sudden onset of shortness of breath, chest pain or significant weight gain and increasing lower extremity edema. - Discharge Plan Prescriptions/Med Rec: Doxycycline Calcium [IMW: Doxycycline] 100 mg PO Q12H #7 capsule Prednisone [IJD: predniSONE] 10 mg PO ASDIRECTED #100 tablet Home Medications: Home Meds Nitroglycerin [Nitrostat] 0.4 mg SL DAILY PRN 12/28/12 [History] Albuterol/Ipratropium [DuoNeb 3.0-0.5 MG/3 ML] 3 ml NEB QIDRT #100 neb 03/28/14 [Rx] Budesonide [Pulmicort] 0.5 mg NEB BIDRT #60 neb 03/28/14 [Rx] Simethicone [Gas-X] 80 mg PO TID PRN 07/24/14 [History] Cholecalciferol (Vitamin D3) [Vitamin D3] 1,000 units PO DAILY #0 12/12/14 [ History] Acetaminophen [Tylenol] 650 mg PO Q4H PRN 04/28/15 [History] Aspirin [Halfprin] 81 mg PO DAILY 05/29/15 [History] Famotidine [Pepcid] 20 mg PO DAILY 05/29/15 [History] busPIRone [Buspar] 20 mg PO TID 05/29/15 [History] LORazepam [Ativan] 1 mg PO BID 06/10/15 [History] Calcitonin ([place]) [Miacalcin Nasal [place]] 1 spray NS DAILY 10/16/15 [History] Triamcinolone Acetonide [Triamcinolone Acetonide 0.1% Crm] 1 dose TOP DAILY PRN 10/16/15 [History] Warfarin [Coumadin] 5 mg PO ASDIRECTED 10/16/15 [History] Warfarin [Coumadin] 7.5 mg PO ASDIRECTED 10/16/15 [History] Arformoterol [Brovana] 15 mcg NEB BID neb 10/20/15 [Rx] guaiFENesin [Mucinex] 400 mg PO TID 12/20/15 [History] ALPRAZolam [Alprazolam] 0.25 mg PO BID PRN #20 tablet 12/21/15 [Rx] Citalopram Hydrobromide [Celexa] 20 mg PO DAILY 12/29/15 [History] Carvedilol 12.5 mg PO BID 02/08/16 [History] rOPINIRole [Requip] 1 mg PO BEDTIME 02/08/16 [History] Diltiazem [Dilacor XR] 180 mg PO DAILY 02/24/16 [History] Bumetanide [Bumex] 1 mg PO BID 04/13/16 [History] L.acidoph,Paracasei, B.lactis [Probiotic] 2 each PO DAILY 04/13/16 [History] Mirtazapine [Remeron] 22.5 mg PO BEDTIME 04/13/16 [History] Morphine [MS Contin] 15 mg PO Q12H 04/13/16 [History] Nystatin 500,000 unit PO QID 04/13/16 [History] Potassium Chloride [Klor-Con M20] 20 meq PO BID 04/13/16 [History] Sennosides/Docusate Sodium [Senna Laxative Tablet] 1 tab PO BID 04/13/16 [ History] Tiotropium [Spiriva HandiHaler] 18 mcg INH DAILY 04/13/16 [History] oxyCODONE 10 mg PO BID PRN 04/13/16 [History] Doxycycline Calcium [IMW: Doxycycline] 100 mg PO Q12H #7 capsule 04/22/16 [Rx] Prednisone [IJD: predniSONE] 10 mg PO ASDIRECTED #100 tablet 04/22/16 [Rx] Patient Handouts: Acute Bronchitis Referrals: Israel Kaminski MD [Physician] - (f/u in one week - f/u hospital stay for COPD exacerbation) - Discharge Summary/Plan Comment DC Time >30 min.: Yes (45) - Patient Data Vitals - Most Recent: Last Vital Signs Temp 36.8 C 04/22/16 07:17 Pulse 74 04/22/16 10:50 Resp 18 04/22/16 07:17 BP 144/67 H 04/22/16 08:56 Pulse Ox 95 04/22/16 10:50 Weight - Most Recent: 72.847 kg I&O - Last 24 hours: Intake & Output 04/21/16 04/22/16 04/22/16 22:59 06:59 14:59 Intake Total 240 360 Output Total 200 Balance 240 160 Lab Results - Last 24 hrs: Laboratory Results - last 24 hr 04/22/16 04/22/16 04/22/16 Range/Units 05:00 05:00 05:00 WBC 16.8 H (4.5-11.0) K/uL RBC 3.90 (3.30-5.50) M/uL Hgb 11.8 L (12.0-15.0) g/dL Hct 38.8 (36.0-48.0) % MCV 100 H (80-98) fL MCH 30 (27-31) pg MCHC 30 L (32-36) % Plt Count 258 (150-400) K/uL PT 29.3 H (9.5-12.0) sec INR 2.68 H (0.80-1.20) Sodium 142 (140-148) mmol/L Potassium 4.1 (3.6-5.2) mmol/L Chloride 101 (100-108) mmol/L Carbon Dioxide 35 H (21-32) mmol/L Anion Gap 10.1 (5.0-14.0) mmol/L BUN 44 H (7-18) mg/dL Creatinine 1.3 H (0.6-1.0) mg/dL Est Cr Clr Drug Dosing 31.72 mL/min Estimated GFR (MDRD) 41 L (>60) Glucose 131 H (74-106) mg/dL Calcium 8.5 (8.5-10.1) mg/dL Med Orders - Current: Current Medications Albuterol (Proventil Neb Soln) 2.5 mg NEB Q4H PRN PRN Reason: Shortness Of Breath/wheezing Last Admin: 04/18/16 11:55 Dose: 2.5 mg Albuterol/Ipratropium (Duoneb 3.0-0.5 Mg/3 Ml) 3 ml NEB QIDRT PRN PRN Reason: Dyspnea Last Admin: 04/22/16 10:50 Dose: 3 ml Alprazolam (Xanax) 0.25 mg PO BID PRN PRN Reason: panic attack Last Admin: 04/18/16 08:10 Dose: 0.25 mg Aspirin (Halfprin) 81 mg PO DAILY [facility] Last Admin: 04/22/16 08:58 Dose: 81 mg Bisacodyl (Dulcolax) 5 mg PO DAILY PRN PRN Reason: Constipation Last Admin: 04/16/16 08:26 Dose: 5 mg Budesonide (Pulmicort) 0.5 mg NEB BIDRT [facility] Last Admin: 04/22/16 07:44 Dose: 0.5 mg Bumetanide (Bumex) 4 mg PO DAILY [facility] Last Admin: 04/22/16 08:57 Dose: 4 mg Buspirone HCl (Buspar) 20 mg PO TID [facility] Last Admin: 04/22/16 08:58 Dose: 20 mg Calcitonin [place] (Miacalcin Nasal [place]) 0 ml ADRIANNA DAILY [facility] Last Admin: 04/22/16 08:58 Dose: 1 spray Carvedilol (Coreg) 12.5 mg PO BIDMEALS [facility] Last Admin: 04/22/16 08:56 Dose: 12.5 mg Citalopram Hydrobromide (Celexa) 20 mg PO DAILY [facility] Last Admin: 04/22/16 08:59 Dose: 20 mg Diltiazem HCl (Cardizem Cd) 180 mg PO DAILY [facility] Last Admin: 04/22/16 08:57 Dose: 180 mg Docusate Sodium (Colace) 100 mg PO BID PRN PRN Reason: Constipation Last Admin: 04/17/16 08:14 Dose: 100 mg Doxycycline Hyclate (Vibramycin) 100 mg PO Q12H [facility] Last Admin: 04/22/16 04:34 Dose: 100 mg Famotidine (Pepcid) 20 mg PO DAILY [facility] Last Admin: 04/22/16 08:57 Dose: 20 mg Guaifenesin (Mucinex) 600 mg PO BID [facility] Last Admin: 04/22/16 08:58 Dose: 600 mg Insulin Aspart (Novolog) 0 unit SUBCUT ASDIRECTED [facility] PRN Reason: Protocol Last Admin: 04/22/16 08:59 Dose: 1 unit Lactobacillus Rhamnosus (Culturelle) 2 cap PO DAILY [facility] Last Admin: 04/22/16 09:06 Dose: 2 cap Lorazepam (Ativan) 1 mg PO Q4H PRN PRN Reason: Anxiety Last Admin: 04/21/16 19:42 Dose: 1 mg Mirtazapine (Remeron) 22.5 mg PO BEDTIME [facility] Last Admin: 04/21/16 21:04 Dose: 22.5 mg Mometasone Furoate (Nasonex [place]) 0 gm ADRIANNA BID [facility] Last Admin: 04/22/16 08:56 Dose: 1 spr Morphine Sulfate (Ms Contin) 15 mg PO Q12H [facility] Last Admin: 04/21/16 22:34 Dose: 15 mg Nitroglycerin (Nitrostat) 0.4 mg SL DAILY PRN PRN Reason: Chest Pain Nystatin (Mycostatin) 5 ml PO QID [facility] Last Admin: 04/22/16 09:06 Dose: 5 ml Ondansetron HCl (Zofran) 4 mg IV Q4H PRN PRN Reason: Nausea/Vomiting Oxycodone HCl (Oxycodone) 10 mg PO BID PRN PRN Reason: Pain Oxymetazoline HCl (Afrin Original 0.05% Nasal [place]) 0 ml ADRIANNA BID [facility] Last Admin: 04/22/16 08:55 Dose: 1 spray Polyethylene Glycol (Miralax) 17 gm PO DAILY [facility] Last Admin: 04/22/16 08:58 Dose: Not Given Prednisone (Prednisone) 30 mg PO BIDAC [facility] Last Admin: 04/22/16 08:56 Dose: 30 mg Ropinirole HCl (Requip) 1 mg PO BEDTIME [facility] Last Admin: 04/21/16 21:04 Dose: 1 mg Senna/Docusate Sodium (Senna Plus) 1 tab PO BID [facility] Last Admin: 04/22/16 08:57 Dose: 1 tab Simethicone (Simethicone) 80 mg PO Q4H PRN PRN Reason: Heartburn Tiotropium [place] (Spiriva Handihaler) 18 mcg INH DAILYRT [facility] Last Admin: 04/22/16 07:44 Dose: 18 mcg Triamcinolone Acetonide (Triamcinolone Acetonide 0.1% Crm) 0 gm TOP DAILY PRN PRN Reason: Rash Last Admin: 04/15/16 21:35 Dose: 1 applic Warfarin Sodium (Coumadin) 5 mg PO DAILY@1300 [facility] Last Admin: 04/21/16 13:04 Dose: 5 mg Zolpidem Tartrate (Ambien) 5 mg PO BEDTIME PRN PRN Reason: Sleep Discontinued Medications Albuterol/Ipratropium (Duoneb 3.0-0.5 Mg/3 Ml) 3 ml NEB QID PRN PRN Reason: Shortness Of Breath/wheezing Last Admin: 04/14/16 19:20 Dose: 3 ml Albuterol/Ipratropium (Duoneb 3.0-0.5 Mg/3 Ml) 3 ml NEB QIDRT [facility] Last Admin: 04/17/16 10:37 Dose: 3 ml Arformoterol Tartrate (Brovana) 15 mcg NEB BIDRT [facility] Last Admin: 04/17/16 07:35 Dose: 15 mcg Bumetanide (Bumex) 1 mg PO BID [facility] Last Admin: 04/18/16 08:41 Dose: 1 mg Bumetanide (Bumex) 2 mg PO BID@0800,1400 [facility] Last Admin: 04/19/16 14:20 Dose: 2 mg Bumetanide (Bumex) 4 mg PO BID@0800,1400 [facility] Last Admin: 04/20/16 07:34 Dose: 4 mg Bumetanide (Bumex) 2 mg PO ONETIME ONE Stop: 04/19/16 15:01 Last Admin: 04/19/16 15:58 Dose: 2 mg Al Hydroxide/Mg Hydroxide 15 (ml/ Lidocaine HCl 15 ml) 0 ml PO ONETIME ONE Stop: 04/19/16 16:15 Last Admin: 04/19/16 16:58 Dose: 30 ml Docusate Sodium (Colace) 100 mg PO BID [facility] Last Admin: 04/15/16 08:16 Dose: 100 mg Levofloxacin/Dextrose 500 mg/ (Premix) 100 mls @ 100 mls/hr IV Q24H [facility] Last Admin: 04/15/16 23:28 Dose: 100 mls/hr Sodium Chloride (Normal Saline) 1,000 mls @ 75 mls/hr IV ASDIRECTED [facility] Doxycycline Hyclate 100 mg/ (Sodium Chloride) 100 mls @ 100 mls/hr IV Q12H [facility] Last Admin: 04/18/16 03:43 Dose: 100 mls/hr Sodium Chloride (Normal Saline) 1,000 mls @ 50 mls/hr IV ASDIRECTED [facility] Last Admin: 04/16/16 22:29 Dose: 50 mls/hr Insulin Aspart (Novolog) 6 unit SUBCUT ONETIME ONE Stop: 04/16/16 08:01 Last Admin: 04/16/16 08:13 Dose: 6 units Lorazepam (Ativan) 1 mg IVPUSH ONETIME ONE Stop: 04/13/16 22:03 Last Admin: 04/13/16 22:19 Dose: 1 mg Lorazepam (Ativan) 2 mg IVPUSH ONETIME ONE Stop: 04/14/16 02:09 Last Admin: 04/14/16 02:08 Dose: 2 mg Lorazepam (Ativan) 1 mg IVPUSH Q2H PRN PRN Reason: Anxiety Last Admin: 04/17/16 08:01 Dose: 1 mg Methylprednisolone Sodium Succinate (Solu-Medrol) 125 mg IVPUSH Q6H [facility] Last Admin: 04/14/16 05:31 Dose: 125 mg Methylprednisolone Sodium Succinate (Solu-Medrol) 40 mg IVPUSH Q6H [facility] Last Admin: 04/18/16 17:15 Dose: Not Given Potassium Chloride (Klor-Con M20) 20 meq PO BID [facility] Last Admin: 04/14/16 08:15 Dose: 20 meq Potassium Chloride (Klor-Con M20) 40 meq PO ONETIME ONE Stop: 04/20/16 09:01 Last Admin: 04/20/16 08:52 Dose: 40 meq Prednisone (Prednisone) 40 mg PO BIDMEALS [facility] Last Admin: 04/21/16 08:12 Dose: 40 mg Sodium Biphosphate/Sodium Phosphate (Fleet Enema) 133 ml RECTAL ONETIME ONE Stop: 04/16/16 08:47 Last Admin: 04/16/16 10:23 Dose: 133 ml Warfarin Sodium (Coumadin) 5 mg PO MoFr@1300 [facility] Last Admin: 04/14/16 13:46 Dose: 5 mg Warfarin Sodium (Coumadin) 7.5 mg PO SuTuWeThSa@1300 [facility] Warfarin Sodium (Coumadin) 2.5 mg PO ONETIME ONE Stop: 04/15/16 13:01 Last Admin: 04/15/16 13:31 Dose: Not Given Warfarin Sodium (Coumadin) 2.5 mg PO ONETIME ONE Stop: 04/15/16 16:01 Last Admin: 04/15/16 16:05 Dose: 2.5 mg Warfarin Sodium (Coumadin) 5 mg PO ONETIME ONE Stop: 04/16/16 16:01 Last Admin: 04/16/16 15:59 Dose: 5 mg Warfarin Sodium (Coumadin) 7.5 mg PO ONETIME ONE Stop: 04/17/16 13:01 Last Admin: 04/17/16 13:43 Dose: 7.5 mg Warfarin Sodium (Coumadin) 5 mg PO ONETIME ONE Stop: 04/18/16 16:01 Last Admin: 04/18/16 15:31 Dose: 5 mg Warfarin Sodium (Coumadin) 2.5 mg PO ONETIME ONE Stop: 04/19/16 15:01 Last Admin: 04/19/16 15:57 Dose: 2.5 mg *Q Meaningful Use (DIS) - VTE *Q VTE Criteria *Q: - Stroke *Q Stroke Criteria *Q: - AMI *Q AMI Criteria *Q:
== END 2016-04-22 13:05 | DRG 190 ==
LOC: JP.ED 19:53 → JP.ICU 22:52 → JP.2SS 04-15 08:54
PROVIDERS: ADMIT Hospitalist; ATTEND Internal Medicine
DX: J44.0 Chronic obstructive pulmonary disease with (acute) lower respiratory infection (principal); J96.21 Acute and chronic respiratory failure with hypoxia; J96.22 Acute and chronic respiratory failure with hypercapnia; D68.51 Activated protein C resistance; J20.9 Acute bronchitis, unspecified; J44.1 Chronic obstructive pulmonary disease with (acute) exacerbation; I27.81 Cor pulmonale (chronic); Z87.891 Personal history of nicotine dependence; N18.3 Chronic kidney disease, stage 3 (moderate); Z99.81 Dependence on supplemental oxygen; F41.1 Generalized anxiety disorder; Z79.01 Long term (current) use of anticoagulants; F41.0 Panic disorder [episodic paroxysmal anxiety]; R60.9 Edema, unspecified; I25.10 Atherosclerotic heart disease of native coronary artery without angina pectoris; I25.2 Old myocardial infarction; Z95.5 Presence of coronary angioplasty implant and graft; Z87.01 Personal history of pneumonia (recurrent); M19.90 Unspecified osteoarthritis, unspecified site; M54.9 Dorsalgia, unspecified; M79.7 Fibromyalgia; G89.29 Other chronic pain; F32.9 Major depressive disorder, single episode, unspecified; Z79.82 Long term (current) use of aspirin; Z79.52 Long term (current) use of systemic steroids; Z88.1 Allergy status to other antibiotic agents; Z91.041 Radiographic dye allergy status; Z88.0 Allergy status to penicillin; Z91.048 Other nonmedicinal substance allergy status; Z79.899 Other long term (current) drug therapy; Z51.81 Encounter for therapeutic drug level monitoring
CPT/HCPCS: 36415; 36600; 71010 ×2; 80048; 81001; 82150; 82803; 83605; 83690; 83735; 85025; 85610; 87040 ×2; 87086; 99284; 99285; J2060; 82962; 85027; 94640; 94640-76; 94664; 94762; A9270-GY; J1956; J2920; J2930; J7030; J7040; J7605; J7620

== ENCOUNTER 2016-05-03 12:16 | Emergency (ER) | payer MEDICARE, BC ==
[2016-05-03 12:41] VITALS: BP 121/74
--- NOTE | 2016-05-03 13:04 | EDM.PDOC ---
ED HPI NEURO - General Chief Complaint: Neuro Symptoms/Deficits Stated Complaint: WEAKNESS Time Seen by Provider: 05/03/16 12:25 Source: Reports: Patient, EMS, Family History Limitations: Reports: No limitations - History of Present Illness INITIAL COMMENTS - FREE TEXT/NARRATIVE: 65-year-old female with chronic COPD who was with her family going into a local restaurant when she became unresponsive and weak. This was after ambulating into the restaurant from the vehicle. She has had this happen to her in the past but this was more intense. EMS was called and by the time she was transported to the hospital her baseline vitals had resumed normal and she was responding appropriately. No pain, no significant shortness of breath. Severity: moderate Associated symptoms: Reports: syncope, weakness. Denies: shortness of breath, cough, nausea/vomiting - Related Data Allergies/ADRs: Allergies Allergy/AdvReac Type Severity Reaction Status Date / Time Cephalosporins Allergy Severe Anaphylactic Verified 04/13/16 19:56 Shock Penicillins Allergy Severe Anaphylactic Verified 04/13/16 19:56 Shock adhesive Allergy Unknown Cannot Verified 04/13/16 19:56 Remember Iodinated Contrast Media - Allergy Itching Verified 04/13/16 19:56 Oral and [Iodinated Contrast Media - IV Dye] erythromycin base AdvReac Unknown Nausea and Verified 04/13/16 19:56 [Erythromycin Base] Vomiting Home Meds: Home Meds Nitroglycerin [Nitrostat] 0.4 mg SL DAILY PRN 12/28/12 [History] Albuterol/Ipratropium [DuoNeb 3.0-0.5 MG/3 ML] 3 ml NEB QIDRT #100 [facility] 03/28/14 [Rx] Budesonide [Pulmicort] 0.5 mg NEB BIDRT #60 [facility] 03/28/14 [Rx] Simethicone [Gas-X] 80 mg PO TID PRN 07/24/14 [History] Cholecalciferol (Vitamin D3) [Vitamin D3] 1,000 units PO DAILY #0 12/12/14 [ History] Acetaminophen [Tylenol] 650 mg PO Q4H PRN 04/28/15 [History] Aspirin [Halfprin] 81 mg PO DAILY 05/29/15 [History] Famotidine [Pepcid] 20 mg PO DAILY 05/29/15 [History] busPIRone [Buspar] 20 mg PO TID 05/29/15 [History] LORazepam [Ativan] 1 mg PO BID 06/10/15 [History] Calcitonin ([place]) [Miacalcin Nasal [place]] 1 spray NS DAILY 10/16/15 [History] Triamcinolone Acetonide [Triamcinolone Acetonide 0.1% Crm] 1 dose TOP DAILY PRN 10/16/15 [History] Warfarin [Coumadin] 5 mg PO ASDIRECTED 10/16/15 [History] Warfarin [Coumadin] 7.5 mg PO ASDIRECTED 10/16/15 [History] Arformoterol [Brovana] 15 mcg NEB BID neb 10/20/15 [Rx] guaiFENesin [Mucinex] 400 mg PO TID 12/20/15 [History] ALPRAZolam [Alprazolam] 0.25 mg PO BID PRN #20 tablet 12/21/15 [Rx] Citalopram Hydrobromide [Celexa] 20 mg PO DAILY 12/29/15 [History] Carvedilol 12.5 mg PO BID 02/08/16 [History] rOPINIRole [Requip] 1 mg PO BEDTIME 02/08/16 [History] Diltiazem [Dilacor XR] 180 mg PO DAILY 02/24/16 [History] Bumetanide [Bumex] 1 mg PO BID 04/13/16 [History] L.acidoph,Paracasei, B.lactis [Probiotic] 2 each PO DAILY 04/13/16 [History] Mirtazapine [Remeron] 22.5 mg PO BEDTIME 04/13/16 [History] Morphine [MS Contin] 15 mg PO Q12H 04/13/16 [History] Nystatin 500,000 unit PO QID 04/13/16 [History] Potassium Chloride [Klor-Con M20] 20 meq PO BID 04/13/16 [History] Sennosides/Docusate Sodium [Senna Laxative Tablet] 1 tab PO BID 04/13/16 [ History] Tiotropium [Spiriva HandiHaler] 18 mcg INH DAILY 04/13/16 [History] oxyCODONE 10 mg PO BID PRN 04/13/16 [History] Doxycycline Calcium [IMW: Doxycycline] 100 mg PO Q12H #7 capsule 04/22/16 [Rx] Prednisone [IJD: predniSONE] 10 mg PO ASDIRECTED #100 tablet 04/22/16 [Rx] Past Medical History HEENT History: Reports: Cataract, Other (see below) Other HEENT History: dry nose Cardiovascular History: Reports: Aneurysm, CAD, Hypertension, [place], SOB on exertion Other Cardiovascular History: 3 stents, aneurysm was repaired Respiratory History: Reports: Asthma, Bronchitis, recurrent, COPD, Intubation, previous, Pneumonia, recurrent, SOB Gastrointestinal History: Reports: Chronic diarrhea, Irritable bowel syndrome, Other (see below) Other Gastrointestinal History: microscopic colitis Genitourinary History: Reports: Renal calculus, Other (see below) Other Genitourinary History: incontient a lot lately per pt 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: , Spontaneous Musculoskeletal History: Reports: Arthritis, Back pain, chronic, Fibromyalgia, Osteoporosis, Other (see below) Other Musculoskeletal History: compression fx Neurological History: Reports: Other (see below) Other Neuro History: compression fractures Psychiatric History: Reports: Anxiety, Depression Endocrine/Metabolic History: Reports: Osteoporosis Hematologic History: Reports: Other (see below) Other Hematologic History: v Leiden factor five Dermatologic History: Reports: Eczema, Other (see below) Other Dermatologic History: bruises easily related to coumadin, prednisone - Infectious Disease History Infectious Disease History: Reports: Chicken pox Other Infectious Disease History: hx of Hepatitis as a child, pt. does not know which one - Past Surgical History Cardiovascular Surgical History: Reports: Aneurysm, Coronary artery stent GI Surgical History: Reports: Appendectomy, Cholecystectomy, Colonoscopy Other GI Surgeries/Procedures: [facility]scopic [facility] Female Surgical History: Reports: Breast biopsy, Other (see below) Other Female Surgeries/Procedures: cystoscopy x1 for hematuria Neurological Surgical History: Reports: Vertebroplasty Musculoskeletal Surgical History: Reports: Shoulder surgery Social & Family History - Family History Family Medical History: Noncontributory Cardiac: Reports: [place] Respiratory: Reports: COPD : Reports: Renal disease/insufficiency Psychiatric: Reports: Depression - Tobacco Use Smoking Status *Q: Never Smoker Years of Tobacco use: 50 Packs/Tins Daily: 0 Used Tobacco, but Quit: Yes Month Tobacco Last Used: 2012 Second Hand Smoke Exposure: No - Caffeine Use Caffeine Use: Reports: Coffee, Soda, Tea Caffeine Use Comment: 3-4 cups a day - Alcohol Use Days Per Week of Alcohol Use: 3 Number of Drinks Per Day: 1 Total Drinks Per Week: 3 - Recreational Drug Use Recreational Drug Use: No Recreational Drug Type: Reports: Oxycodone Other Recreational Drug Type: per prescription Recreational Drug Use Frequency: Daily - Living Situation & Occupation Living situation: Reports: , alone, other (Has 3 children: Lisbet and Lia, one son Steven.) 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.) ED ROS GENERAL - Review of Systems Review Of Systems: See Below Constitutional: Reports: weakness. Denies: fever, chills HEENT: Reports: No symptoms Respiratory: Reports: Shortness of Breath (Chronic stable) Cardiovascular: Denies: Chest pain GI/Abdominal: Denies: Abdominal pain, Nausea, Vomiting Musculoskeletal: Reports: back pain (Unchanged) Skin: Reports: pallor, bruising Neurological: Reports: Syncope Psychiatric: Reports: Anxiety ED EXAM, NEURO - Physical Exam Exam: See Below Exam Limited By: No limitations General Appearance: alert, no apparent distress Eye Exam: bilateral eye: normal inspection Respiratory/Chest: no respiratory distress Cardiovascular: regular rate, rhythm. No: tachycardia GI/Abdominal: soft, non tender Neurological: alert, no motor/sensory deficits (No asymmetry) Psychiatric: normal affect, normal mood Skin Exam: Warm, Dry, Other (Skin is very thin and she has widespread bruising on her upper extremities) Course - Vital Signs Last Recorded V/S: Last Vital Signs Temp 97.9 F 05/03/16 12:34 Pulse 74 05/03/16 12:34 Resp 14 05/03/16 12:34 BP 121/74 05/03/16 12:34 Pulse Ox 94 L 05/03/16 12:34 - Orders/Labs/Meds Labs: Laboratory Tests 05/03/16 05/03/16 Range/Units 12:41 12:41 WBC 20.8 H (4.5-11.0) K/uL RBC 3.95 (3.30-5.50) M/uL Hgb 12.0 (12.0-15.0) g/dL Hct 41.1 (36.0-48.0) % MCV 104 H (80-98) fL MCH 30 (27-31) pg MCHC 29 L (32-36) % Plt Count 114 L (150-400) K/uL Add Manual Diff Yes Neutrophils % (Manual) 81 H (36-66) % Band Neutrophils % 7 (5-11) % Lymphocytes % (Manual) 5 L (24-44) % Monocytes % (Manual) 3 (2-6) % Eosinophils % (Manual) 3 (2-4) % Basophils % (Manual) 1 (0-1) % Sodium 145 (140-148) mmol/L Potassium 5.0 (3.6-5.2) mmol/L Chloride 105 (100-108) mmol/L Carbon Dioxide 35 H (21-32) mmol/L Anion Gap 10.0 (5.0-14.0) mmol/L BUN 36 H (7-18) mg/dL Creatinine 1.4 H (0.6-1.0) mg/dL Est Cr Clr Drug Dosing 29.42 mL/min Estimated GFR (MDRD) 38 L (>60) Glucose 133 H (74-106) mg/dL Calcium 8.3 L (8.5-10.1) mg/dL - Re-Assessments/Exams Free Text/Narrative Re-Assessment/Exam: 05/03/16 13:03 A BMP and CBC were obtained. Her white count has been elevated recently from steroid treatment and her daughter wanted it rechecked. The patient herself feels okay. 05/03/16 14:19 Patient was observed hour and developed no recurrent symptoms. Her monitor showed normal sinus rhythm. Vitals were stable. Her white blood cell count is 20,000, slightly elevated from yesterday but may be due to the syncopal episode with resulting adrenaline surge. She ate a meal without difficulty. Departure - Departure Time of Disposition: 14:15 Disposition: DC/Tfer to [facility] Condition: fair Clinical Impression: Vasovagal syncope Instructions: Vasovagal Syncope, Adult Referrals: Israel Kaminski MD [Primary Care Provider] - Forms: ED Department Discharge Care Plan Goals: Diet and activity as tolerated. Discuss medications with primary provider. Return any time if worsening or concerns.
== END 2016-05-03 14:53 ==
LOC: JP.ED 12:16
DX: R55 Syncope and collapse (principal); I25.2 Old myocardial infarction; I10 Essential (primary) hypertension; I25.10 Atherosclerotic heart disease of native coronary artery without angina pectoris; J45.909 Unspecified asthma, uncomplicated; J44.9 Chronic obstructive pulmonary disease, unspecified; F41.9 Anxiety disorder, unspecified; F32.9 Major depressive disorder, single episode, unspecified; Z95.5 Presence of coronary angioplasty implant and graft; Z90.49 Acquired absence of other specified parts of digestive tract; Z98.890 Other specified postprocedural states; Z79.01 Long term (current) use of anticoagulants; Z79.82 Long term (current) use of aspirin; Z79.899 Other long term (current) drug therapy; Z88.0 Allergy status to penicillin; Z88.1 Allergy status to other antibiotic agents; Z91.041 Radiographic dye allergy status; Z91.048 Other nonmedicinal substance allergy status
CPT/HCPCS: 36415; 80048; 85025; 99283; 99285

== ENCOUNTER 2016-05-12 12:27 | Emergency (ER) | payer MEDICARE, BC ==
[2016-05-12 12:42] VITALS: BP 156/93
[2016-05-12] MEDS ORDERED: LORazepam 2 MG/ML MDV IM ONE (13:16)
--- NOTE | 2016-05-12 13:41 | EDM.PDOC ---
[id number]: SHORTNESS OF BRE Time Seen by Provider: 05/12/16 12:50 Source: Reports: Patient, Provider History Limitations: Reports: Altered mental status - History of Present Illness INITIAL COMMENTS - FREE TEXT/NARRATIVE: 65-year-old female sent in from the long term due to weakness, confusion, decreased appetite. The long term medical provider was concerned of the CO2 retention. She has had this problem in the past. No fevers or chills. No significant pain. She continues to have occasional falls and has scattered bruises. She seems oriented to me at this time and is answering questions appropriately. She is eating ice chips without assistance. Severity: moderate Associated Symptoms: Reports: denies other symptoms - Related Data Allergies/ADRs: Allergies Allergy/AdvReac Type Severity Reaction Status Date / Time Cephalosporins Allergy Severe Anaphylactic Verified 05/12/16 13:32 Shock Penicillins Allergy Severe Anaphylactic Verified 05/12/16 13:32 Shock adhesive Allergy Unknown Cannot Verified 05/12/16 13:32 Remember Iodinated Contrast Media - Allergy Itching Verified 05/12/16 13:32 Oral and [Iodinated Contrast Media - IV Dye] erythromycin base AdvReac Unknown Nausea and Verified 05/12/16 13:32 [Erythromycin Base] Vomiting Home Meds: Home Meds Nitroglycerin [Nitrostat] 0.4 mg SL DAILY PRN 12/28/12 [History] Albuterol/Ipratropium [DuoNeb 3.0-0.5 MG/3 ML] 3 ml NEB QIDRT #100 [facility] 03/28/14 [Rx] Budesonide [Pulmicort] 0.5 mg NEB BIDRT #60 [facility] 03/28/14 [Rx] Simethicone [Gas-X] 80 mg PO TID PRN 07/24/14 [History] Cholecalciferol (Vitamin D3) [Vitamin D3] 1,000 units PO DAILY #0 12/12/14 [ History] Acetaminophen [Tylenol] 650 mg PO Q4H PRN 04/28/15 [History] Aspirin [Halfprin] 81 mg PO DAILY 05/29/15 [History] Famotidine [Pepcid] 20 mg PO DAILY 05/29/15 [History] busPIRone [Buspar] 10 mg PO TID 05/29/15 [History] LORazepam [Ativan] 1 mg PO BID PRN 06/10/15 [History] Calcitonin ([place]) [Miacalcin Nasal [place]] 1 spray NS DAILY 10/16/15 [History] Triamcinolone Acetonide [Triamcinolone Acetonide 0.1% Crm] 1 dose TOP DAILY PRN 10/16/15 [History] Warfarin [Coumadin] 5 mg PO ASDIRECTED 10/16/15 [History] Warfarin [Coumadin] 7.5 mg PO ASDIRECTED 10/16/15 [History] Arformoterol [Brovana] 15 mcg NEB BID neb 10/20/15 [Rx] guaiFENesin [Mucinex] 400 mg PO TID 12/20/15 [History] ALPRAZolam [Alprazolam] 0.25 mg PO BID PRN #20 tablet 12/21/15 [Rx] Citalopram Hydrobromide [Celexa] 20 mg PO DAILY 12/29/15 [History] Carvedilol 12.5 mg PO BID 02/08/16 [History] rOPINIRole [Requip] 1 mg PO BEDTIME 02/08/16 [History] Diltiazem [Dilacor XR] 180 mg PO DAILY 02/24/16 [History] Bumetanide [Bumex] 1 mg PO BID 04/13/16 [History] L.acidoph,Paracasei, B.lactis [Probiotic] 2 each PO DAILY 04/13/16 [History] Mirtazapine [Remeron] 22.5 mg PO BEDTIME 04/13/16 [History] Morphine [MS Contin] 15 mg PO Q12H PRN 04/13/16 [History] Nystatin 500,000 unit PO QID PRN 04/13/16 [History] Potassium Chloride [Klor-Con M20] 20 meq PO BID 04/13/16 [History] Sennosides/Docusate Sodium [Senna Laxative Tablet] 1 tab PO BID 04/13/16 [ History] Tiotropium [Spiriva HandiHaler] 18 mcg INH DAILY 04/13/16 [History] oxyCODONE 10 mg PO BID PRN 04/13/16 [History] Doxycycline Calcium [IMW: Doxycycline] 100 mg PO Q12H #7 capsule 04/22/16 [Rx] Prednisone [IJD: predniSONE] 10 mg PO DAILY 05/12/16 [History] Past Medical History HEENT History: Reports: Cataract, Other (see below) Other HEENT History: dry nose Cardiovascular History: Reports: Aneurysm, CAD, Hypertension, [place], SOB on exertion Other Cardiovascular History: 3 stents, aneurysm was repaired Respiratory History: Reports: Asthma, Bronchitis, recurrent, COPD, Intubation, previous, Pneumonia, recurrent, SOB Gastrointestinal History: Reports: Chronic diarrhea, Irritable bowel syndrome, Other (see below) Other Gastrointestinal History: microscopic colitis Genitourinary History: Reports: Renal calculus, Other (see below) Other Genitourinary History: incontient a lot lately per pt UX DESIGN LEAD History: Reports: , Spontaneous Musculoskeletal History: Reports: Arthritis, Back pain, chronic, Fibromyalgia, Osteoporosis, Other (see below) Other Musculoskeletal History: compression fx Neurological History: Reports: Other (see below) Other Neuro History: compression fractures Psychiatric History: Reports: Anxiety, Depression Endocrine/Metabolic History: Reports: Osteoporosis Hematologic History: Reports: Other (see below) Other Hematologic History: v Leiden factor five Dermatologic History: Reports: Eczema, Other (see below) Other Dermatologic History: bruises easily related to coumadin, prednisone - Infectious Disease History Infectious Disease History: Reports: Chicken pox Other Infectious Disease History: hx of Hepatitis as a child, pt. does not know which one - Past Surgical History Cardiovascular Surgical History: Reports: Aneurysm, Coronary artery stent GI Surgical History: Reports: Appendectomy, Cholecystectomy, Colonoscopy Other GI Surgeries/Procedures: [facility] micrscopic [facility] Female Surgical History: Reports: Breast biopsy, Other (see below) Other Female Surgeries/Procedures: cystoscopy x1 for hematuria Neurological Surgical History: Reports: Vertebroplasty Musculoskeletal Surgical History: Reports: Shoulder surgery Social & Family History - Family History Family Medical History: Noncontributory Cardiac: Reports: [place] Respiratory: Reports: COPD : Reports: Renal disease/insufficiency Psychiatric: Reports: Depression - Tobacco Use Smoking Status *Q: Never Smoker Years of Tobacco use: 50 Packs/Tins Daily: 0 Used Tobacco, but Quit: Yes Month Tobacco Last Used: 2012 Second Hand Smoke Exposure: No - Caffeine Use Caffeine Use: Reports: Coffee, Soda, Tea Caffeine Use Comment: 3-4 cups a day - Alcohol Use Days Per Week of Alcohol Use: 3 Number of Drinks Per Day: 1 Total Drinks Per Week: 3 - Recreational Drug Use Recreational Drug Use: No Recreational Drug Type: Reports: Oxycodone Other Recreational Drug Type: per prescription Recreational Drug Use Frequency: Daily - Living Situation & Occupation Living situation: Reports: , alone, other (Has 3 children: Lisbet and Lia, one son Steven.) 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.) ED ROS GENERAL - Review of Systems Review Of Systems: See Below Constitutional: Reports: malaise, weakness, decreased appetite. Denies: fever HEENT: Reports: No symptoms Respiratory: Reports: Shortness of Breath (Especially with activity) Cardiovascular: Denies: Chest pain GI/Abdominal: Denies: Diarrhea, Nausea, Vomiting : Reports: no symptoms Skin: Reports: bruising Neurological: Reports: Confusion. Denies: Headache ED EXAM, GENERAL - Physical Exam Exam: See Below Exam Limited By: No limitations General Appearance: alert, no apparent distress Eye Exam: bilateral eye: EOMI Respiratory/Chest: no respiratory distress, decreased breath sounds ( Significant diffuse decreased breath sounds bilaterally) Cardiovascular: regular rate, rhythm GI/Abdominal: non tender Neurological: alert, confused (Mildly confused and somewhat hesitant with her answers but they are appropriate) Psychiatric: flat affect Skin Exam: Warm, Dry Course - Vital Signs Last Recorded V/S: Last Vital Signs Temp 98.7 F 05/12/16 12:49 Pulse 89 05/12/16 12:49 Resp 17 05/12/16 12:49 BP 156/93 H 05/12/16 12:49 Pulse Ox 93 L 05/12/16 12:49 - Orders/Labs/Meds Labs: Laboratory Tests 05/12/16 05/12/16 05/12/16 Range/Units 13:13 13:41 13:41 WBC 7.6 (4.5-11.0) K/uL RBC 3.29 L (3.30-5.50) M/uL Hgb 10.0 L (12.0-15.0) g/dL Hct 34.1 L (36.0-48.0) % MCV 104 H (80-98) fL MCH 30 (27-31) pg MCHC 29 L (32-36) % Plt Count 135 L (150-400) K/uL Add Manual Diff Yes Neutrophils % (Manual) 62 (36-66) % Band Neutrophils % 8 (5-11) % Lymphocytes % (Manual) 11 L (24-44) % Monocytes % (Manual) 11 H (2-6) % Eosinophils % (Manual) 8 H (2-4) % Puncture Site Lt radial ABG pH 7.389 (7.350-7.450) ABG pCO2 52.0 H (35.0-42.0) mmHg ABG pO2 102.0 H (75.0-100.0) mmHg ABG HCO3 30.7 H (22.0-26.0) mmol/L ABG Total CO2 28.5 H (21.0-25.0) mmol/L ABG O2 Saturation 96.0 (95.0-98.0) % ABG O2 Content 13.7 L (15.0-23.0) %vol ABG Base Excess 5.3 mm/L ABG Hemoglobin 10.2 L (12.0-16.0) g/dL ABG Oxyhemoglobin 94.8 % ABG Carboxyhemoglobin 0.5 (0.0-1.6) % ABG Methemoglobin 0.8 % Cornelio Test Passed O2 Delivery Device Nasal cannula Oxygen Flow Rate 2 L Sodium 141 (140-148) mmol/L Potassium 4.3 (3.6-5.2) mmol/L Chloride 103 (100-108) mmol/L Carbon Dioxide 33 H (21-32) mmol/L Anion Gap 9.3 (5.0-14.0) mmol/L BUN 21 H (7-18) mg/dL Creatinine 1.0 (0.6-1.0) mg/dL Est Cr Clr Drug Dosing 41.24 mL/min Estimated GFR (MDRD) 55 L (>60) Glucose 102 (74-106) mg/dL Calcium 7.9 L (8.5-10.1) mg/dL Troponin I < 0.017 (0.000-0.056) ng/mL - Re-Assessments/Exams Free Text/Narrative Re-Assessment/Exam: 05/12/16 13:42 After discussion with Gabriella Pastor, the practitioner who assessed her at the long term we jaiden ABGs, BMP and a CBC along with troponin. 05/12/16 14:30 ABGs revealed a CO2 of 52 which is very similar to past readings. White count was normal. Electrolytes were reassuring. Patient continued to be oriented, answering questions appropriately and was stable. She'll be sent back to the long term and reassessed tomorrow by Tana Pastor. Departure - Departure Time of Disposition: 15:04 Disposition: DC/Tfer to [facility] Condition: fair Clinical Impression: Confusion, Weakness COPD (chronic obstructive pulmonary disease) Qualifiers: COPD type: emphysema Emphysema type: panlobular Qualified Code(s): J43.1 - Panlobular emphysema Instructions: Confusion, Weakness, [id number], Chronic Obstructive Pulmonary Disease, [id number] Referrals: Israel Kaminski MD [Primary Care Provider] - Forms: ED Department Discharge Care Plan Goals: Return to [facility] and resume regular medications. Reassessments by primary provider tomorrow.
== END 2016-05-12 15:06 ==
LOC: JP.ED 12:27
DX: J43.1 Panlobular emphysema (principal); R41.0 Disorientation, unspecified; R53.1 Weakness; I25.2 Old myocardial infarction; I10 Essential (primary) hypertension; I25.10 Atherosclerotic heart disease of native coronary artery without angina pectoris; J45.909 Unspecified asthma, uncomplicated; F41.9 Anxiety disorder, unspecified; M19.90 Unspecified osteoarthritis, unspecified site; F32.9 Major depressive disorder, single episode, unspecified; Z88.0 Allergy status to penicillin; Z88.1 Allergy status to other antibiotic agents; Z79.82 Long term (current) use of aspirin; Z79.01 Long term (current) use of anticoagulants; Z79.899 Other long term (current) drug therapy; Z90.49 Acquired absence of other specified parts of digestive tract; Z91.041 Radiographic dye allergy status; Z91.09 Other allergy status, other than to drugs and biological substances
CPT/HCPCS: 36415; 36600; 80048; 82803; 84484; 85025; 96372; 99285; 99285-25